=== PATIENT | female | born 1965 | race Caucasian/White ===

== ENCOUNTER → 2020-05-25 09:48 | Outpatient (BNVA) | payer OTHER, SELFPAY | PROVIDERS: PCP Internal Medicine; Visit Provider Nurse Practitioner | DX: Z76.89 Persons encountering health services in other specified circumstances (principal) ==

== ENCOUNTER 2020-07-14 13:51 | Emergency (ER) | payer OTHER, SELFPAY ==
[2020-07-14 13:52] VITALS: BP 154/75; PULSE 74; RESP 18; TEMP 37.1; O2SAT 100; BMI 52.0
--- NOTE | 2020-07-14 15:51 | ED_ITS ---
HPI - Nausea/Vomiting/Diarrhea General Chief complaint: Nausea/Vomiting/Diarrhea Stated complaint: VOMITING Time Seen by Provider: 07/14/20 15:33 Source: patient Mode of arrival: ambulatory Limitations: no limitations History of Present Illness HPI Narrative: 54 y/o female presenting with nausea and vomiting starting today after she was seen at the dentist for tooth infection. She was seen in the Urgent Care clinic yesterday for reports of tooth infection for the last 2 weeks. She was prescribed Augmentin and referred to dental today. She states the dentist cleaned her teeth. No plans to remove the tooth at this time due to active infection. On the way home from the dentist she started vomiting. She has worsening mouth pain and a new tender white bubble on the outter gum of her affected tooth. She denies fever or chills. She states she has generalized abdominal pain and epigastric burning. MD elicited complaint: nausea and vomiting Related Data Home Medications Medication Instructions Recorded Confirmed ondansetron HCl 4 mg tablet 4 mg PO Q8H 05/25/20 05/25/20 Previous Rx's Medication Instructions Recorded azithromycin 250 mg tablet See Rx Instructions PO .COMPLEX #6 03/12/20 tab docusate sodium 100 mg capsule 100 mg PO DAILY #30 cap 05/25/20 sennosides 8.6 mg capsule 17.2 mg PO BEDTIME 30 Days #60 cap 05/25/20 amoxicillin 875 mg-potassium 1 tab PO BID 10 Days #20 tab 07/13/20 clavulanate 125 mg tablet chlorhexidine gluconate [Peridex] 15 ml BUCCAL BID #118 ml 07/14/20 clindamycin HCl 300 mg PO Q8H #21 cap 07/14/20 oxycodone 5 mg PO Q6H PRN #10 tab 07/14/20 Allergies Allergy/AdvReac Type Severity Reaction Status Date / Time lamotrigine [LAMOTRIGINE] Allergy Severe Rash Verified 07/14/20 13:56 sulfamethoxazole Allergy Mild ITCHY Verified 07/14/20 13:56 [From ] trimethoprim [From ] Allergy Mild ITCHY Verified 07/14/20 13:56 Septra Allergy Unknown itchy Verified 07/14/20 13:56 Sulfa (Sulfonamide Allergy Unknown itchy Verified 05/25/20 09:50 Antibiotics) Review of Systems Review of Systems: Constitutional: No Fever, No Chills ENT/Mouth: No sore throat, No Rhinorrhea, No Swallowing Difficulty, +tooth pain, +jaw pain Cardiovascular: No Chest Pain, No SOB, No Orthopnea, No Edema Respiratory: No Cough, No Sputum, No Wheezing, No dyspnea Gastrointestinal: + Nausea, + Vomiting, No Diarrhea, + abdominal Pain Musculoskeletal: No joint pain, No Myalgias Skin: No Skin Lesions, No rash Neuro: No Weakness, No Numbness, No Dizziness, + Headache Psych: + Anxiety/Panic, No Depression Heme/Lymph: No Bruising, No Lymphadenopathy [facility] Past Medical History Surgical History (Updated 05/25/20 @ 09:59 by KACIE Davies) History of carpal tunnel release (~2019) History of esophagogastroduodenoscopy (EGD) History of tonsillectomy Hx of colonoscopy Hx of hemorrhoidectomy Family History Family History (Updated 05/25/20 @ 09:56 by KACIE Davies) Mother Stomach problems Father Heart problem Daughter Diabetes Other Bipolar 1 disorder Social History Social History (Updated 05/25/20 @ 09:58 by KACIE Davies) Alcohol intake: current Alcohol intake frequency: a few times a week Alcohol type: wine Smoking Status: Current every day smoker Tobacco Type: E-Cigarette Use of substances other than those prescribed or required for medical reasons: No Substance Use Type: Marijuana Advance Directives: No Advance Directives Information Provided: No Physical Exam Vital Signs: Vital Signs: Last Vital Signs Temp 99.5 F 07/14/20 15:55 Pulse 72 07/14/20 15:55 Resp 19 07/14/20 15:55 BP 154/86 H 07/14/20 15:55 Pulse Ox 99 07/14/20 15:55 Body Mass Index 52.0 Appearance: Alert. Oriented X3. No acute distress. Eyes: Pupils equal, round and reactive to light. ENT: #18/#17 with dental decay and surrounding edema. <1cm fluctuant and white area consistent with abscess. no trismus Neck: Normal inspection. Neck supple. CVS: Normal heart rate and rhythm. Pulses normal. Respiratory: No respiratory distress. Breath sounds normal. Abdomen: Soft and nontender. +BS x4 Skin: Skin warm and dry. Normal skin color. Normal skin turgor. No rashes. Extremities: No lower extremity edema. Neuro: Oriented X 3. No motor deficit. No sensory deficit. Course Course Course Narrative: 54 y/o female presenting with N/V and dental infection. Abscess evident on exam. Topical lidocaine ordered with plan to attempt drainage. Labs, cultures orderd. IV abx, IV anti-emetics and IV pain medicine ordered as well. Reevaluation(s) Reevaluation #1: Patient tolerated drainage well. Labs are unremarkable. No vomiting here. Stable for discharge with PO clinda, pain control and f/u with Dental tomorrow. Patient agrees with plan. Procedures Abscess I/D Site: oral Side (if applicable): left Local Anesthetic: other anesthetic (topical lidocaine ) Technique: incised with blade Sent for culture/gram staining?: No Irrigation: No Packing used?: none Complications: bleeding MDM - Nausea/Vomiting/Diarrhea Lab Data Result diagrams: 07/14/20 16:18 07/14/20 16:18 Labs: Lab Results 07/14/20 07/14/20 07/14/20 Range/Units 16:18 16:18 16:18 WBC 10.0 (4.8-10.8) X10*3/uL RBC 4.17 L (4.20-5.50) X10*6/uL Hgb 13.8 (12.0-16.0) g/dl Hct 40.7 (37-47) % MCV 97.6 (80-98) fL MCH 33.1 H (27.0-33.0) pg MCHC 33.9 (31.0-35.0) g/dl RDW 11.4 (11.0-16.0) % Plt Count 252 (160-400) X10*3/uL MPV 9.2 L (9.4-12.3) fL Immature Gran % (Auto) 0.4 (0.0-0.4) % Neut % (Auto) 75.0 H (45-73) % Lymph % (Auto) 12.0 L (20-40) % [place] % (Auto) 12.1 H (2-11) % Eos % (Auto) 0.1 (0-4) % Baso % (Auto) 0.4 (0-2) % Lymph # (Auto) 1.2 (1.2-4.9) X10*3/uL [place] # (Auto) 1.2 (0.1-1.2) X10*3/uL Eos # (Auto) 0.0 (0.0-0.4) X10*3/uL Baso # (Auto) 0.0 (0.0-0.2) X10*3/uL Abs Immat Gran (auto) 0.04 H (0.00-0.03) X10*3/uL Absolute Neuts (auto) 7.5 (2.0-8.3) X10*3/uL Absolute Nucleated RBC 0.000 (0.0-0.012) X10*3/uL Nucleated RBC % (auto) 0.0 (0.0-0.2) /100WBC Sodium 138 (135-145) mmol/L Potassium 4.3 (3.3-5.1) mmol/L Chloride 100 (96-108) mmol/L Carbon Dioxide 26 (22-29) mmol/L Anion Gap 16 (12-20) BUN 8 L (9-16) mg/dL Creatinine 0.78 (0.5-1.4) mg/dL Estim Creat Clear Calc 100.0 Estimated GFR > 60 Random Glucose 107 (60-115) mg/dL Lactic Acid 0.8 (0.5-2.0) mmol/L Calcium 9.5 (8.4-10.2) mg/dL Magnesium 2.1 (1.6-2.6) mg/dL Total Bilirubin 0.8 (0.0-1.0) mg/dL Direct Bilirubin 0.4 (0.0-0.5) mg/dL AST 22 (5-31) U/L ALT 17 (0-31) U/L Alkaline Phosphatase 95 (39-117) U/L Total Protein 6.9 (6.5-8.0) g/dL Albumin 4.5 (3.5-5.0) g/dL Lipase 36 (8-78) U/L Critical Care Time Critical Care Time Critical Care Time: No Discharge Plan Discharge Clinical Impression: Abscess, dental Patient Disposition: Home, Self-Care Instructions: Dental Abscess (ED) Additional Instructions: Follow up with your dentist tomorrow for re-evaluation. Stop taking the Augmentin and start taking Clindamycin instead. Take the prescribed medication as needed for pain. Recommend alternating Tylenol and Motrin every 4 hours. Use the prescription mouth wash 2 times per day. If you have worsening pain, swelling or any other concerning problem come back to the ER for further evaluation. Prescriptions: New clindamycin HCl 300 mg capsule 300 mg PO Q8H Qty: 21 RF: 0 oxycodone 5 mg tablet 5 mg PO Q6H PRN (Reason: pain) Qty: 10 RF: 0 chlorhexidine gluconate [Peridex] 0.12 % mouthwash 15 ml buccal BID Qty: 118 RF: 0 No Action azithromycin 250 mg tablet See Rx Instructions PO .COMPLEX Qty: 6 RF: 0 amoxicillin-pot clavulanate 875-125 mg tablet 1 tab PO BID 10 Days Qty: 20 RF: 0 ondansetron HCl [Zofran] 4 mg tablet 4 mg PO Q8H RF: 0 senna 8.6 mg capsule 17.2 mg PO BEDTIME 30 Days Qty: 60 RF: 6 docusate sodium [Colace] 100 mg capsule 100 mg PO DAILY Qty: 30 RF: 6
[2020-07-14 15:55] VITALS: BP 154/86; PULSE 72; RESP 19; TEMP 37.5; O2SAT 99
[2020-07-14] MEDS: Lidocaine HCl 4 % Laryng-O-Jet 4 ML 1 APPL TOPICAL (16:27)
[2020-07-14] MEDS: Morphine Sulfate 4 MG/ML CARTRIDGE IVPUSH (16:27)
[2020-07-14] MEDS: Clindamycin Phosphate/D5W 600 MG/50 ML PIGGYBACK 100 MG IV (16:27)
[2020-07-14] MEDS: ondansetron HCL 4 MG/2 ML VIAL IVPUSH (16:27)
[2020-07-14] MEDS: 0.9 % Sodium Chloride 1,000 ML 999 ML IVCONT (16:27)
[2020-07-14 16:31] LABS: MANUAL DIFF FLAG NO
[2020-07-14 16:58] LABS: Basophils Percent Auto 0.4 % (0-2); Eosinophils Percent Auto 0.1 % (0-4); Hematocrit 40.7 % (37-47); Hemoglobin 13.8 g/dl (12.0-16.0); Imm Gran Abs Auto 0.04 X10*3/uL (0.00-0.03); Imm Gran Pct Auto 0.4 % (0.0-0.4); Lymphocytes Absolute Auto 1.2 X10*3/uL (1.2-4.9); Mean Corpuscular HGB Conc 33.9 g/dl (31.0-35.0); Mean Corpuscular Hemoglobin 33.1 pg (27.0-33.0); Mean Corpuscular Volume 97.6 fL (80-98); Mean Platelet Volume 9.2 fL (9.4-12.3); Monocytes Absolute Auto 1.2 X10*3/uL (0.1-1.2); Monocytes Percent Auto 12.1 % (2-11); Neutrophils Absolute Auto 7.5 X10*3/uL (2.0-8.3); Platelet Count 252 X10*3/uL (160-400); Red Blood Count 4.17 X10*6/uL (4.20-5.50); Red Cell Distribution Width 11.4 % (11.0-16.0)
[2020-07-14 16:59] LABS: Lactic Acid 0.8 mmol/L (0.5-2.0)
[2020-07-14 17:03] LABS: Alanine Aminotransferase 17 U/L (0-31); Albumin Level 4.5 g/dL (3.5-5.0); Alkaline Phosphatase 95 U/L (39-117); Anion Gap 16 (12-20); Aspartate Amino Transferase 22 U/L (5-31); Bilirubin Direct 0.4 mg/dL (0.0-0.5); Bilirubin Total 0.8 mg/dL (0.0-1.0); Blood Urea Nitrogen 8 mg/dL (9-16); Calcium 9.5 mg/dL (8.4-10.2); Carbon Dioxide 26 mmol/L (22-29); Chloride 100 mmol/L (96-108); Estimated Glomerular Filt Rate > 60; Glucose Random 107 mg/dL (60-115); Lipase 36 U/L (8-78); Magnesium 2.1 mg/dL (1.6-2.6); Potassium 4.3 mmol/L (3.3-5.1); Sodium 138 mmol/L (135-145); Total Protein 6.9 g/dL (6.5-8.0)
[2020-07-14] MEDS: Ketorolac Tromethamine 30 MG/ML VIAL IVPUSH (17:38)
[2020-07-14 17:51] LABS: Glucose Urine UA NEG (NEG); Leukocyte Esterase Urine NEG (NEG); Nitrite Urine NEG (NEG); PH 5.5 (5.0-8.0); Specific Gravity - Urine <= 1.005 (1.005-1.025); Urine Blood NEG (NEG); Urine Ketones 15 MG/DL (NEG); Urine Protein NEG (NEG-TRACE)
[2020-07-14 17:52] LABS: Appearance Urine CLEAR; Color Urine YELLOW
[2020-07-14] MEDS: oxyCODONE HCl Immed Release 5 MG TABLET PO (18:11)
== END 2020-07-14 18:23 | disposition home or self-care (01) ==
PROVIDERS: Physician Assistant; Emergency Provider Emergency Medicine Emergency Medical Services; PCP Internal Medicine
DX: K04.7 Periapical abscess without sinus (principal); R11.2 Nausea with vomiting, unspecified; R10.13 Epigastric pain; F12.90 Cannabis use, unspecified, uncomplicated; F17.200 Nicotine dependence, unspecified, uncomplicated; Z71.6 Tobacco abuse counseling; Z79.899 Other long term (current) drug therapy
CPT/HCPCS: 36415; 40800; 80048; 80076; 81003; 83605; 83690; 83735; 85025; 87040; 96361; 96374; 96375; 99284; J1885; J2270; J2405

== ENCOUNTER 2020-09-30 14:49 | Outpatient (REF) | payer OTHER, SELFPAY ==
[2020-10-07 03:52] LABS: HPV mRNA E6/E7 Not Detected (Not Detected)
== END 2020-09-30 14:50 | disposition home or self-care (01) ==
LOC: HO.LAB 14:49
PROVIDERS: Visit Provider Internal Medicine
DX: Z12.4 Encounter for screening for malignant neoplasm of cervix (principal); Z11.51 Encounter for screening for human papillomavirus (HPV)
CPT/HCPCS: 87624; 88142

== ENCOUNTER 2020-10-04 16:25 | Inpatient (IN) | payer OTHER, SELFPAY ==
--- NOTE | ~2020-10-04 | CT_ITS ---
EXAMINATION: CT ABDOMEN AND PELVIS WITH CONTRAST CLINICAL INFORMATION: Abdomen pain COMPARISON: Portions of a previous study 09/18/19 TECHNIQUE: Multidetector volumetric images were obtained from the superior aspect of the liver through the pubic symphysis following administration 85 mL of Omnipaque 350 intravenous contrast. Sagittal and coronal reformatted images were obtained on the technologist's workstation. Oral contrast: No This CT examination was performed using dose optimization techniques as appropriate, variously including the following: *Automated exposure control *Adjustment of mA and/or kV according to patient size (this includes techniques or standardized protocols for targeted exams where dose is matched to indication/reason for exam; i.e. extremities or head) *Use of iterative reconstruction technique DLP: 365 mGy-cm FINDINGS: Digital Claims Supervisor: Moderate amount of gas within the abdomen and pelvis. Fecal residue within the colon. No evidence of small bowel obstruction. LUNG BASES: No suspicious abnormality in the visualized portions of the lower chest. LIVER, GALLBLADDER, AND BILIARY TREE: There are multiple sharply circumscribed low attenuating liver lesions. These are likely cysts and are unchanged. These do not require any further evaluation. There are no opaque gallstones. There is no biliary dilation. PANCREAS: Within normal limits SPLEEN: Normal ADRENAL GLANDS: No suspicious abnormality KIDNEYS AND URETERS: There is no dilation of the urinary collecting system. The nephrograms are symmetric. No suspicious renal mass. BLADDER: The bladder wall is mildly thickened. No focal mass. GASTROINTESTINAL TRACT: There is metallic suture at the anorectal junction. The sigmoid colon is markedly abnormal. There is colonic wall thickening luminal narrowing and pericolonic fat stranding. There are diverticula in the area. No convincing drainable abscess. No evidence of small bowel obstruction. The splenic flexure and descending colon are not well evaluated. The stomach is difficult to assess due to incomplete distention. ABDOMINAL WALL: No significant hernia is appreciated. LYMPH NODES: There are no measurably enlarged lymph nodes. VASCULAR: There is no aortic aneurysm. The portal vein enhances. PELVIC VISCERA: The uterus appears within normal limits. There is no large adnexal mass. OSSEOUS STRUCTURES: No suspicious abnormality CT/CT abdomen pelvis w con IMPRESSION: There are abnormalities most consistent with acute sigmoid diverticulitis without definite drainable abscess or bowel obstruction. There is no pneumatosis or pneumoperitoneum. Previous anorectal junction surgery.
[2020-10-04 16:56] VITALS: BP 130/73; PULSE 99; RESP 16; TEMP 37.5; O2SAT 97; BMI 23.6
[2020-10-04 17:25] LABS: Basophils Absolute Auto 0.1 X10*3/uL (0.0-0.2); Basophils Percent Auto 0.6 % (0-2); Eosinophils Absolute Auto 0.1 X10*3/uL (0.0-0.4); Hematocrit 39.4 % (37-47); Hemoglobin 13.4 g/dl (12.0-16.0); Imm Gran Abs Auto 0.04 X10*3/uL (0.00-0.03); Imm Gran Pct Auto 0.3 % (0.0-0.4); Lymphocytes Absolute Auto 1.5 X10*3/uL (1.2-4.9); Lymphocytes Percent Auto 12.5 % (20-40); MANUAL DIFF FLAG SCAN; Mean Corpuscular Hemoglobin 33.4 pg (27.0-33.0); Mean Corpuscular Volume 98.3 fL (80-98); Mean Platelet Volume 8.8 fL (9.4-12.3); Monocytes Absolute Auto 1.9 X10*3/uL (0.1-1.2); Monocytes Percent Auto 15.8 % (2-11); Neutrophils Absolute Auto 8.3 X10*3/uL (2.0-8.3); Neutrophils Percent Auto 69.8 % (45-73); Platelet Count 246 X10*3/uL (160-400); Red Blood Count 4.01 X10*6/uL (4.20-5.50); Red Cell Distribution Width 11.7 % (11.0-16.0); SCAN SMEAR FLAG 1; White Blood Count 11.9 X10*3/uL (4.8-10.8)
[2020-10-04 17:29] LABS: Glucose Urine UA NEG (NEG); Leukocyte Esterase Urine TRACE (NEG); Nitrite Urine NEG (NEG); Specific Gravity - Urine 1.015 (1.005-1.025); UACC Culture Trigger YES; Urine Blood NEG (NEG); Urine Ketones 15 MG/DL (NEG); Urine Protein NEG (NEG-TRACE)
[2020-10-04 17:30] LABS: Appearance Urine CLEAR; Color Urine YELLOW
[2020-10-04 17:41] LABS: Bacteria Urine TRACE /LPF; Squamous Epithelial Cell Urine TRACE /LPF
[2020-10-04 17:47] LABS: SLIDE REVIEW VERIFIED
[2020-10-04 18:05] LABS: Alanine Aminotransferase 17 U/L (0-31); Albumin Level 4.6 g/dL (3.5-5.0); Alkaline Phosphatase 92 U/L (39-117); Anion Gap 13 (12-20); Aspartate Amino Transferase 21 U/L (5-31); Bilirubin Total 0.6 mg/dL (0.0-1.0); Blood Urea Nitrogen 8 mg/dL (9-16); Calcium 9.5 mg/dL (8.4-10.2); Carbon Dioxide 26 mmol/L (22-29); Chloride 101 mmol/L (96-108); Creatinine Clr Calc Pharmacy 59.9; Estimated Glomerular Filt Rate > 60; Glucose Random 90 mg/dL (60-115); Potassium 4.2 mmol/L (3.3-5.1); Sodium 136 mmol/L (135-145); Total Protein 6.9 g/dL (6.5-8.0)
[2020-10-04 19:10] VITALS: RESP 18
[2020-10-04] MEDS: 0.9 % Sodium Chloride 1,000 ML 999 ML IVCONT ×2 (19:10→21:17)
[2020-10-04] MEDS: Morphine Sulfate 4 MG/ML CARTRIDGE IVPUSH ×2 (19:10→21:16)
[2020-10-04] MEDS: ondansetron HCL 4 MG/2 ML VIAL IVPUSH (19:10)
[2020-10-04 19:18] VITALS: BP 127/70; PULSE 71; RESP 16; TEMP 36.6; O2SAT 97
--- NOTE | 2020-10-04 19:19 | ED_ITS ---
HPI - Abdominal Pain General Chief Complaint: Abdominal Pain Stated Complaint: abdominal pain Time Seen by Provider: 10/04/20 17:29 Source: patient Mode of arrival: ambulatory Limitations: no limitations History of Present Illness HPI narrative: 54-year-old female with past medical history of pancreatitis, celiac disease, GERD, IBS presented to the emergency department with diffuse abdominal pain, nausea, vomiting, diarrhea, intermittent constipation, and bright red blood per rectum with large clots for several days. States that she ate soy products on the , and feels that she could be having a reaction or gastroenteritis. She is describing 10/10 rectal pain, feels more like a pressure. This pressure is unrelieved with bowel movements. She denies chest pain or pressure, palpitations abdominal distention, dysuria, hematuria, fevers, chills, and edema. MD elicited complaint: abdominal pain Pertinent past history: constipation and gastrointestinal bleeding Onset (ago): week(s) (1) Pain Consistency: constant Location: diffuse Severity: severe Pain scale (0-10): 10 Quality: cramping, stabbing and aching Exacerbating factors: eating and bowel movement Relieving factors: nothing Associated symptoms: nausea, vomiting and diarrhea Related Data Home Medications Medication Instructions Recorded Confirmed buspirone 30 mg tablet 30 mg PO BID 09/30/20 10/04/20 carbamazepine 200 mg tablet 200 mg PO BID 09/30/20 10/04/20 dicyclomine [Bentyl] 10 mg PO BID PRN 10/04/20 10/04/20 sennosides [Senna Laxative] 2 tab PO BEDTIME PRN 10/04/20 10/04/20 Allergies Allergy/AdvReac Type Severity Reaction Status Date / Time lamotrigine [LAMOTRIGINE] Allergy Severe Rash Verified 09/30/20 13:06 sulfamethoxazole Allergy Mild ITCHY Verified 09/30/20 13:06 [From ] trimethoprim [From ] Allergy Mild ITCHY Verified 09/30/20 13:06 Septra Allergy Unknown itchy Verified 09/30/20 13:06 Sulfa (Sulfonamide Allergy Unknown itchy Verified 09/30/20 13:06 Antibiotics) Review of Systems Review of Systems Constitutional: No Weight loss, No Fever, No Chills, No Night Sweats, No Fatigue, No Malaise ENT/Mouth: No Hearing loss, No Ear Pain, No Nasal Congestion, No Sinus Pain, No Hoarseness, No sore throat, No Rhinorrhea, No Swallowing Difficulty Eyes: No Eye Pain, No Swelling, No Redness, No Foreign Body, No Discharge, No Vision Changes Cardiovascular: No Chest Pain, No SOB, No Dyspnea on Exertion, No Orthopnea, No Edema, No Palpitations Respiratory: No Cough, No Sputum, No Wheezing, No Smoke Exposure, No Dyspnea Gastrointestinal: Positive Nausea, Positive Vomiting, positive Diarrhea, positive abdominal Pain, positive Hematochezia, No Melena Genitourinary: no irregular bleeding, positive Dysuria, No Urinary Frequency, No Hematuria, No Urinary Incontinence, No Urgency, No Flank Pain, No Urinary Flow Changes, No Hesitancy Musculoskeletal: No joint pain, No Myalgias, No Joint Swelling Skin: No Skin Lesions, No rash Neuro: No Weakness, No Numbness, No Paresthesias, No Loss of Consciousness, No Dizziness, No Headache Psych: No Anxiety/Panic, No Depression, No SI/HI/AH/VH, No Social Issues Heme/Lymph: No Bruising, No Bleeding,No Lymphadenopathy Endocrine: No Polyuria, No Polydipsia, No Temperature Intolerance Yes all other systems are reviewed and are negative Physical Exam Vital Signs: Vital Signs: Last Vital Signs Temp 98 F 10/04/20 19:18 Pulse 71 10/04/20 19:18 Resp 18 10/04/20 21:16 BP 127/70 10/04/20 19:18 Pulse Ox 97 10/04/20 19:18 Body Mass Index 23.6 Appearance: Alert. Oriented X3. No acute distress. Head: Normal external exam. Normocephalic. Atraumatic. No Wolf signs noted. No raccoon eyes noted Eyes: PERRLA. EOMI. Conjunctiva and sclera normal. Eyelids normal. ENT: TM's Normal. Pharynx normal. Uvula midline. Moist mucous membranes. No trismus noted. No drooling noted. No muffled voice noted. Neck: Normal inspection. Neck supple. No adenopathy. Thyroid Normal. No meningeal signs. No neck mass noted. CVS: Tachycardic heart rate and rhythm. Heart sound normal. No murmurs noted. Pulses equal to all extremities. Respiratory: No respiratory distress. Painless inspiration. Breath sounds normal. No wheezes/rales/rhonchi noted. Chest nontender. No accessory muscle usage noted or decreased air movement noted. Abdomen: Soft and diffusely tender, no rigidity or rebound. Bowel sounds normal in all 4 quadrants. No distention noted. No organomegaly noted. No visible injury noted. Back: No CVA tenderness. Full range of motion noted. Skin: Skin warm and dry. Normal skin color. Normal skin turgor. No rashes/lesions/lacerations noted. Extremities: No lower extremity edema. Extremities exhibit normal range of motion. Extremities nontender. Neuro: cranial nerves 2-12 intact, no focal neural deficits, strength 5/5 to all extremities, No motor deficit. No sensory deficit. Course Course Course Narrative: 54-year-old female with past medical history of pancreatitis, celiac disease, GERD, IBS presented to the emergency department with diffuse abdominal pain, nausea, vomiting, diarrhea, intermittent constipation, and bright red blood per rectum with large clots for several days. Labs are protocoled while she was in the emergency department waiting room, white count elevated at 11.9, H&H 13.4/39.4 does not indicate any significant blood loss, urinalysis positive for trace leukocyte esterase, wbc's, and bacteria. Will order CT scan of abdomen pelvis with contrast. Will treat with 1 L of fluid, morphine, and Zofran. Approximately 40 minutes after IV medications patient states that the pain is 4/10. CT scan of abdomen pending. CT of abdomen and pelvis indicates diverticulitis, will order lactic, cultures, give ceftriaxone and Flagyl as she does have a UTI with symptoms of dysuria. 9:10 p.m. discussion with hospitalist regarding plan of care to admit for diverticulitis and UTI. MDM - Abdominal Pain Differential Diagnosis Differential diagnosis: Likely abdominal pain, calculus of kidney, constipation, diverticulitis, gastroenteritis, pancreatitis and peptic ulcer disease Medical Records Attestation: I reviewed the patient's medical records. Lab Data Attestation: I reviewed the patient's lab results. Result diagrams: 10/04/20 17:14 10/04/20 17:14 Labs: Lab Results 10/04/20 10/04/20 10/04/20 Range/Units 17:14 17:14 17:14 WBC 11.9 H (4.8-10.8) X10*3/uL RBC 4.01 L (4.20-5.50) X10*6/uL Hgb 13.4 (12.0-16.0) g/dl Hct 39.4 (37-47) % MCV 98.3 H (80-98) fL MCH 33.4 H (27.0-33.0) pg MCHC 34.0 (31.0-35.0) g/dl RDW 11.7 (11.0-16.0) % Plt Count 246 (160-400) X10*3/uL MPV 8.8 L (9.4-12.3) fL Immature Gran % (Auto) 0.3 (0.0-0.4) % Neut % (Auto) 69.8 (45-73) % Lymph % (Auto) 12.5 L (20-40) % [place] % (Auto) 15.8 H (2-11) % Eos % (Auto) 1.0 (0-4) % Baso % (Auto) 0.6 (0-2) % Lymph # (Auto) 1.5 (1.2-4.9) X10*3/uL [place] # (Auto) 1.9 H (0.1-1.2) X10*3/uL Eos # (Auto) 0.1 (0.0-0.4) X10*3/uL Baso # (Auto) 0.1 (0.0-0.2) X10*3/uL Abs Immat Gran (auto) 0.04 H (0.00-0.03) X10*3/uL Absolute Neuts (auto) 8.3 (2.0-8.3) X10*3/uL Absolute Nucleated RBC 0.000 (0.0-0.012) X10*3/uL Nucleated RBC % (auto) 0.0 (0.0-0.2) /100WBC Smear Tech's Comments VERIFIED Hold Purple Top SEE NOTE PT 10.8 (10.8-13.0) SEC INR 0.9 (0.9-1.1) Hold Blue Top SEE NOTE Sodium (135-145) mmol/L Potassium (3.3-5.1) mmol/L Chloride (96-108) mmol/L Carbon Dioxide (22-29) mmol/L Anion Gap (12-20) BUN (9-16) mg/dL Creatinine (0.5-1.4) mg/dL Estim Creat Clear Calc Estimated GFR Random Glucose (60-115) mg/dL Lactic Acid (0.5-2.0) mmol/L Calcium (8.4-10.2) mg/dL Total Bilirubin (0.0-1.0) mg/dL Direct Bilirubin (0.0-0.5) mg/dL AST (5-31) U/L ALT (0-31) U/L Alkaline Phosphatase (39-117) U/L Total Protein (6.5-8.0) g/dL Albumin (3.5-5.0) g/dL Lipase (8-78) U/L Urine Color Urine Appearance Urine pH (5.0-8.0) Ur Specific [place] (1.005-1.025) Urine Protein (NEG-TRACE) MG/DL Urine Glucose (UA) (NEG) MG/DL Urine Ketones (NEG) MG/DL Urine Blood (NEG) Urine Nitrite (NEG) Ur Leukocyte Esterase (NEG) Urine RBC (0) /HPF Urine WBC (0-4) /HPF Ur Squamous Epith Cells /LPF Urine Bacteria /LPF Stool Occult Blood (NEGATIVE) COVID-19 ([facility]) (Negative) COVID-19 Clin Com 10/04/20 10/04/20 10/04/20 Range/Units 17:14 17:15 19:09 WBC (4.8-10.8) X10*3/uL RBC (4.20-5.50) X10*6/uL Hgb (12.0-16.0) g/dl Hct (37-47) % MCV (80-98) fL MCH (27.0-33.0) pg MCHC (31.0-35.0) g/dl RDW (11.0-16.0) % Plt Count (160-400) X10*3/uL MPV (9.4-12.3) fL Immature Gran % (Auto) (0.0-0.4) % Neut % (Auto) (45-73) % Lymph % (Auto) (20-40) % [place] % (Auto) (2-11) % Eos % (Auto) (0-4) % Baso % (Auto) (0-2) % Lymph # (Auto) (1.2-4.9) X10*3/uL [place] # (Auto) (0.1-1.2) X10*3/uL Eos # (Auto) (0.0-0.4) X10*3/uL Baso # (Auto) (0.0-0.2) X10*3/uL Abs Immat Gran (auto) (0.00-0.03) X10*3/uL Absolute Neuts (auto) (2.0-8.3) X10*3/uL Absolute Nucleated RBC (0.0-0.012) X10*3/uL Nucleated RBC % (auto) (0.0-0.2) /100WBC Smear Tech's Comments Hold Purple Top PT (10.8-13.0) SEC INR (0.9-1.1) Hold Blue Top Sodium 136 (135-145) mmol/L Potassium 4.2 (3.3-5.1) mmol/L Chloride 101 (96-108) mmol/L Carbon Dioxide 26 (22-29) mmol/L Anion Gap 13 (12-20) BUN 8 L (9-16) mg/dL Creatinine 0.79 (0.5-1.4) mg/dL Estim Creat Clear Calc 59.9 Estimated GFR > 60 Random Glucose 90 (60-115) mg/dL Lactic Acid (0.5-2.0) mmol/L Calcium 9.5 (8.4-10.2) mg/dL Total Bilirubin 0.6 (0.0-1.0) mg/dL Direct Bilirubin 0.3 (0.0-0.5) mg/dL AST 21 (5-31) U/L ALT 17 (0-31) U/L Alkaline Phosphatase 92 (39-117) U/L Total Protein 6.9 (6.5-8.0) g/dL Albumin 4.6 (3.5-5.0) g/dL Lipase 32 (8-78) U/L Urine Color YELLOW Urine Appearance CLEAR Urine pH 7.0 (5.0-8.0) Ur Specific [place] 1.015 (1.005-1.025) Urine Protein NEG (NEG-TRACE) MG/DL Urine Glucose (UA) NEG (NEG) MG/DL Urine Ketones 15 (NEG) MG/DL Urine Blood NEG (NEG) Urine Nitrite NEG (NEG) Ur Leukocyte Esterase TRACE H (NEG) Urine RBC 1-4 (0) /HPF Urine WBC 5-9 H (0-4) /HPF Ur Squamous Epith Cells TRACE /LPF Urine Bacteria TRACE /LPF Stool Occult Blood NEGATIVE (NEGATIVE) COVID-19 ([facility]) (Negative) COVID-19 Clin Com 10/04/20 10/04/20 Range/Units 20:36 20:36 WBC (4.8-10.8) X10*3/uL RBC (4.20-5.50) X10*6/uL Hgb (12.0-16.0) g/dl Hct (37-47) % MCV (80-98) fL MCH (27.0-33.0) pg MCHC (31.0-35.0) g/dl RDW (11.0-16.0) % Plt Count (160-400) X10*3/uL MPV (9.4-12.3) fL Immature Gran % (Auto) (0.0-0.4) % Neut % (Auto) (45-73) % Lymph % (Auto) (20-40) % [place] % (Auto) (2-11) % Eos % (Auto) (0-4) % Baso % (Auto) (0-2) % Lymph # (Auto) (1.2-4.9) X10*3/uL [place] # (Auto) (0.1-1.2) X10*3/uL Eos # (Auto) (0.0-0.4) X10*3/uL Baso # (Auto) (0.0-0.2) X10*3/uL Abs Immat Gran (auto) (0.00-0.03) X10*3/uL Absolute Neuts (auto) (2.0-8.3) X10*3/uL Absolute Nucleated RBC (0.0-0.012) X10*3/uL Nucleated RBC % (auto) (0.0-0.2) /100WBC Smear Tech's Comments Hold Purple Top PT (10.8-13.0) SEC INR (0.9-1.1) Hold Blue Top Sodium (135-145) mmol/L Potassium (3.3-5.1) mmol/L Chloride (96-108) mmol/L Carbon Dioxide (22-29) mmol/L Anion Gap (12-20) BUN (9-16) mg/dL Creatinine (0.5-1.4) mg/dL Estim Creat Clear Calc Estimated GFR Random Glucose (60-115) mg/dL Lactic Acid 0.9 (0.5-2.0) mmol/L Calcium (8.4-10.2) mg/dL Total Bilirubin (0.0-1.0) mg/dL Direct Bilirubin (0.0-0.5) mg/dL AST (5-31) U/L ALT (0-31) U/L Alkaline Phosphatase (39-117) U/L Total Protein (6.5-8.0) g/dL Albumin (3.5-5.0) g/dL Lipase (8-78) U/L Urine Color Urine Appearance Urine pH (5.0-8.0) Ur Specific [place] (1.005-1.025) Urine Protein (NEG-TRACE) MG/DL Urine Glucose (UA) (NEG) MG/DL Urine Ketones (NEG) MG/DL Urine Blood (NEG) Urine Nitrite (NEG) Ur Leukocyte Esterase (NEG) Urine RBC (0) /HPF Urine WBC (0-4) /HPF Ur Squamous Epith Cells /LPF Urine Bacteria /LPF Stool Occult Blood (NEGATIVE) COVID-19 ([facility]) Negative (Negative) COVID-19 Clin Com See Note Imaging Data CT scan - abdomen: Attestation: I personally reviewed and interpreted this imaging study as follows: Radiologist's impression: EXAMINATION: CT ABDOMEN AND PELVIS WITH CONTRAST CLINICAL INFORMATION: Abdomen pain COMPARISON: Portions of a previous study 09/18/19 TECHNIQUE: Multidetector volumetric images were obtained from the superior aspect of the liver through the pubic symphysis following administration 85 mL of Omnipaque 350 intravenous contrast. Sagittal and coronal reformatted images were obtained on the technologist's workstation. Oral contrast: No This CT examination was performed using dose optimization techniques as appropriate, variously including the following: *Automated exposure control *Adjustment of mA and/or kV according to patient size (this includes techniques or standardized protocols for targeted exams where dose is matched to indication/reason for exam; i.e. extremities or head) *Use of iterative reconstruction technique DLP: 365 mGy-cm FINDINGS: Digital Crap Game Box Person: Moderate amount of gas within the abdomen and pelvis. Fecal residue within the colon. No evidence of small bowel obstruction. LUNG BASES: No suspicious abnormality in the visualized portions of the lower chest. LIVER, GALLBLADDER, AND BILIARY TREE: There are multiple sharply circumscribed low attenuating liver lesions. These are likely cysts and are unchanged. These do not require any further evaluation. There are no opaque gallstones. There is no biliary dilation. PANCREAS: Within normal limits SPLEEN: Normal ADRENAL GLANDS: No suspicious abnormality KIDNEYS AND URETERS: There is no dilation of the urinary collecting system. The nephrograms are symmetric. No suspicious renal mass. BLADDER: The bladder wall is mildly thickened. No focal mass. GASTROINTESTINAL TRACT: There is metallic suture at the anorectal junction. The sigmoid colon is markedly abnormal. There is colonic wall thickening luminal narrowing and pericolonic fat stranding. There are diverticula in the area. No convincing drainable abscess. No evidence of small bowel obstruction. The splenic flexure and descending colon are not well evaluated. The stomach is difficult to assess due to incomplete distention. ABDOMINAL WALL: No significant hernia is appreciated. LYMPH NODES: There are no measurably enlarged lymph nodes. VASCULAR: There is no aortic aneurysm. The portal vein enhances. PELVIC VISCERA: The uterus appears within normal limits. There is no large adnexal mass. OSSEOUS STRUCTURES: No suspicious abnormality CT/CT abdomen pelvis w con IMPRESSION: There are abnormalities most consistent with acute sigmoid diverticulitis without definite drainable abscess or bowel obstruction. There is no pneumatosis or pneumoperitoneum. Previous anorectal junction surgery. Critical Care Time Critical Care Time Critical Care Time: Yes Total Critical Care Time: 45 Attestation: I have personally provided critical care time exclusive of time spent on separately billable procedures. Time includes review of laboratory data, radi ology results, discussion with consultants, and monitoring for potential decompensation. Interventions were performed as documented. Discharge Plan Discharge Clinical Impression: Diverticulitis UTI (urinary tract infection) Qualifiers: Urinary tract infection type: acute cystitis Hematuria presence: with hematuria Qualified Code(s): N30.01 - Acute cystitis with hematuria Patient Disposition: Admitted As Inpatient [facility] Past Medical History Attestation statement: The following information was validated with the patient. Source: old records reviewed Medical History Annual physical exam Bipolar 1 disorder Celiac disease Environmental allergies IBS (irritable bowel syndrome) Mammogram declined Vitamin D deficiency Surgical History History of carpal tunnel release (~2019) History of esophagogastroduodenoscopy (EGD) History of tonsillectomy Hx of colonoscopy Hx of hemorrhoidectomy Family History Family History Mother Stomach problems Father Heart problem Daughter Diabetes Other Bipolar 1 disorder Social History Social History Alcohol intake: never Smoking Status: Never smoker Tobacco Type: E-Cigarette Use of substances other than those prescribed or required for medical reasons: No Substance Use Type: Marijuana Advance Directives: No Advance Directives Information Provided: No
[2020-10-04 19:23] LABS: OBS1 NEGATIVE (NEGATIVE)
[2020-10-04 19:24] LABS: OBS Int Ctl Valid YES
[2020-10-04 19:28] LABS: INTERNATIONAL NORM RATIO 0.9 (0.9-1.1); Prothrombin Time 10.8 SEC (10.8-13.0)
[2020-10-04] MEDS: iohexoL 350 MG/ML 100 ML INFUS..BTL IV (19:38)
[2020-10-04 19:44] LABS: Bilirubin Direct 0.3 mg/dL (0.0-0.5); Lipase 32 U/L (8-78)
[2020-10-04] MEDS: cefTRIAXone sodium 1 GM in 0.9 % Sodium Chloride 50 ML IV (20:43)
[2020-10-04 20:57] LABS: COVID-19 Test Negative (Negative)
[2020-10-04 21:05] LABS: Lactic Acid 0.9 mmol/L (0.5-2.0)
[2020-10-04 21:16] VITALS: RESP 18
[2020-10-04] MEDS: metroNIDAZOLE/NS 500 MG/100 ML PIGGYBACK 100 MG IV (21:16)
--- NOTE | 2020-10-04 21:26 | P.HPHOSP_ITS ---
History of Present Illness Date of Service: 10/04/20 Chief Complaint: Abd pain 54-year-old female with a past medical history of celiac disease, GERD, IBS, history of pancreatitis presented to the hospital with a chief complaint of abdominal pain for past 1 week. Patient mentions that abdominal pain is crampy in nature associated with nausea and vomiting. Also complains of diarrhea. Patient also mentions she initially noted bright lipid per rectum. But for the last 2 days she has not had any blood in the stool. Denies any fever chills cough. Denies any numbness tingling. As the symptoms were not improving came to the ER for further evaluation. Denies any chest pain palpitations lightheadedness or dizziness. Review of all other systems is negative except mentioned above ER course: Per ER team patient noted to have mild abdominal tenderness, no guarding no rigidity. Given IV pain medications. H&H stable. Mild leukocytosis. Urinalysis abnormal consistent with UTI. CT scan showed diverticulitis.guaiac negative; given antibiotics COUNTS INCLUDE 234 BEDS AT THE [facility] Medical History (Updated 10/20/20 @ 13:01 by Carlny Azul MD) Annual physical exam Bipolar 1 disorder Celiac disease Celiac disease Diverticulosis Environmental allergies GERD (gastroesophageal reflux disease) IBS (irritable bowel syndrome) IBS (irritable bowel syndrome) Mammogram declined Vitamin D deficiency Family History Mother Stomach problems Father Heart problem Daughter Diabetes Other Bipolar 1 disorder Surgical History History of carpal tunnel release (~2019) History of esophagogastroduodenoscopy (EGD) History of tonsillectomy Hx of colonoscopy Hx of hemorrhoidectomy Social History Household Members: Significant Other Housing: House Do you presently have visiting nurse or other home services: No Alcohol intake: never Smoking Status: Never smoker Tobacco Type: E-Cigarette Substance Use Type: Marijuana service: No Current occupational status: disabled Meds Allergies Allergy/AdvReac Type Severity Reaction Status Date / Time lamotrigine [LAMOTRIGINE] Allergy Severe Rash Verified 10/20/20 12:35 sulfamethoxazole Allergy Mild ITCHY Verified 10/20/20 12:35 [From ] trimethoprim [From ] Allergy Mild ITCHY Verified 10/20/20 12:35 Septra Allergy Unknown itchy Verified 10/20/20 12:35 Sulfa (Sulfonamide Allergy Unknown itchy Verified 10/20/20 12:35 Antibiotics) Active Medications: Current Medications Generic Name Dose Route Start Last Admin Trade Name Freq PRN Reason Stop Dose Admin Sodium Chloride 1,000 mls @ 999 mls/hr 10/04/20 20:30 10/04/20 21:17 Ns IVCONT 10/04/20 21:30 999 mls/hr .Q1H1M SY Administration Dextrose/Sodium Chloride 1,000 mls @ 100 mls/hr 10/04/20 21:15 D51/2ns IVCONT .Q10H SY Ceftriaxone Sodium 1 gm/ 50 mls @ 100 mls/hr 10/05/20 21:00 Sodium Chloride IV Q24H SY Metronidazole 500 mg in 100 mls @ 100 mls/hr 10/05/20 05:00 Flagyl IV Q8H SY Pantoprazole Sodium 40 mg 10/05/20 06:30 Pantoprazole Sodium 40 Mg/10 Ml Vial IVPUSH DAILY@0630 [facility] Sodium Chloride 3 ml 10/05/20 00:00 0.9 % Sodium Chloride Flush 3 Ml Syringe IVFLUSH QSHIFT [facility] Home Medications Medication Instructions Recorded Confirmed Last Taken Type buspirone 30 mg tablet 30 mg PO BID 09/30/20 10/04/20 10/04/20 09:00 History carbamazepine 200 mg tablet 200 mg PO BID 09/30/20 10/04/20 10/04/20 09:00 History dicyclomine 10 mg PO BID PRN 10/04/20 10/04/20 Unknown History sennosides [Senna Laxative] 2 tab PO BEDTIME PRN 10/04/20 10/04/20 Unknown History Physical Exam Vital Signs and Narrative: Vital Signs: Last Vital Signs Temp 98 F 10/04/20 19:18 Pulse 71 10/04/20 19:18 Resp 18 10/04/20 21:16 BP 127/70 10/04/20 19:18 Pulse Ox 97 10/04/20 19:18 Body Mass Index 23.6 Gen: Appears be in no acute distress HEENT: NCAT, Moist mucosa. Pulmonary: Vesicular breath sounds, fair air entry CVS: Normal S1-S2 Abdomen: BS+, Soft, tender the lower quadrants. No guarding no rigidity Extremities: Warm well perfused Neuro: Alert and awake. Results Labs CBC and Chem 7: 10/06/20 05:03 10/05/20 06:12 Labs: Laboratory Results - last 24 hr 10/04/20 10/04/20 10/04/20 17:14 17:14 17:14 MCV 98.3 H MCH 33.4 H MCHC 34.0 RDW 11.7 Plt Count 246 MPV 8.8 L Immature Gran % (Auto) 0.3 Neut % (Auto) 69.8 Lymph % (Auto) 12.5 L [place] % (Auto) 15.8 H Eos % (Auto) 1.0 Baso % (Auto) 0.6 Lymph # (Auto) 1.5 [place] # (Auto) 1.9 H Eos # (Auto) 0.1 Baso # (Auto) 0.1 Abs Immat Gran (auto) 0.04 H Absolute Neuts (auto) 8.3 Absolute Nucleated RBC 0.000 Nucleated RBC % (auto) 0.0 Smear Tech's Comments VERIFIED Hold Purple Top SEE NOTE PT 10.8 INR 0.9 Hold Blue Top SEE NOTE Anion Gap Estim Creat Clear Calc Estimated GFR Random Glucose Lactic Acid Calcium Total Bilirubin Direct Bilirubin AST ALT Alkaline Phosphatase Total Protein Albumin Lipase Urine Color Urine Appearance Urine pH Ur Specific [place] Urine Protein Urine Glucose (UA) Urine Ketones Urine Blood Urine Nitrite Ur Leukocyte Esterase Urine RBC Urine WBC Ur Squamous Epith Cells Urine Bacteria Stool Occult Blood COVID-19 ([facility]) COVID-19 Clin [facility] 10/04/20 10/04/20 10/04/20 17:14 17:15 19:09 MCV MCH MCHC RDW Plt Count MPV Immature Gran % (Auto) Neut % (Auto) Lymph % (Auto) [place] % (Auto) Eos % (Auto) Baso % (Auto) Lymph # (Auto) [place] # (Auto) Eos # (Auto) Baso # (Auto) Abs Immat Gran (auto) Absolute Neuts (auto) Absolute Nucleated RBC Nucleated RBC % (auto) Smear Tech's Comments Hold Purple Top PT INR Hold Blue Top Anion Gap 13 Estim Creat Clear Calc 59.9 Estimated GFR > 60 Random Glucose 90 Lactic Acid Calcium 9.5 Total Bilirubin 0.6 Direct Bilirubin 0.3 AST 21 ALT 17 Alkaline Phosphatase 92 Total Protein 6.9 Albumin 4.6 Lipase 32 Urine Color YELLOW Urine Appearance CLEAR Urine pH 7.0 Ur Specific [place] 1.015 Urine Protein NEG Urine Glucose (UA) NEG Urine Ketones 15 Urine Blood NEG Urine Nitrite NEG Ur Leukocyte Esterase TRACE H Urine RBC 1-4 Urine WBC 5-9 H Ur Squamous Epith Cells TRACE Urine Bacteria TRACE Stool Occult Blood NEGATIVE COVID-19 ([facility]) COVID-19 Clin Com 10/04/20 10/04/20 20:36 20:36 MCV MCH MCHC RDW Plt Count MPV Immature Gran % (Auto) Neut % (Auto) Lymph % (Auto) [place] % (Auto) Eos % (Auto) Baso % (Auto) Lymph # (Auto) [place] # (Auto) Eos # (Auto) Baso # (Auto) Abs Immat Gran (auto) Absolute Neuts (auto) Absolute Nucleated RBC Nucleated RBC % (auto) Smear Tech's Comments Hold Purple Top PT INR Hold Blue Top Anion Gap Estim Creat Clear Calc Estimated GFR Random Glucose Lactic Acid 0.9 Calcium Total Bilirubin Direct Bilirubin AST ALT Alkaline Phosphatase Total Protein Albumin Lipase Urine Color Urine Appearance Urine pH Ur Specific [place] Urine Protein Urine Glucose (UA) Urine Ketones Urine Blood Urine Nitrite Ur Leukocyte Esterase Urine RBC Urine WBC Ur Squamous Epith Cells Urine Bacteria Stool Occult Blood COVID-19 ([facility]) Negative COVID-19 Clin Com See Note Imaging Radiologist's Impressions: Impressions Abdomen/Pelvis CT 10/04/20 18:53 IMPRESSION: There are abnormalities most consistent with acute sigmoid diverticulitis without definite drainable abscess or bowel obstruction. There is no pneumatosis or pneumoperitoneum. Previous anorectal junction surgery. Assessment and Plan (1) Diverticulitis: Status: Acute 54-year-old female with a past medical history of GERD, celiac disease, IBS, history of pancreatitis presented to the hospital with a chief complaint of nausea vomiting abdominal pain and diarrhea. Also complained of bright red blood per rectum. Acute diverticulitis: Continue ceftriaxone and Flagyl. Will also consult General surgery. NPO, IV fluids, supportive care. Pain control CT scan showed acute sigmoid diverticulitis without definite drainable abscess or bowel obstruction. Bright red blood per rectum: Currently guaiac negative. Serial H& H. Will continue to monitor. GI consult For all other chronic conditions, home medications will be continued DVT prophylaxis: SCD boots Code status: Full code
[2020-10-04] MEDS: Pantoprazole Sodium 40 MG/10 ML VIAL IVPUSH (22:38)
[2020-10-04] MEDS: Dextrose 5 % and 0.45 % NaCl 1,000 ML 100 ML IVCONT (22:38)
[2020-10-05] VITALS (7 sets, daily range): BP systolic 112–151; BP diastolic 57–76; PULSE 51–78; RESP 15–20; TEMP 36.2–37.1; O2SAT 97–99; BMI 23.6
[2020-10-05] MEDS: Acetaminophen 325 MG TABLET 650 MG PO ×4 (02:56→20:51)
[2020-10-05] MEDS: metroNIDAZOLE/NS 500 MG/100 ML PIGGYBACK 100 MG IV ×3 (05:40→21:32)
[2020-10-05 06:22] LABS: MANUAL DIFF FLAG NO
[2020-10-05] MEDS: Pantoprazole Sodium 40 MG/10 ML VIAL IVPUSH (06:35)
[2020-10-05 06:49] LABS: Anion Gap 9 (12-20); Blood Urea Nitrogen 4 mg/dL (9-16); Calcium 8.3 mg/dL (8.4-10.2); Carbon Dioxide 27 mmol/L (22-29); Chloride 107 mmol/L (96-108); Creatinine Clr Calc Pharmacy 64.9; Estimated Glomerular Filt Rate > 60; Glucose Random 104 mg/dL (60-115); Potassium 3.8 mmol/L (3.3-5.1); Sodium 139 mmol/L (135-145)
[2020-10-05 06:57] LABS: Basophils Percent Auto 0.6 % (0-2); Eosinophils Absolute Auto 0.1 X10*3/uL (0.0-0.4); Eosinophils Percent Auto 1.9 % (0-4); Hematocrit 33.8 % (37-47); Hemoglobin 10.9 g/dl (12.0-16.0); Imm Gran Abs Auto 0.02 X10*3/uL (0.00-0.03); Imm Gran Pct Auto 0.3 % (0.0-0.4); Lymphocytes Absolute Auto 2.1 X10*3/uL (1.2-4.9); Lymphocytes Percent Auto 30.6 % (20-40); Mean Corpuscular HGB Conc 32.2 g/dl (31.0-35.0); Mean Corpuscular Hemoglobin 32.9 pg (27.0-33.0); Mean Corpuscular Volume 102.1 fL (80-98); Mean Platelet Volume 8.9 fL (9.4-12.3); Monocytes Percent Auto 14.6 % (2-11); Neutrophils Absolute Auto 3.5 X10*3/uL (2.0-8.3); Platelet Count 199 X10*3/uL (160-400); Red Blood Count 3.31 X10*6/uL (4.20-5.50); White Blood Count 6.8 X10*3/uL (4.8-10.8)
--- NOTE | 2020-10-05 08:45 | P.PNIM_ITS ---
Subjective Subjective Date of Service: 10/05/20 Interval History: Seen in f/u acute diverticulitis, rectal bleed. Pain is better this morning. No blood bowel movment Review of Systems Gen: no fever Resp: no sob, no cough CV: no chest, no AYON, no leg edema GI: No n/v, some abd pain Neuro: No confusion Physical Exam Vital Signs: Vital Signs: Last Vital Signs Temp 98.1 F 10/05/20 02:41 Pulse 52 10/05/20 06:45 Resp 18 10/05/20 06:45 BP 121/67 10/05/20 06:45 Pulse Ox 97 10/05/20 06:45 Body Mass Index 23.6 Const: Other: General: AO X 3, no acute distress Resp: CTA bilateral CVS: S1,S2,RRR GI: +BS, mild mid abdomen tenderness, no distention Skin: No rash Neuro: motor grossly intact Psych: appropriate affect Objective Data Current Medications Generic Name Dose Route Start Last Admin Trade Name Freq PRN Reason Stop Dose Admin Acetaminophen 650 mg 10/05/20 02:46 10/05/20 02:56 Acetaminophen 325 Mg Tablet PO 650 mg Q6H PRN Administration Breakthrough Pain Dextrose/Sodium Chloride 1,000 mls @ 100 mls/hr 10/04/20 21:15 10/04/20 22:38 D51/2ns IVCONT 100 mls/hr .Q10H SY Administration Ceftriaxone Sodium 1 gm/ 50 mls @ 100 mls/hr 10/05/20 21:00 Sodium Chloride IV Q24H SY Metronidazole 500 mg in 100 mls @ 100 mls/hr 10/05/20 05:00 10/05/20 06:35 Flagyl IV Infused Q8H SY Infusion Pantoprazole Sodium 40 mg 10/05/20 06:30 10/05/20 06:35 Pantoprazole Sodium 40 Mg/10 Ml Vial IVPUSH 40 mg DAILY@0630 SY Administration Sodium Chloride 3 ml 10/05/20 00:00 10/05/20 02:58 0.9 % Sodium Chloride Flush 3 Ml Syringe IVFLUSH Not Given QSHIFT [facility] Labs CBC & Chem 7: 10/05/20 06:12 10/05/20 06:12 Microbiology Microbiology Results: Microbiology 10/04/20 17:15 Urine Catheterized - Straight Catheter Urine Culture - Preliminary No growth to date. Assessment and Plan (1) Diverticulitis: Status: Acute Assessment and Plan: 54-year-old female with a past medical history of GERD, celiac disease, IBS, history of pancreatitis presented to the hospital with a chief complaint of nausea vomiting abdominal pain and diarrhea. Also complained of bright red blood per rectum. Acute diverticulitis uncomplcated diverticulitis, no fever, normal WBC/ Continue Ceftriaxone and Flagy Keep NPO for now GI eval pending, Bright red blood per rectum, acut blood loss anemia--possibley from diverticultis, Hgb down from 13 to 10 today Monitor H/H, GI evel pending compression device for dvt proph
[2020-10-05] MEDS: Dextrose 5 % and 0.45 % NaCl 1,000 ML 100 ML IVCONT ×2 (09:15→14:47)
--- NOTE | 2020-10-05 09:58 | PC.NURSE ---
Pt acknowledges NPO status. Awaiting GI consult and bed assignment
--- NOTE | 2020-10-05 10:59 | MHC.CM.PN ---
Met with patient in regards to discharge planning. Patient lives with her boyfriend, ambulates independently and had no services prior to coming to the hospital. No services anticipated to be needed because patient is not homebound. PCP verified. HCP completed, signed and witnessed. Original given to patient. Copy placed in chart. Anticipate patient's sig other, Artie will transport her home when medically stable. Continue to monitor for d/c needs.
--- NOTE | 2020-10-05 11:07 | P.CNGI_ITS ---
History of Present Illness Data of Consult Service Date: 10/05/20 Requesting physician: Patrice Solis Primary Care Provider: Carlyn Azul MD HPI 54 YF seen at [facility] on 10/04/20 with abd pain and rectal bleedin-year-old female with past medical history of pancreatitis, celiac disease, GERD, IBS presented to the emergency department with diffuse abdominal pain, nausea, vomiting, diarrhea, intermittent constipation, and bright red blood per rectum with large clots for several days. States that she ate soy products on the , and feels that she could be having a reaction or gastroenteritis. She is describing 10/10 rectal pain, feels more like a pressure. This pressure is unrelieved with bowel movements. She denies chest pain or pressure, palpitations abdominal distention, dysuria, hematuria, fevers, chills, and edema. MD elicited complaint: abdominal pain Pertinent past history: constipation and gastrointestinal bleeding Onset (ago): week(s) (1) Pain Consistency: constant Location: diffuse Severity: severe Pain scale (0-10): 10 Quality: cramping, stabbing and aching Exacerbating factors: eating and bowel movement Relieving factors: nothing Associated symptoms: nausea, vomiting and diarrhea Patient has been followed by Jackeline Putnam NP since February 2018 for IBS and celiac disease Pt admits to taking chocolate with sore I a week ago and broke out in hives and took Benadryl. 09/29 patient had 2 episodes of rectal bleeding and passed a dark clot with mucus. She started having lower abdominal pain followed by diarrhea, nausea with regurgitation. Pt reports a low-grade temperature of 99.2 degrees 99.7 Her wt fluctuates. 10/04/[address] SCAN SHOWED: There are abnormalities most consistent with acute sigmoid diverticulitis without definite drainable abscess or bowel obstruction. There is no pneumatosis or pneumoperitoneum. Previous anorectal junction surgery. Review of Systems Constitutional: Constitutional: Denies fever(s), Denies headache(s) and Denies weight loss Eyes: Eyes: Denies eye discharge and Denies irritation ENT: Reports Normal hearing present, Denies dysphagia, Denies dizziness and Denies headache(s) Cardiovascular: Cardiovascular: Denies chest pain, Denies leg edema and Denies dyspnea on exertion Respiratory: Respiratory: Denies cough, Denies dyspnea on exertion and Denies wheezing Gastrointestinal: Gastrointestinal: Reports abdominal pain, Reports hematochezia, Reports change in bowel habits, Denies dysphagia, Denies heartburn, Reports nausea and Reports vomiting Genitourinary: Genitourinary: Denies difficulty voiding and Denies dysuria Musculoskeletal: Musculoskeletal: Denies back pain and Denies arthralgias Integumentary/Breasts: Skin/Breast: Denies pruritus, Denies rash and Denies jaundice Neurologic: Reports Normal hearing present, Denies Abnormal speech present, Denies dizziness, Denies headache(s) and Denies seizure-like activity Psychiatric: Psychiatric: Denies anxiety, Denies depression and Denies panic attacks Endocrine: Endocrine: Denies cold intolerance, Denies flushing and Denies heat intolerance Hematologic/Lymphatic: Hematologic/Lymphatic: Denies easy bleeding and Denies easy bruising Allergic/Immunologic: Allergic/Immunologic: Denies wheezing PMFSH Past Medical History Medical History (Updated 01/21/21 @ 09:28 by SCOTTIE Urena) Annual physical exam Bipolar 1 disorder Celiac disease Diverticulosis Environmental allergies GERD (gastroesophageal reflux disease) IBS (irritable bowel syndrome) Mammogram declined Vitamin D deficiency Family History Family History Mother Stomach problems Father Heart problem Daughter Diabetes Other Bipolar 1 disorder Surgical History Surgical History History of carpal tunnel release (~2019) History of esophagogastroduodenoscopy (EGD) History of tonsillectomy Hx of colonoscopy Hx of hemorrhoidectomy Social History Social History Household Members: Significant Other Housing: House Do you presently have visiting nurse or other home services: No Alcohol intake: never Substance Use Type: Marijuana service: No Current occupational status: disabled Meds Allergies Allergy/AdvReac Type Severity Reaction Status Date / Time lamotrigine [LAMOTRIGINE] Allergy Severe Rash Verified 01/21/21 09:13 sulfamethoxazole Allergy Mild ITCHY Verified 01/21/21 09:13 [From ] trimethoprim [From ] Allergy Mild ITCHY Verified 01/21/21 09:13 Septra Allergy Unknown itchy Verified 01/21/21 09:13 Sulfa (Sulfonamide Allergy Unknown itchy Verified 01/21/21 09:13 Antibiotics) Active Medications: Current Medications Generic Name Dose Route Start Last Admin Trade Name Dustin PRN Reason Stop Dose Admin Acetaminophen 650 mg 10/05/20 02:46 10/05/20 09:18 Acetaminophen 325 Mg Tablet PO 650 mg Q6H PRN Administration Breakthrough Pain Dextrose/Sodium Chloride 1,000 mls @ 100 mls/hr 10/04/20 21:15 10/05/20 09:15 D51/2ns IVCONT 100 mls/hr .Q10H SY Administration Ceftriaxone Sodium 1 gm/ 50 mls @ 100 mls/hr 10/05/20 21:00 Sodium Chloride IV Q24H SY Metronidazole 500 mg in 100 mls @ 100 mls/hr 10/05/20 05:00 10/05/20 06:35 Flagyl IV Infused Q8H SY Infusion Morphine Sulfate 2 mg 10/05/20 10:09 Morphine Sulfate 2 Mg/Ml Cartridge IVPUSH Q4H PRN Pain, Severe (Pain Scale 7-10) Pantoprazole Sodium 40 mg 10/05/20 06:30 10/05/20 06:35 Pantoprazole Sodium 40 Mg/10 Ml Vial IVPUSH 40 mg DAILY@0630 SY Administration Sodium Chloride 3 ml 10/05/20 00:00 10/05/20 09:12 0.9 % Sodium Chloride Flush 3 Ml Syringe IVFLUSH Not Given QSHIFT [facility] Home Medications Medication Instructions Recorded Confirmed Last Taken Type buspirone 30 mg tablet 30 mg PO BID 09/30/20 10/04/20 10/04/20 09:00 History carbamazepine 200 mg tablet 200 mg PO BID 09/30/20 10/04/20 10/04/20 09:00 History dicyclomine 10 mg capsule 10 mg PO BID PRN 10/04/20 10/04/20 Unknown History sennosides 8.6 mg tablet (Senna 2 tab PO BEDTIME PRN 10/04/20 10/04/20 Unknown History Laxative) docusate sodium 100 mg capsule 100 mg PO BID 01/21/21 Unknown History Physical Exam Vital Signs: Vital Signs: Last Vital Signs Temp 98.0 F 10/05/20 09:52 Pulse 52 10/05/20 09:52 Resp 18 10/05/20 09:52 BP 142/76 H 10/05/20 09:52 Pulse Ox 99 10/05/20 09:52 Body Mass Index 23.6 Const: General: healthy appearing and no acute distress Nutritional Appearance: average body habitus Orientation/consciousness: patient oriented x3 Limitations: no limitations HENMT: Head: Yes normal to inspection Ears: hearing grossly normal bilaterally Mouth: Normal oral and palatal mucosa present Eyes: Sclerae: sclerae normal Pupils: Equal, round and reactive pupils present Neck: Neck: Yes normal visual inspection Chest: Chest palpation & inspection: normal inspection of the chest Resp: Effort & Inspection: normal respiratory effort Auscultation: clear to auscultation bilaterally Cardio: Palpation: normal PMI Rate: regular rate Rhythm: regular rhythm Heart sounds: S1 normal heart sound present, S2 normal heart sound present and no murmurs GI: Palpation (GI): Soft to palpation, Tenderness to palpation present (GI) (Moderate generalized tenderness) and No hepatosplenomegaly present Auscultation: normal bowel sounds Rectal Exam - Female: deferred Skin: General skin exam: no rashes or lesions noted Neuro: General: patient oriented x3, gait normal and moves all extremities Cranial nerves: Yes Equal, round and reactive pupils present and Yes Normal hearing present Speech: No Abnormal speech present Psych: Appearance: grossly normal Mental Status: mental status grossly normal Results Labs CBC & Chem 7: 10/06/20 05:03 10/05/20 06:12 Labs: Short CBC 10/04/20 10/05/20 Range/Units 17:14 06:12 WBC 11.9 H 6.8 (4.8-10.8) X10*3/uL Hgb 13.4 10.9 L (12.0-16.0) g/dl Hct 39.4 33.8 L (37-47) % Plt Count 246 199 (160-400) X10*3/uL BMP 10/04/20 10/05/20 17:14 06:12 Sodium 136 139 Potassium 4.2 3.8 Chloride 101 107 Carbon Dioxide 26 27 BUN 8 L 4 L Creatinine 0.79 0.73 Calcium 9.5 8.3 L D Liver Function 10/04/20 Range/Units 17:14 Total Bilirubin 0.6 (0.0-1.0) mg/dL Direct Bilirubin 0.3 (0.0-0.5) mg/dL AST 21 (5-31) U/L ALT 17 (0-31) U/L Alkaline Phosphatase 92 (39-117) U/L Albumin 4.6 (3.5-5.0) g/dL Urine 10/04/20 Range/Units 17:15 Urine Color YELLOW Urine Appearance CLEAR Urine pH 7.0 (5.0-8.0) Ur Specific [place] 1.015 (1.005-1.025) Urine Protein NEG (NEG-TRACE) MG/DL Urine Glucose (UA) NEG (NEG) MG/DL Microbiology Microbiology Results: Microbiology 10/04/20 17:15 Urine Catheterized - Straight Catheter Urine Culture - Preliminary No growth to date. Assessment and Plan (1) Nausea and vomiting: Status: Resolved (2) Celiac disease: Status: Acute (3) GERD (gastroesophageal reflux disease): Status: Acute (4) IBS (irritable bowel syndrome): Status: Acute (5) Abnormal CT scan, colon: Status: Deleted 54 YF with bipolar disorder, hyperlipidemia, bilateral carpal tunnel s yndrome, anxiety disorder, hx of pancreatitis, IBS with diarrhea and constipation and celiac disease. Patient admitted with abdominal pain and 2 episodes of hematochezia. Abdominal CT scan showed sigmoid diverticulitis without abscess. 11/2018 colonoscopy showed severe diverticulosis involving the left colon with luminal narrowing. No polyps were detected random biopsies obtained from the colon and TI were normal RECOMMENDATIONS: 1. Continue clear liquid diet. 2. IV ceftriaxone and metronidazole for diverticulitis.
--- NOTE | 2020-10-05 11:14 | P.CONGS_ITS ---
History of Present Illness Consult details Consult date: 10/05/20 Narrative: [age] year female referred for acute diverticulitis. She came to the emergency room yesterday because of diffuse abdominal pain. She has history of celiac disease and IBS, and about a week ago she says that she might have taken food with gluten. She says she had what she described as some sort of allergic reaction had some episodes of crampy abdominal pain. This was diffuse. She says about 3 days ago, she noted blood with her bowel movements, bright red. She has not noticed this since then. She also describes having pain on her buttocks at that time. She continue of some crampy episode a abdominal pain so she came to the emergency room yesterday. Her CAT scan showed some thickening of the sigmoid colon suggestive of acute diverticulitis. Her pain currently is mild. She denies any nausea or vomiting. She denies any fever. She says she had a colonoscopy about 2-3 years ago and says she is supposed to have a colonoscopy every 5 years. Review of Systems Constitutional: Constitutional: Denies chills and Denies fever(s) Cardiovascular: Cardiovascular: Denies chest pain, Denies dyspnea and Denies dyspnea on exertion Respiratory: Respiratory: Denies cough, Denies dyspnea and Denies dyspnea on exertion Gastrointestinal: Gastrointestinal: Denies hematochezia and Denies change in bowel habits Genitourinary: Genitourinary: Denies hematuria Musculoskeletal: Musculoskeletal: Denies back pain and Denies limited range of motion Neurologic: Denies focal weakness and Denies convulsions Psychiatric: Psychiatric: Reports anxiety, Denies depression and Reports mood swings PMFSH Past Medical History Medical History Annual physical exam Bipolar 1 disorder Celiac disease Environmental allergies IBS (irritable bowel syndrome) Mammogram declined Vitamin D deficiency Family History Family History Mother Stomach problems Father Heart problem Daughter Diabetes Other Bipolar 1 disorder Surgical History Surgical History History of carpal tunnel release (~2019) History of esophagogastroduodenoscopy (EGD) History of tonsillectomy Hx of colonoscopy Hx of hemorrhoidectomy Social History Social History Alcohol intake: never Smoking Status: Never smoker Tobacco Type: E-Cigarette Use of substances other than those prescribed or required for medical reasons: No Substance Use Type: Marijuana Advance Directives: No Advance Directives Information Provided: No Patient : No service: No Current occupational status: disabled Meds Allergies Allergy/AdvReac Type Severity Reaction Status Date / Time lamotrigine [LAMOTRIGINE] Allergy Severe Rash Verified 09/30/20 13:06 sulfamethoxazole Allergy Mild ITCHY Verified 09/30/20 13:06 [From FEBRA] trimethoprim [From FEBRA] Allergy Mild ITCHY Verified 09/30/20 13:06 Septra Allergy Unknown itchy Verified 09/30/20 13:06 Sulfa (Sulfonamide Allergy Unknown itchy Verified 09/30/20 13:06 Antibiotics) Active Medications: Current Medications Generic Name Dose Route Start Last Admin Trade Name Freq PRN Reason Stop Dose Admin Acetaminophen 650 mg 10/05/20 02:46 10/05/20 09:18 Acetaminophen 325 Mg Tablet PO 650 mg Q6H PRN Administration Breakthrough Pain Dextrose/Sodium Chloride 1,000 mls @ 100 mls/hr 10/04/20 21:15 10/05/20 09:15 D51/2ns IVCONT 100 mls/hr .Q10H SY Administration Ceftriaxone Sodium 1 gm/ 50 mls @ 100 mls/hr 10/05/20 21:00 Sodium Chloride IV Q24H SY Metronidazole 500 mg in 100 mls @ 100 mls/hr 10/05/20 05:00 10/05/20 06:35 Flagyl IV Infused Q8H SY Infusion Morphine Sulfate 2 mg 10/05/20 10:09 Morphine Sulfate 2 Mg/Ml Cartridge IVPUSH Q4H PRN Pain, Severe (Pain Scale 7-10) Pantoprazole Sodium 40 mg 10/05/20 06:30 10/05/20 06:35 Pantoprazole Sodium 40 Mg/10 Ml Vial IVPUSH 40 mg DAILY@0630 SY Administration Sodium Chloride 3 ml 10/05/20 00:00 10/05/20 09:12 0.9 % Sodium Chloride Flush 3 Ml Syringe IVFLUSH Not Given QSHIFT [facility] [place] Home Medications Medication Instructions Recorded Confirmed Last Taken Type buspirone 30 mg tablet 30 mg PO BID 09/30/20 10/04/20 10/04/20 09:00 History carbamazepine 200 mg tablet 200 mg PO BID 09/30/20 10/04/20 10/04/20 09:00 History dicyclomine [Bentyl] 10 mg PO BID PRN 10/04/20 10/04/20 Unknown History sennosides [Senna Laxative] 2 tab PO BEDTIME PRN 10/04/20 10/04/20 Unknown History Physical Exam Vital Signs: Vital Signs: Last Vital Signs Temp 98.0 F 10/05/20 09:52 Pulse 52 10/05/20 09:52 Resp 18 10/05/20 09:52 BP 142/76 H 10/05/20 09:52 Pulse Ox 99 10/05/20 09:52 Body Mass Index 23.6 Const: General: comfortable and no acute distress Orientation/consciousness: patient oriented x3 Neck: Neck: Yes no lymphadenopathy Resp: Auscultation: clear to auscultation bilaterally Cardio: Rhythm: regular rhythm GI: Other: Mild tenderness diffusely without guarding or rebound Palpation (GI): Soft to palpation, nontender and no guarding Neuro: General: patient oriented x3 Results Labs Result diagrams: 10/05/20 06:12 10/05/20 06:12 Labs: Abnormal lab results 10/04/20 10/04/20 10/04/20 Range/Units 17:14 17:14 17:15 WBC 11.9 H (4.8-10.8) X10*3/uL RBC 4.01 L (4.20-5.50) X10*6/uL Hgb (12.0-16.0) g/dl Hct (37-47) % MCV 98.3 H (80-98) fL MCH 33.4 H (27.0-33.0) pg MPV 8.8 L (9.4-12.3) fL Lymph % (Auto) 12.5 L (20-40) % Frontier % (Auto) 15.8 H (2-11) % Frontier # (Auto) 1.9 H (0.1-1.2) X10*3/uL Abs Immat Gran (auto) 0.04 H (0.00-0.03) X10*3/uL Anion Gap (12-20) BUN 8 L (9-16) mg/dL Calcium (8.4-10.2) mg/dL Ur Leukocyte Esterase TRACE H (NEG) Urine WBC 5-9 H (0-4) /HPF 10/05/20 10/05/20 Range/Units 06:12 06:12 WBC (4.8-10.8) X10*3/uL RBC 3.31 L (4.20-5.50) X10*6/uL Hgb 10.9 L (12.0-16.0) g/dl Hct 33.8 L (37-47) % MCV 102.1 H (80-98) fL MCH (27.0-33.0) pg MPV 8.9 L (9.4-12.3) fL Lymph % (Auto) (20-40) % Frontier % (Auto) 14.6 H (2-11) % Frontier # (Auto) (0.1-1.2) X10*3/uL Abs Immat Gran (auto) (0.00-0.03) X10*3/uL Anion Gap 9 L (12-20) BUN 4 L (9-16) mg/dL Calcium 8.3 L D (8.4-10.2) mg/dL Ur Leukocyte Esterase (NEG) Urine WBC (0-4) /HPF Short CBC 10/04/20 10/05/20 Range/Units 17:14 06:12 WBC 11.9 H 6.8 (4.8-10.8) X10*3/uL Hgb 13.4 10.9 L (12.0-16.0) g/dl Hct 39.4 33.8 L (37-47) % Plt Count 246 199 (160-400) X10*3/uL BMP 10/04/20 10/05/20 17:14 06:12 Sodium 136 139 Potassium 4.2 3.8 Chloride 101 107 Carbon Dioxide 26 27 BUN 8 L 4 L Creatinine 0.79 0.73 Calcium 9.5 8.3 L D Liver Function 10/04/20 Range/Units 17:14 Total Bilirubin 0.6 (0.0-1.0) mg/dL Direct Bilirubin 0.3 (0.0-0.5) mg/dL AST 21 (5-31) U/L ALT 17 (0-31) U/L Alkaline Phosphatase 92 (39-117) U/L Albumin 4.6 (3.5-5.0) g/dL Urine 10/04/20 Range/Units 17:15 Urine Color YELLOW Urine Appearance CLEAR Urine pH 7.0 (5.0-8.0) Ur Specific [place] 1.015 (1.005-1.025) Urine Protein NEG (NEG-TRACE) MG/DL Urine Glucose (UA) NEG (NEG) MG/DL All other labs normal. Imaging Abdomen CT scan report/results: report reviewed and image reviewed CT scan - pelvis: report reviewed and image reviewed Assessment and Plan (1) Abnormal CT scan, colon: Status: Acute I have reviewed her CAT scan and this shows thickening of the wall of the sigmoid along with some pericolonic stranding is highly suggestive of acute diverticulitis. Review of her records show that she had a colonoscopy in [address] Gordon and this did reveal severe diverticulosis. She does not have any abscess that needs to be drained at this point. I agree with IV antibiotic treatment and bowel rest for now. I explained to her that most of the time, diverticulitis resolves on its own and it is unlikely that she will require surgical intervention at this time. She also is a very benign exam. I will follow along while she is in the hospital.
[2020-10-05] MEDS: Morphine Sulfate 2 MG/ML CARTRIDGE IVPUSH (11:54)
--- NOTE | 2020-10-05 11:57 | PC.NURSE ---
Pt seen by I. Medicated for pain. Bed received and will call report tp inpatient rn
--- NOTE | 2020-10-05 12:52 | PC.NURSE ---
Report given to C SHAWN mae
--- NOTE | 2020-10-05 13:44 | PM.GICN ---
History of Present Illness Data of Consult Primary Care Provider: Carlyn Azul MD Review of Systems Review of Systems: Gen: no fever Resp: no sob, no cough CV: no chest, no AYON, no leg edema GI: No n/v, some abd pain Neuro: No confusion Yes all other systems are reviewed and are negative Constitutional: Constitutional: Denies chills, Denies fever(s), Denies headache(s) and Denies weight loss Eyes: Eyes: Denies eye discharge and Denies irritation ENT: Reports Normal hearing present, Denies dysphagia, Denies dizziness and Denies headache(s) Cardiovascular: Cardiovascular: Denies chest pain, Denies leg edema, Denies dyspnea and Denies dyspnea on exertion Respiratory: Respiratory: Denies cough, Denies dyspnea, Denies dyspnea on exertion and Denies wheezing Gastrointestinal: Gastrointestinal: Reports abdominal pain, Denies hematochezia, Denies change in bowel habits, Denies dysphagia, Denies heartburn, Reports nausea and Reports vomiting Musculoskeletal: Musculoskeletal: Denies back pain, Denies arthralgias and Denies limited range of motion Integumentary/Breasts: Skin/Breast: Denies pruritus, Denies rash and Denies jaundice Neurologic: Reports Normal hearing present, Denies Abnormal speech present, Denies dizziness, Denies headache(s), Denies focal weakness, Denies convulsions and Denies seizure-like activity Psychiatric: Psychiatric: Reports anxiety, Denies depression, Reports mood swings and Denies panic attacks Endocrine: Endocrine: Denies cold intolerance, Denies flushing and Denies heat intolerance Hematologic/Lymphatic: Hematologic/Lymphatic: Denies easy bleeding and Denies easy bruising Allergic/Immunologic: Allergic/Immunologic: Denies wheezing PMFSH Past Medical History Medical History Annual physical exam Bipolar 1 disorder Celiac disease Environmental allergies IBS (irritable bowel syndrome) Mammogram declined Vitamin D deficiency Family History Family History Mother Stomach problems Father Heart problem Daughter Diabetes Other Bipolar 1 disorder Surgical History Surgical History History of carpal tunnel release (~2019) History of esophagogastroduodenoscopy (EGD) History of tonsillectomy Hx of colonoscopy Hx of hemorrhoidectomy Social History Social History Alcohol intake: never Smoking Status: Never smoker Tobacco Type: E-Cigarette Substance Use Type: Marijuana service: No Current occupational status: disabled Meds Allergies Allergy/AdvReac Type Severity Reaction Status Date / Time lamotrigine [LAMOTRIGINE] Allergy Severe Rash Verified 09/30/20 13:06 sulfamethoxazole Allergy Mild ITCHY Verified 09/30/20 13:06 [From ] trimethoprim [From FEBRA] Allergy Mild ITCHY Verified 09/30/20 13:06 Septra Allergy Unknown itchy Verified 09/30/20 13:06 Sulfa (Sulfonamide Allergy Unknown itchy Verified 09/30/20 13:06 Antibiotics) Active Medications: Current Medications Generic Name Dose Route Start Last Admin Trade Name Freq PRN Reason Stop Dose Admin Acetaminophen 650 mg 10/05/20 02:46 10/05/20 09:18 Acetaminophen 325 Mg Tablet PO 650 mg Q6H PRN Administration Breakthrough Pain Dextrose/Sodium Chloride 1,000 mls @ 100 mls/hr 10/04/20 21:15 10/05/20 09:15 D51/2ns IVCONT 100 mls/hr .Q10H SY Administration Ceftriaxone Sodium 1 gm/ 50 mls @ 100 mls/hr 10/05/20 21:00 Sodium Chloride IV Q24H SY Metronidazole 500 mg in 100 mls @ 100 mls/hr 10/05/20 05:00 10/05/20 06:35 Flagyl IV Infused Q8H SY Infusion Morphine Sulfate 2 mg 10/05/20 10:09 10/05/20 11:54 Morphine Sulfate 2 Mg/Ml Cartridge IVPUSH 2 mg Q4H PRN Administration Pain, Severe (Pain Scale 7-10) Pantoprazole Sodium 40 mg 10/05/20 06:30 10/05/20 06:35 Pantoprazole Sodium 40 Mg/10 Ml Vial IVPUSH 40 mg DAILY@0630 SY Administration Sodium Chloride 3 ml 10/05/20 00:00 10/05/20 09:12 0.9 % Sodium Chloride Flush 3 Ml Syringe IVFLUSH Not Given QSHIFT [facility] Home Medications Medication Instructions Recorded Confirmed Last Taken Type buspirone 30 mg tablet 30 mg PO BID 09/30/20 10/04/20 10/04/20 09:00 History carbamazepine 200 mg tablet 200 mg PO BID 09/30/20 10/04/20 10/04/20 09:00 History dicyclomine [Bentyl] 10 mg PO BID PRN 10/04/20 10/04/20 Unknown History sennosides [Senna Laxative] 2 tab PO BEDTIME PRN 10/04/20 10/04/20 Unknown History Physical Exam Vital Signs: Vital Signs: Last Vital Signs Temp 98.0 F 10/05/20 09:52 Pulse 52 10/05/20 09:52 Resp 18 10/05/20 09:52 BP 142/76 H 10/05/20 09:52 Pulse Ox 99 10/05/20 09:52 Body Mass Index 23.6 Const: Other: General: AO X 3, no acute distress Resp: CTA bilateral CVS: S1,S2,RRR GI: +BS, mild mid abdomen tenderness, no distention Skin: No rash Neuro: motor grossly intact Psych: appropriate affect General: comfortable and no acute distress Orientation/consciousness: patient oriented x3 Neck: Neck: Yes no lymphadenopathy Resp: Auscultation: clear to auscultation bilaterally Cardio: Rhythm: regular rhythm GI: Other: Mild tenderness diffusely without guarding or rebound Palpation (GI): Soft to palpation, nontender and no guarding Neuro: General: patient oriented x3 Cranial nerves: Yes Normal hearing present Speech: No Abnormal speech present Results Labs CBC & Chem 7: 10/05/20 06:12 10/05/20 06:12 Labs: Short CBC 10/04/20 10/05/20 Range/Units 17:14 06:12 WBC 11.9 H 6.8 (4.8-10.8) X10*3/uL Hgb 13.4 10.9 L (12.0-16.0) g/dl Hct 39.4 33.8 L (37-47) % Plt Count 246 199 (160-400) X10*3/uL BMP 10/04/20 10/05/20 17:14 06:12 Sodium 136 139 Potassium 4.2 3.8 Chloride 101 107 Carbon Dioxide 26 27 BUN 8 L 4 L Creatinine 0.79 0.73 Calcium 9.5 8.3 L D Liver Function 10/04/20 Range/Units 17:14 Total Bilirubin 0.6 (0.0-1.0) mg/dL Direct Bilirubin 0.3 (0.0-0.5) mg/dL AST 21 (5-31) U/L ALT 17 (0-31) U/L Alkaline Phosphatase 92 (39-117) U/L Albumin 4.6 (3.5-5.0) g/dL Urine 10/04/20 Range/Units 17:15 Urine Color YELLOW Urine Appearance CLEAR Urine pH 7.0 (5.0-8.0) Ur Specific [place] 1.015 (1.005-1.025) Urine Protein NEG (NEG-TRACE) MG/DL Urine Glucose (UA) NEG (NEG) MG/DL Microbiology Microbiology Results: Microbiology 10/04/20 17:15 Urine Catheterized - Straight Catheter Urine Culture - Preliminary No growth to date.
[2020-10-05] MEDS: carBAMazepine 200 MG TABLET PO (20:41)
[2020-10-05] MEDS: busPIRone HCl 10 MG TABLET 30 MG PO (20:42)
[2020-10-05] MEDS: cefTRIAXone sodium 1 GM in 0.9 % Sodium Chloride 50 ML IV (20:57)
[2020-10-05] MEDS: 0.9 % Sodium Chloride Flush 3 ML SYRINGE IVFLUSH (20:57)
[2020-10-06] MEDS: Dextrose 5 % and 0.45 % NaCl 1,000 ML 100 ML IVCONT ×2 (01:51→12:08)
[2020-10-06 03:38] VITALS: BP 133/72; PULSE 67; RESP 18; TEMP 36.2; O2SAT 99
[2020-10-06] MEDS: Pantoprazole Sodium 40 MG/10 ML VIAL IVPUSH (05:26)
[2020-10-06] MEDS: metroNIDAZOLE/NS 500 MG/100 ML PIGGYBACK 100 MG IV ×2 (05:30→13:40)
[2020-10-06 05:51] LABS: Hematocrit 34.9 % (37-47); Hemoglobin 11.4 g/dl (12.0-16.0); Mean Corpuscular HGB Conc 32.7 g/dl (31.0-35.0); Mean Corpuscular Hemoglobin 32.6 pg (27.0-33.0); Mean Corpuscular Volume 99.7 fL (80-98); Platelet Count 213 X10*3/uL (160-400); Red Cell Distribution Width 11.5 % (11.0-16.0)
[2020-10-06 07:01] VITALS: BP 132/70; PULSE 71; RESP 18; TEMP 35.5; O2SAT 98
[2020-10-06] MEDS: busPIRone HCl 10 MG TABLET 30 MG PO ×2 (08:48→20:27)
[2020-10-06] MEDS: 0.9 % Sodium Chloride Flush 3 ML SYRINGE IVFLUSH ×3 (08:49→20:29)
[2020-10-06] MEDS: carBAMazepine 200 MG TABLET PO ×2 (08:49→20:26)
[2020-10-06] MEDS: Acetaminophen 325 MG TABLET 650 MG PO (08:53)
[2020-10-06 10:54] VITALS: BP 144/70; PULSE 61; RESP 20; TEMP 36.6; O2SAT 99
--- NOTE | 2020-10-06 13:04 | PM.PNGS ---
Subjective Subjective Date of Service: 10/06/20 Interval history: Feels much better Denies any abdominal pain Had BMs this morning - nonbloody Tolerating liquids Physical Exam Vital Signs: Vital Signs: Last Vital Signs Temp 98 F 10/06/20 10:54 Pulse 61 10/06/20 10:54 Resp 20 10/06/20 10:54 BP 144/70 H 10/06/20 10:54 Pulse Ox 99 10/06/20 10:54 Body Mass Index 23.6 Laboratory Results - last 24 hr 10/06/20 05:03 WBC 5.0 RBC 3.50 L Hgb 11.4 L Hct 34.9 L MCV 99.7 H MCH 32.6 MCHC 32.7 RDW 11.5 Plt Count 213 MPV 9.0 L Absolute Nucleated RBC 0.000 Nucleated RBC % (a uto) 0.0 Const: Other: Ambulating General: comfortable and no acute distress Resp: Effort & Inspection: normal respiratory effort Cardio: Rate: regular rate GI: Inspection: No distended Palpation (GI): Soft to palpation, not firm, nontender and no guarding Progress Note: A&P Assessment and plan (1) Abnormal CT scan, colon: Status: Acute Assessment and Plan: Had thickening of the sigmoid colon suggestive of diverticulitis Currently much improved Denies any abdominal pain Has BMs, nonbloody Clinically looks well Continue antibiotics Okay to advance diet slowly as tolerated Fall Risk Details Current Medications: Current Medications Generic Name Dose Route Start Last Admin Trade Name Freq PRN Reason Stop Dose Admin Acetaminophen 650 mg 10/05/20 02:46 10/06/20 08:53 Acetaminophen 325 Mg Tablet PO 650 mg Q6H PRN Administration Breakthrough Pain Buspirone HCl 30 mg 10/05/20 21:00 10/06/20 08:48 Buspirone Hcl 10 Mg Tablet PO 30 mg BID SY Administration Carbamazepine 200 mg 10/05/20 21:00 10/06/20 08:49 Carbamazepine 200 Mg Tablet PO 200 mg BID SY Administration Dicyclomine HCl 10 mg 10/05/20 18:25 Dicyclomine Hcl 10 Mg Capsule PO BID PRN Abdominal Discomfort Dextrose/Sodium Chloride 1,000 mls @ 100 mls/hr 10/04/20 21:15 10/06/20 12:18 D51/2ns IVCONT 0 mls/hr .Q10H SY Infusion Ceftriaxone Sodium 1 gm/ 50 mls @ 100 mls/hr 10/05/20 21:00 10/05/20 21:33 Sodium Chloride IV Infused Q24H SY Infusion Metronidazole 500 mg in 100 mls @ 100 mls/hr 10/05/20 05:00 10/06/20 06:41 Flagyl IV Infused Q8H SY Infusion Morphine Sulfate 2 mg 10/05/20 10:09 10/05/20 11:54 Morphine Sulfate 2 Mg/Ml Cartridge IVPUSH 2 mg Q4H PRN Administration Pain, Severe (Pain Scale 7-10) Pantoprazole Sodium 40 mg 10/05/20 06:30 10/06/20 05:26 Pantoprazole Sodium 40 Mg/10 Ml Vial IVPUSH 40 mg DAILY@0630 SY Administration Senna 17.2 mg 10/05/20 18:25 Sennosides 8.6 Mg Tablet PO BEDTIME PRN constipation Sodium Chloride 3 ml 10/05/20 00:00 10/06/20 08:49 0.9 % Sodium Chloride Flush 3 Ml Syringe IVFLUSH 3 ml QSHIFT SY Administration Time Spent With Patient Time: Total time spent is greater than 50% in coordination of care (as documented) at patient's floor/unit and/or counseling patient: Time with patient: 15 - 24 minutes
--- NOTE | 2020-10-06 13:46 | P.PNIM_ITS ---
Subjective Subjective Date of Service: 10/06/20 Interval History: Seen in f/u acute diverticulitis, rectal bleed. Pain is better today, tolerating liquid diet, no further bleeding Review of Systems Gen: no fever Resp: no sob, no cough CV: no chest, no AYON, no leg edema GI: No n/v, some abd pain Neuro: No confusion Physical Exam Vital Signs: Vital Signs: Last Vital Signs Temp 98 F 10/06/20 10:54 Pulse 61 10/06/20 10:54 Resp 20 10/06/20 10:54 BP 144/70 H 10/06/20 10:54 Pulse Ox 99 10/06/20 10:54 Body Mass Index 23.6 Constitutional Awake and Alert, No apparent distress Neck Supple, No lymphadenopathy Cardiovascular RRR, No M/R/G, S1 S2, No S3 S4, No pedal edema Respiratory Lungs clear, No respiratory distress Gastrointestinal mild abdominal tenderness Skin No rash Neurological Alert & oriented x3 Psychological Appropriate affect Objective Data Current Medications Generic Name Dose Route Start Last Admin Trade Name Dylanq PRN Reason Stop Dose Admin Acetaminophen 650 mg 10/05/20 02:46 10/06/20 08:53 Acetaminophen 325 Mg Tablet PO 650 mg Q6H PRN Administration Breakthrough Pain Buspirone HCl 30 mg 10/05/20 21:00 10/06/20 08:48 Buspirone Hcl 10 Mg Tablet PO 30 mg BID SY Administration Carbamazepine 200 mg 10/05/20 21:00 10/06/20 08:49 Carbamazepine 200 Mg Tablet PO 200 mg BID SY Administration Dicyclomine HCl 10 mg 10/05/20 18:25 Dicyclomine Hcl 10 Mg Capsule PO BID PRN Abdominal Discomfort Dextrose/Sodium Chloride 1,000 mls @ 100 mls/hr 10/04/20 21:15 10/06/20 12:18 D51/2ns IVCONT 0 mls/hr .Q10H SY Infusion Ceftriaxone Sodium 1 gm/ 50 mls @ 100 mls/hr 10/05/20 21:00 10/05/20 21:33 Sodium Chloride IV Infused Q24H SY Infusion Metronidazole 500 mg in 100 mls @ 100 mls/hr 10/05/20 05:00 10/06/20 13:40 Flagyl IV 100 mls/hr Q8H SY Administration Morphine Sulfate 2 mg 10/05/20 10:09 10/05/20 11:54 Morphine Sulfate 2 Mg/Ml Cartridge IVPUSH 2 mg Q4H PRN Administration Pain, Severe (Pain Scale 7-10) Pantoprazole Sodium 40 mg 10/05/20 06:30 10/06/20 05:26 Pantoprazole Sodium 40 Mg/10 Ml Vial IVPUSH 40 mg DAILY@0630 [facility] Administration Senna 17.2 mg 10/05/20 18:25 Sennosides 8.6 Mg Tablet PO BEDTIME PRN constipation Sodium Chloride 3 ml 10/05/20 00:00 10/06/20 08:49 0.9 % Sodium Chloride Flush 3 Ml Syringe IVFLUSH 3 ml QSHIFT [facility] Administration Labs CBC & Chem 7: 10/06/20 05:03 10/05/20 06:12 Microbiology Microbiology Results: Microbiology 10/04/20 17:15 Urine Catheterized - Straight Catheter Urine Culture - Final 10/04/20 20:36 Blood - Venous Blood Culture - Preliminary No growth after 24 hours. 10/04/20 20:36 Blood - Venous Blood Culture - Preliminary No growth after 24 hours. Assessment and Plan (1) Diverticulitis: Status: Acute Assessment and Plan: 54-year-old female with a past medical history of GERD, celiac disease, IBS, history of pancreatitis presented to the hospital with a chief complaint of nausea vomiting abdominal pain and diarrhea. Also complained of bright red blood per rectum. Acute diverticulitis uncomplcated diverticulitis, no fever, normal WBC/ Continue Ceftriaxone and Flagy for one more day and change to PO tomorro Liquid diet to full liquid and Low residue later today GI recommends no intervention at this time. Bright red blood per rectum, acut blood loss anemia--possibly from diverticultis. H and h is stble. Monitor H/H compression device for dvt proph
[2020-10-06 15:41] VITALS: BP 138/79; PULSE 64; RESP 15; TEMP 36.7; O2SAT 100
[2020-10-06 19:52] VITALS: BP 140/90; PULSE 72; RESP 15; TEMP 36.1; O2SAT 99
[2020-10-06] MEDS: metroNIDAZOLE 500 MG TABLET PO (20:27)
[2020-10-06] MEDS: cefTRIAXone sodium 1 GM in 0.9 % Sodium Chloride 50 ML IV (20:28)
[2020-10-07] VITALS: BP 133/74; PULSE 65; RESP 18; TEMP 36.9; O2SAT 99
[2020-10-07 03:31] VITALS: BP 121/69; PULSE 71; RESP 70; TEMP 36.7; O2SAT 99
[2020-10-07] MEDS: Pantoprazole Sodium 40 MG/10 ML VIAL IVPUSH (05:54)
[2020-10-07 07:34] VITALS: BP 132/83; PULSE 79; RESP 20; TEMP 36.9; O2SAT 98
[2020-10-07] MEDS: busPIRone HCl 10 MG TABLET 30 MG PO (08:45)
[2020-10-07] MEDS: 0.9 % Sodium Chloride Flush 3 ML SYRINGE IVFLUSH (08:45)
[2020-10-07] MEDS: metroNIDAZOLE 500 MG TABLET PO (08:45)
[2020-10-07] MEDS: carBAMazepine 200 MG TABLET PO (08:45)
--- NOTE | 2020-10-07 09:28 | PM.DS ---
DS: Providers Provider Date of Service: 10/07/20 Date of admission: 10/04/20 21:13 Primary care physician: Carlyn Azul MD Consults: 10/04/20 21:13 Consult to Gastroenterology Routine Consulting Provider: Jace Gordon Reason for consultation: BRBPR Consult to General Surgery Routine Consulting Provider: Alejandrina Morgan Reason for consultation: Diverticulitis/BRBPR DS: Diagnosis Discharge Diagnosis (1) Diverticulitis: Status: Acute DS: Medications Discharge Medications Home Medications: Home Medications Medication Instructions Recorded Confirmed buspirone 30 mg tablet 30 mg PO BID 09/30/20 10/04/20 carbamazepine 200 mg tablet 200 mg PO BID 09/30/20 10/04/20 dicyclomine 10 mg PO BID PRN 10/04/20 10/04/20 sennosides [Senna Laxative] 2 tab PO BEDTIME PRN 10/04/20 10/04/20 Previous Rx's Medication Instructions Recorded cefuroxime axetil 500 mg PO Q12H #10 tab 10/07/20 metronidazole 500 mg PO TID #15 tab 10/07/20 oxycodone 5 mg PO Q6H PRN #10 tab 10/07/20 DS: Summary Hospital Course Hospital Course: 54 year female with IBS, celiac disease who presented with abdominal pain and rectal bleeding (See H and P) for details. CT showed acute sigmoid diverticulitis without definite drainable abscess or bowel obstruction.There is no pneumatosis or pneumoperitoneum. She had no increase in WBC. She was initiated on Abx with Cefriaxone and Falgyl. hemoglobin the next day dropped to 33 from 39, but no change the 3rd day. She was seen by GI (Dr. Gordon) and no intevention recommended at this time. She has improved on the antibiotics and has no pain at this point and she is tolerating regular diet. She will need to follow up with PCP and GI service at [facility] (Dr. Berry or Dr. Woodruff). Discharge plan discussed with her and she is comfortable with the plan. She will complete antibiotics course with oral Ceftin and Flagyle. Exam this morning is bening. Status at Discharge Functional status at discharge: independent ambulation Time Spent with Patient Time attestation: Total time spent providing and/or coordinating discharge services: Discharge coordination time: Greater than 30 minutes Physical Exam Vital Signs: Vital Signs: Last Vital Signs Temp 98.5 F 10/07/20 07:34 Pulse 79 10/07/20 07:34 Resp 20 10/07/20 07:34 BP 132/83 10/07/20 07:34 Pulse Ox 98 10/07/20 07:34 Body Mass Index 23.6 Constitutional Awake and Alert, No apparent distress Neck Supple, No lymphadenopathy Cardiovascular RRR, No M/R/G, S1 S2, No S3 S4, No pedal edema Respiratory Lungs clear, No respiratory distress Gastrointestinal Non tender, Non-distended Skin No rash Neurological Alert & oriented x3 Psychological Appropriate affect DS: Data Data Completed and Pending Labs on day of discharge: Preliminary micro results at discharge 10/04/20 20:36 Blood Culture - Preliminary Blood - Venous No growth after 48 hours. 10/04/20 20:36 Blood Culture - Preliminary Blood - Venous No growth after 48 hours. Discharge Plan Discharge Anticipated Discharge Date/Time: 10/07/20 09:04 Patient Disposition: Home, Self-Care Discharge Diagnosis: Acute diverticulitis, rectal bleed Referrals: Carlyn Azul MD [Primary Care Provider] - 1 Week Jace Gordon MD [Physician] - 1 Week (gib, acute diverticulitis ) Amari Melendez MD [Physician] - 1 Week Discharge Medications: New metronidazole 500 mg Tablet 500 mg PO TID Qty: 15 RF: 0 cefuroxime axetil 500 mg Tablet 500 mg PO Q12H Qty: 10 RF: 0 oxycodone 5 mg tablet 5 mg PO Q6H PRN (Reason: pain (scale score 7-10)) Qty: 10 RF: 0 Continued sennosides [Senna Laxative] 8.6 mg tablet 2 tab PO BEDTIME PRN (Reason: constipation) RF: 0 dicyclomine 10 mg Capsule 10 mg PO BID PRN (Reason: Abdominal Discomfort) RF: 0 buspirone 30 mg tablet 30 mg PO BID RF: 0 carbamazepine 200 mg tablet 200 mg PO BID RF: 0 Discharge Orders: Discharge Order (Routine); Ordered 10/07/20 Ordered By: Amari Melendez Diet: advance to usual diet Activity on Discharge: As tolerated Stand Alone Forms: Patient Portal Discharge page Care Plan Goals: Full recovery from acute diverticulitis Health Concerns: Acute diverticulitis with rectal bleeding Plan of Treatment: Take antibiotics (Cefuroxime and Flaygyl) as directed and follow up with your Doctor in 1week, also follow up with Dr. Berry or Evan in the GI service Assessment: Acute diverticulitis with rectal bleeding that is improving on antibiotics
--- NOTE | 2020-10-07 09:29 | MHC.CM.PN ---
Patient will be discharged home today no services. Sherley Alva will provide transportation. Patient and nurse are aware.
--- NOTE | 2020-10-07 10:57 | PM.PNGS ---
Subjective Subjective Date of Service: 10/07/20 Interval history: Feels ?great? Good BMs No abdominal pain Tolerating diet Physical Exam Vital Signs: Vital Signs: Last Vital Signs Temp 98.5 F 10/07/20 07:34 Pulse 79 10/07/20 07:34 Resp 20 10/07/20 07:34 BP 132/83 10/07/20 07:34 Pulse Ox 98 10/07/20 07:34 Body Mass Index 23.6 Const: General: healthy appearing, comfortable and no acute distress Resp: Effort & Inspection: normal respiratory effort Cardio: Rhythm: regular rhythm GI: Palpation (GI): Soft to palpation, not firm and nontender Progress Note: A&P Assessment and plan (1) Abnormal CT scan, colon: Status: Acute Assessment and Plan: Likely diverticulitis Clinically resolved Good GI function Recommended to patient to follow up with her developmental services worker Looks well Planned to be discharged today by hospitalist Fall Risk Details Current Medications: Current Medications Generic Name Dose Route Start Last Admin Trade Name Freq PRN Reason Stop Dose Admin Acetaminophen 650 mg 10/05/20 02:46 10/06/20 08:53 Acetaminophen 325 Mg Tablet PO 650 mg Q6H PRN Administration Breakthrough Pain Buspirone HCl 30 mg 10/05/20 21:00 10/07/20 08:45 Buspirone Hcl 10 Mg Tablet PO 30 mg BID SY Administration Carbamazepine 200 mg 10/05/20 21:00 10/07/20 08:45 Carbamazepine 200 Mg Tablet PO 200 mg BID SY Administration Cefuroxime Axetil 500 mg 10/07/20 08:00 10/07/20 08:45 Cefuroxime Axetil 500 Mg Tablet PO 500 mg Q12H SY Administration Dicyclomine HCl 10 mg 10/05/20 18:25 Dicyclomine Hcl 10 Mg Capsule PO BID PRN Abdominal Discomfort Metronidazole 500 mg 10/06/20 21:00 10/07/20 08:45 Metronidazole 500 Mg Tablet PO 500 mg TID SY Administration Morphine Sulfate 2 mg 10/05/20 10:09 10/05/20 11:54 Morphine Sulfate 2 Mg/Ml Cartridge IVPUSH 2 mg Q4H PRN Administration Pain, Severe (Pain Scale 7-10) Pantoprazole Sodium 40 mg 10/05/20 06:30 10/07/20 05:54 Pantoprazole Sodium 40 Mg/10 Ml Vial IVPUSH 40 mg DAILY@0630 SY Administration Senna 17.2 mg 10/05/20 18:25 Sennosides 8.6 Mg Tablet PO BEDTIME PRN constipation Sodium Chloride 3 ml 10/05/20 00:00 10/07/20 08:45 0.9 % Sodium Chloride Flush 3 Ml Syringe IVFLUSH 3 ml QSHIFT SY Administration Time Spent With Patient Time: Total time spent is greater than 50% in coordination of care (as documented) at patient's floor/unit and/or counseling patient: Time with patient: less than 15 minutes
== END 2020-10-07 11:00 | disposition home or self-care (01) | DRG 244 ==
LOC: HO.ED 21:24 → HO.EDOVER 21:25 → HO.IMC 10-05 11:38
PROVIDERS: Nurse Practitioner Family; Admitting Provider Hospitalist; Emergency Provider Emergency Medicine; PCP Internal Medicine; Visit Provider Internal Medicine
DX: K57.33 Diverticulitis of large intestine without perforation or abscess with bleeding (principal); D62 Acute posthemorrhagic anemia; K21.9 Gastro-esophageal reflux disease without esophagitis; K90.0 Celiac disease; E78.5 Hyperlipidemia, unspecified; Z20.822 Contact with and (suspected) exposure to COVID-19; Z88.2 Allergy status to sulfonamides; Z79.899 Other long term (current) drug therapy
CPT/HCPCS: 36415; 74177; 80048; 80053; 80076; 81001; 81003; 82272; 83605; 83690; 85025; 85027; 85610; 87040; 87086; 87635; 96365; 96368; 96375; 99285; 99291; J0696; J2270; J2405; Q9967

== ENCOUNTER → 2020-11-23 10:49 | Outpatient (BNVA) | payer OTHER, SELFPAY | PROVIDERS: PCP Internal Medicine; Referring Provider Internal Medicine; Visit Provider Nurse Practitioner | DX: K57.92 Diverticulitis of intestine, part unspecified, without perforation or abscess without bleeding (principal); K04.7 Periapical abscess without sinus; K85.91 Acute pancreatitis with uninfected necrosis, unspecified; R19.7 Diarrhea, unspecified | CPT/HCPCS: 99212 ==

== ENCOUNTER 2020-11-25 10:12 | Outpatient (REF) | payer OTHER, SELFPAY ==
[2020-11-25 10:52] LABS: Appearance Urine CLEAR; Color Urine YELLOW; Glucose Urine UA NEG (NEG); Leukocyte Esterase Urine NEG (NEG); Nitrite Urine NEG (NEG); Urine Blood NEG (NEG); Urine Ketones NEG (NEG); Urine Protein NEG (NEG-TRACE)
[2020-11-25 11:05] LABS: Hematocrit 41.8 % (37-47); Mean Corpuscular HGB Conc 33.5 g/dl (31.0-35.0); Mean Corpuscular Hemoglobin 33.3 pg (27.0-33.0); Mean Corpuscular Volume 99.3 fL (80-98); Mean Platelet Volume 8.8 fL (9.4-12.3); Platelet Count 239 X10*3/uL (160-400); Red Blood Count 4.21 X10*6/uL (4.20-5.50); Red Cell Distribution Width 12.2 % (11.0-16.0); White Blood Count 5.3 X10*3/uL (4.8-10.8)
[2020-11-25 11:37] LABS: Alanine Aminotransferase 18 U/L (0-31); Albumin Level 4.6 g/dL (3.5-5.0); Alkaline Phosphatase 82 U/L (39-117); Amylase 93 U/L (28-100); Anion Gap 12 (12-20); Aspartate Amino Transferase 26 U/L (5-31); Bilirubin Total 0.3 mg/dL (0.0-1.0); Blood Urea Nitrogen 10 mg/dL (9-16); C Reactive Protein 0.55 mg/dL (< or = 0.50); Calcium 9.7 mg/dL (8.4-10.2); Carbon Dioxide 27 mmol/L (22-29); Chloride 105 mmol/L (96-108); Cholesterol 245 mg/dL; Estimated Glomerular Filt Rate > 60; Glucose Fasting 91 mg/dL (60-99); HDL Cholesterol 123 mg/dL; LDL Cholesterol Calculated 113 mg/dl; Potassium 4.8 mmol/L (3.3-5.1); Sodium 139 mmol/L (135-145); Total Protein 6.7 g/dL (6.5-8.0); Triglycerides 48 mg/dL
[2020-11-25 11:42] LABS: Vitamin D 25-OH Total 38.6 ng/mL (>30)
[2020-11-25 12:02] LABS: Lipase 116 U/L (8-78)
== END 2020-11-25 10:13 | disposition home or self-care (01) ==
LOC: HO.LAB 10:12
PROVIDERS: Absent Provider Nurse Practitioner; PCP Internal Medicine; Visit Provider Internal Medicine
DX: Z00.00 Encounter for general adult medical examination without abnormal findings (principal); R19.7 Diarrhea, unspecified; K57.92 Diverticulitis of intestine, part unspecified, without perforation or abscess without bleeding; K85.91 Acute pancreatitis with uninfected necrosis, unspecified; E55.9 Vitamin D deficiency, unspecified
CPT/HCPCS: 36415; 80053; 80061; 81003; 82150; 82306; 83690; 85027; 86140

== ENCOUNTER 2020-11-27 12:21 | Outpatient (REF) | payer OTHER, SELFPAY ==
[2020-11-27 13:59] LABS: CDiff Gene PCR NEGATIVE (Negative)
== END 2020-11-27 12:22 | disposition home or self-care (01) ==
LOC: HO.LNP 12:21
PROVIDERS: Visit Provider Nurse Practitioner
DX: R19.7 Diarrhea, unspecified (principal)
CPT/HCPCS: 87045; 87046; 87493

== ENCOUNTER 2020-12-21 09:46 | Outpatient (REF) | payer OTHER, SELFPAY ==
[2020-12-21 12:47] LABS: Folate 5.9 ng/mL (> or = 4.0); Vitamin B12 322 pg/mL (200-900)
[2020-12-23 14:42] LABS: Gliadin Deamidated IgA Ab 8 Units; Gliadin Deamidated IgG Ab 4 Units
[2020-12-23 17:16] LABS: Transglutaminase Ab IgG 1 U/mL; Transglutaminase IgA 1 U/mL
== END 2020-12-21 09:47 | disposition home or self-care (01) ==
LOC: HO.LAB 09:46
PROVIDERS: PCP Internal Medicine; Referring Provider Internal Medicine; Visit Provider Nurse Practitioner
DX: K90.0 Celiac disease (principal); R19.7 Diarrhea, unspecified; K57.90 Diverticulosis of intestine, part unspecified, without perforation or abscess without bleeding; K85.91 Acute pancreatitis with uninfected necrosis, unspecified; K57.92 Diverticulitis of intestine, part unspecified, without perforation or abscess without bleeding; K58.9 Irritable bowel syndrome, unspecified; R10.13 Epigastric pain; B37.81 Candidal esophagitis; B37.0 Candidal stomatitis; B37.3 Candidiasis of vulva and vagina; R71.8 Other abnormality of red blood cells
CPT/HCPCS: 36415; 82607; 82746; 83516

== ENCOUNTER → 2021-01-21 09:13 | Outpatient (BNVA) | payer OTHER, SELFPAY | PROVIDERS: PCP Internal Medicine; Visit Provider Nurse Practitioner ==

== ENCOUNTER → 2021-08-03 14:25 | Outpatient (BNVA) | payer OTHER, SELFPAY | PROVIDERS: PCP Internal Medicine; Referring Provider Internal Medicine; Visit Provider Nurse Practitioner | DX: K58.9 Irritable bowel syndrome, unspecified (principal); K21.9 Gastro-esophageal reflux disease without esophagitis; K90.0 Celiac disease | CPT/HCPCS: 99212 ==

== ENCOUNTER 2021-09-24 09:47 | Outpatient (REF) | payer OTHER, SELFPAY ==
--- NOTE | ~2021-09-24 | XR_ITS ---
EXAMINATION: XR LUMBOSACRAL SPINE CLINICAL INFORMATION: Low back pain. COMPARISON: None TECHNIQUE: Three views of the lumbosacral spine. FINDINGS: There is normal lumbar lordosis. The vertebral heights and alignment are normal. The disc heights are preserved. There is mild L4-L5 and L5-S1 facet joint arthropathy and hypertrophy. There is no visible acute fracture, dislocation or lytic process. There is mild ventral spondylosis at L3-L4 disc level. XR/XR lumbar spine 2-3V IMPRESSION: Mild ventral spondylosis L2-L3 disc level. No visible acute fracture or dislocation seen.
[2021-09-24 11:34] LABS: Hematocrit 40.8 % (37.0-47.0); Hemoglobin 13.5 g/dl (12.0-16.0); Mean Corpuscular HGB Conc 33.1 g/dl (31.0-35.0); Mean Corpuscular Hemoglobin 32.6 pg (27.0-33.0); Mean Corpuscular Volume 98.6 fL (80.0-98.0); Mean Platelet Volume 8.8 fL (9.4-12.3); Platelet Count 265 X10*3/uL (160-400); Red Blood Count 4.14 X10*6/uL (4.20-5.50); Red Cell Distribution Width 11.9 % (11.0-16.0); White Blood Count 5.8 X10*3/uL (4.8-10.8)
[2021-09-24 12:01] LABS: TSH reflex Free T4 3.57 uIU/mL (0.32-4.0); Vitamin D 25-OH Total 31.7 ng/mL (>30)
[2021-09-24 12:12] LABS: Alanine Aminotransferase 22 U/L (0-31); Albumin Level 4.3 g/dL (3.5-5.0); Alkaline Phosphatase 80 U/L (39-117); Anion Gap 10 (12-20); Aspartate Amino Transferase 27 U/L (5-31); Bilirubin Total 0.5 mg/dL (0.0-1.0); Blood Urea Nitrogen 11 mg/dL (9-16); Calcium 9.8 mg/dL (8.4-10.2); Carbon Dioxide 28 mmol/L (22-29); Chloride 105 mmol/L (96-108); Cholesterol 252 mg/dL; Estimated Glomerular Filt Rate > 60; Glucose Fasting 89 mg/dL (60-99); HDL Cholesterol 101 mg/dL; LDL Cholesterol Calculated 141 mg/dl; Potassium 4.3 mmol/L (3.3-5.1); Sodium 139 mmol/L (135-145); Total Protein 6.6 g/dL (6.5-8.0); Triglycerides 50 mg/dL
[2021-09-24 12:16] LABS: Folate 2.9 ng/mL (> or = 4.0); Vitamin B12 393 pg/mL (200-900)
== END 2021-09-24 09:48 | disposition home or self-care (01) ==
LOC: HO.HMGCX 09:47
PROVIDERS: PCP Internal Medicine; Visit Provider Internal Medicine
DX: Z00.00 Encounter for general adult medical examination without abnormal findings (principal); M54.50 Low back pain, unspecified; E55.9 Vitamin D deficiency, unspecified
CPT/HCPCS: 36415; 72100; 80053; 80061; 82306; 82607; 82746; 84443; 85027

== ENCOUNTER 2021-12-29 14:00 | Outpatient (RCR) | payer OTHER, MEDICAID, SELFPAY ==
--- NOTE | 2021-11-11 08:56 | MHC.PT.EP ---
[facility] [place] [facility] [place] [facility] [place] [facility] [address] [phone] F: [phone] F: [phone] F: [phone] F: [phone] Physical Therapy Plan of Care Date of Evaluation: Date of Surgery: Diagnosis: low back pain Assessment: Patient is a 56 year old R handed female who presents with s/s consistent with low back pain. She does not currently work but does spend a good amount of time gardening and enjoys being active. Patient past medical history includes bipolar disorder, celiac disease. Current impairments include pain, posture, ROM, strength, activity tolerance and functional mobility. Functional limitations include decreased ability to bend, transfer, walk, lift, carry, garden and travel. Patient is motivated with good rehab potential. Skilled PT will address impairments and functional limitations in order to achieve goals. Frequency and Duration: The patient will be seen 2x/week for 5 weeks Short Term Goals: I with HEP -2 weeks AROM symmetrical in ER and lumbar rotation - 3 weeks TTP R piriformis absent - 3 weeks [employer] Goals: Oswestry 10% or less - 5 weeks Able to garden with 2/10 pain max - 5 weeks hip strength 4/5 grossly or better - 5 weeks Treatment Plan: Modalities to reduce pain, spasms and effusion. Manual therapy to restore motion and function. Therapeutic exercise to improve strength and flexibility. Neuromuscular re-education for posture and balance. Therapeutic activities to return to functional activities of daily living. Electronically signed by: Solitario Oden PT Please sign and return to therapist. Thank you for your referral.
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
== END 2022-02-24 11:09 | disposition home or self-care (01) ==
LOC: HO.PTCHIC 14:00
PROVIDERS: PCP Internal Medicine; Visit Provider Internal Medicine
DX: M54.50 Low back pain, unspecified (principal)
CPT/HCPCS: 97110; 97162

== ENCOUNTER 2022-01-05 08:50 | Emergency (ER) | payer OTHER, MEDICAID, SELFPAY ==
--- NOTE | ~2022-01-05 | XR_ITS ---
EXAMINATION: XR CERVICAL SPINE CLINICAL INFORMATION: Neck pain. COMPARISON: None TECHNIQUE: AP. Lateral. Swimmer's. Odontoid. FINDINGS: No fracture. No subluxation. No prevertebral soft tissue swelling. No bone destruction or focal bone lesion. Alignment of vertebrae is maintained. Significant degenerative disc height narrowing C4-C5, C5-C6. Mild facet joint arthrosis bilateral. XR/XR cervical spine 3V IMPRESSION: 1. No acute abnormality. 2. Degenerative spondylosis of cervical spine.
--- NOTE | ~2022-01-05 | XR_ITS ---
EXAMINATION: XR SHOULDER, RIGHT CLINICAL INFORMATION: Pain and decreased mobility COMPARISON: None TECHNIQUE: Three views of the right shoulder. FINDINGS: Alignment is normal at the acromioclavicular and glenohumeral joints. No evidence of arthritis, fracture or subluxation. The acromiohumeral distance is normal. There are foci of calcification in the region of the supraspinatus tendon and overlying the greater tuberosity in the region of the subdeltoid bursa. Calcium hydroxyapatite deposition could be a source of pain. Otherwise, soft tissues are unremarkable. The visualized portion of the right lung is normal. XR/XR shoulder RT min 2V IMPRESSION: There is calcium deposition in the region of the subdeltoid bursa and supraspinatus tendon. Calcium hydroxyapatite deposition disease could be a source of pain. Otherwise, unremarkable exam.
[2022-01-05 09:36] VITALS: PULSE 66; RESP 18; TEMP 36.9; O2SAT 100; BMI 23.6
[2022-01-05 09:39] VITALS: BP 154/90
[2022-01-05 16:00] VITALS: BP 140/73; PULSE 72; RESP 16; TEMP 37; O2SAT 97
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
[2022-01-05] MEDS: diazePAM 2 MG TABLET PO (16:45)
[2022-01-05 18:00] VITALS: BP 145/67; PULSE 77; RESP 16; TEMP 36.8; O2SAT 98
== END 2022-01-05 19:16 | disposition home or self-care (01) ==
PROVIDERS: Emergency Provider Internal Medicine; PCP Internal Medicine
DX: M75.31 Calcific tendinitis of right shoulder (principal); M25.511 Pain in right shoulder; M54.2 Cervicalgia; M47.892 Other spondylosis, cervical region; Z79.899 Other long term (current) drug therapy; Z87.891 Personal history of nicotine dependence
CPT/HCPCS: 72040; 73030; 99283; 99284

== ENCOUNTER → 2022-02-08 13:53 | Outpatient (BNVA) | payer OTHER, MEDICAID, SELFPAY | PROVIDERS: PCP Internal Medicine; Referring Provider Internal Medicine; Visit Provider Nurse Practitioner | DX: K58.2 Mixed irritable bowel syndrome (principal); K90.0 Celiac disease; K21.9 Gastro-esophageal reflux disease without esophagitis | CPT/HCPCS: 99212 ==

== ENCOUNTER 2022-04-20 13:00 | Outpatient (RCR) | payer OTHER, MEDICAID, SELFPAY ==
--- NOTE | 2022-02-16 13:59 | MHC.PT.EP ---
[facility] [place] Office [place] Office [place] Office [address] [phone] F: [phone] F: [phone] F: [phone] F: [phone] Physical Therapy Plan of Care Date of Evaluation: Date of Surgery: none Diagnosis: Pain in R shoulder. Assessment: Patient is a 56 year old R handed female who presents with s/s consistent with R shoulder pain. She does not work but does like to stay active. Patient past medical history includes IBS and back pain. Current impairments include pain, posture, ROM, strength, activity tolerance and functional mobility. Functional limitations include decreased ability to sleep, lift, carry, push, dress and pull. Patient is motivated with good rehab potential. Skilled PT will address impairments and functional limitations in order to achieve goals. Frequency and Duration: The patient will be seen 2x/week for 5 weeks Short Term Goals: I with HEP - 2 weeks Pain free full AROM - 3 weeks Strength 4/5 grossly - 3 weeks Skilled Nursing Goals: Pain free sleep - 5 weeks Pain free ADLs - 5 weeks Strength 4+/5 - 5 weeks Treatment Plan: Modalities to reduce pain, spasms and effusion. Manual therapy to restore motion and function. Therapeutic exercise to improve strength and flexibility. Neuromuscular re-education for posture and balance. Therapeutic activities to return to functional activities of daily living. Electronically signed by: Solitario Oden, PT Please sign and return to therapist. Thank you for your referral.
--- NOTE | 2022-05-19 12:58 | MHC.PT.DC ---
[facility] [place] [facility] [place] [facility] [place] [facility] [address] Kathy Kim [address] [phone] F: [phone] F: [phone] F: [phone] F: [phone] Physical Therapy Discharge Report Diagnosis: Pain in R shoulder. Date of Surgery: none Date of Evaluation: 02/16/22 Date of Discharge: 05/19/22 Treatments to Date: 6 Cancellations to Date: No Shows to Date: Discharge Status: Improved Function Independent with HEP Discharge Summary: Pt content with continuing with HEP at this time to pursue continued improvement. \ 04/20/2022: Pt completes exercises with good form. No pain reported during session. [place] relief from TPR today. Still with difficulty with abd even at the end of session. Advised continuing with HEP at home and pt with good verbal understanding. 04/06/22: pt has had a tough time with consistent attendance. we did issue stat patch today for lateral shoulder pain. educated on use and removal as well as possible side effects. assess response and progress as tolerated with shoulder strength and posture. 03/16/22: pt has been experiencing discomfort in R side of neck. She has responded well to exercise. we initiated manual intervention due to tightness in LS/UT. 03/02/22: minor soreness present with scaption and abduction. we will add more stretching NV and to HEP. 02/23/22: pt progressing well overall with strength. responding well. continue to progress as tolerated and update HEP NV. Patient is a 56 year old R handed female who presents with s/s consistent with R shoulder pain. She does not work but does like to stay active. Patient past medical history includes IBS and back pain. Current impairments include pain, posture, ROM, strength, activity tolerance and functional mobility. Functional limitations include decreased ability to sleep, lift, carry, push, dress and pull. Patient is motivated with good rehab potential. Skilled PT will address impairments and functional limitations in order to achieve goals. Electronically signed by: Solitario Oden, PT Please sign and return to therapist. Thank you for your referral.
== END 2022-05-19 12:58 | disposition home or self-care (01) ==
LOC: HO.PTCHIC 13:00
PROVIDERS: PCP Internal Medicine; Visit Provider Internal Medicine
DX: M25.511 Pain in right shoulder (principal)
CPT/HCPCS: 97110; 97140; 97162

== ENCOUNTER → 2022-08-31 13:52 | Outpatient (BNVA) | payer OTHER, MEDICAID, SELFPAY | PROVIDERS: PCP Internal Medicine; Visit Provider Nurse Practitioner | DX: K58.2 Mixed irritable bowel syndrome (principal); K90.0 Celiac disease; K21.9 Gastro-esophageal reflux disease without esophagitis | CPT/HCPCS: 99212 ==

== ENCOUNTER 2022-12-14 12:45 | Emergency (ER) | payer OTHER, MEDICAID, SELFPAY ==
--- NOTE | ~2022-12-14 | XR_ITS ---
STUDY: Thoracic and lumbar spine INDICATION: Back pain and spasms COMPARISON: 09/24/2021 lumbar spine TECHNIQUE: 3 view thoracic and three-view lumbar spine. FINDINGS: Thoracic spine: Despite swimmer's view, there is still limited evaluation of the upper thoracic vertebral bodies on lateral view. Visualized thoracic vertebral bodies and disc spaces are maintained in height. Cervical spine degenerative type changes with multilevel spurring and disc space narrowings. Pedicles and visualized ribs are intact. No focal paravertebral soft tissue swelling is seen. Heart, mediastinum and visualized lung santoro are unremarkable. Lumbar spine: Unchanged normal alignment. Vertebral bodies heights remain maintained. R3-L4 spurring again seen. Lower lumbar and lumbosacral facet hypertrophic changes again noted. XR/XR lumbar spine 2-3V IMPRESSION: No acute bony pathology thoracic and lumbar spine.
--- NOTE | ~2022-12-14 | XR_ITS ---
STUDY: Thoracic and lumbar spine INDICATION: Back pain and spasms COMPARISON: 09/24/2021 lumbar spine TECHNIQUE: 3 view thoracic and three-view lumbar spine. FINDINGS: Thoracic spine: Despite swimmer's view, there is still limited evaluation of the upper thoracic vertebral bodies on lateral view. Visualized thoracic vertebral bodies and disc spaces are maintained in height. Cervical spine degenerative type changes with multilevel spurring and disc space narrowings. Pedicles and visualized ribs are intact. No focal paravertebral soft tissue swelling is seen. Heart, mediastinum and visualized lung santoro are unremarkable. Lumbar spine: Unchanged normal alignment. Vertebral bodies heights remain maintained. R3-L4 spurring again seen. Lower lumbar and lumbosacral facet hypertrophic changes again noted. XR/XR thoracic spine 2V IMPRESSION: No acute bony pathology thoracic and lumbar spine.
[2022-12-14 12:53] VITALS: BP 142/93; PULSE 85; RESP 16; TEMP 36.3; O2SAT 100; BMI 22.7
--- NOTE | 2022-12-14 12:53 | ED_ITS ---
HPI - General Adult General Chief complaint: Back Pain/Injury Stated complaint: back spasm Time Seen by Provider: 12/14/22 15:23 Source: patient, RN notes reviewed and old records reviewed Mode of arrival: ambulatory History of Present Illness HPI narrative: 57-year-old female with past medical history bipolar, celiac, GERD, HLD, chronic back pain, presenting to the ED complaining of acute on chronic left sided low back pain s/p picking up her dog off the bed this morning. Admits she is dealing with acute on chronic lower back pain/spasms x6 weeks, was seen at urgent care prescribed muscle relaxers initially with relief however pain returned today. Denies direct injury/trauma or fall, numbness, tingling, weakness, urinary incontinence/retention, fever Onset (ago): week(s) Related Data Home Medications Medication Instructions Recorded Confirmed carbamazepine 200 mg tablet 200 mg PO BID 09/30/20 01/26/22 lorazepam 1 mg tablet 1 mg PO DAILY PRN 02/08/22 Previous Rx's Medication Instructions Recorded folic acid 1 mg tablet 1 mg PO DAILY #90 tabs 10/01/21 dicyclomine 10 mg capsule 10 mg PO BID for abdominal pain 08/31/22 #180 caps docusate sodium 100 mg capsule 100 mg PO BID #60 caps 08/31/22 famotidine 40 mg tablet (Pepcid) 40 mg PO BEDTIME 30 days #60 tabs 08/31/22 sennosides 8.6 mg tablet (Senna 17.2 mg PO BEDTIME PRN 08/31/22 Laxative) constipation #60 tabs acetaminophen 500 mg tablet 500 mg PO Q6H PRN fever or pain 12/14/22 (Tylenol Extra Strength) #14 tabs cyclobenzaprine 5 mg tablet 5 mg PO Q8H PRN pain (scale score 12/14/22 7-10) 5 days #14 tabs lidocaine 5 % topical patch 1 patch topical DAILY PRN pain #30 12/14/22 (Lidoderm) ea naproxen 500 mg tablet 500 mg PO BID PRN pain 10 days #20 12/14/22 tabs prednisone 20 mg tablet 40 mg PO DAILY 5 days #10 tabs 12/14/22 Allergies Allergy/AdvReac Type Severity Reaction Status Date / Time lamotrigine [LAMOTRIGINE] Allergy Severe Rash Verified 12/14/22 12:56 sulfamethoxazole Allergy Mild Itching Verified 12/14/22 12:56 [From ] trimethoprim [From ] Allergy Mild Itching Verified 12/14/22 12:56 Sulfa (Sulfonamide Allergy Unknown itchy Verified 12/14/22 12:56 Antibiotics) Review of Systems Review of Systems: Constitutional: No Fever, No Chills ENT/Mouth: No Ear Pain, No Nasal Congestion, No sore throat, No Rhinorrhea, No Swallowing Difficulty Cardiovascular: No Chest Pain, No SOB Respiratory: No Cough, No Sputum, No Wheezing Gastrointestinal: No Nausea, No Vomiting, No Abdominal pain Genitourinary: No Dysuria, No Urinary Frequency, No Hematuria, No Urinary Incontinence/retention, No Urgency, No Flank Pain Musculoskeletal: + joint pain, No Myalgias, No Joint Swelling Skin: No Skin Lesions, No rash Neuro: No Weakness, No Numbness, No Paresthesias Yes all other systems are reviewed and are negative Constitutional: Constitutional: Reports as per HPI Neurologic: Denies Sensory deficit (Neuro) [facility] Past Medical History Attestation statement: The following information was validated with the patient. Source: old records reviewed Medical History Annual physical exam Bilateral thumb pain Bipolar 1 disorder Celiac disease Diverticulosis Environmental allergies GERD (gastroesophageal reflux disease) Hyperlipidemia Lower back pain Mammogram declined Vitamin D deficiency Surgical History History of carpal tunnel release (~2019) History of esophagogastroduodenoscopy (EGD) History of tonsillectomy Hx of colonoscopy Hx of hemorrhoidectomy Family History Family History Mother Stomach problems Father Heart problem Daughter Diabetes Other Bipolar 1 disorder Social History Social History Household Members: Significant Other Housing: House Do you presently have visiting nurse or other home services: No Alcohol intake: current Alcohol intake frequency: 0-2 drinks per day Alcohol type: wine Patient Tobacco Use Status: Former Tobacco user Tobacco use type: Cigarette Cigarettes Per Day: 3 Smoked in Last 30 Days: No e-Cigarette/Vaping Use: Former Use Use of substances other than those prescribed or required for medical reasons: Yes Substance Use Type: Marijuana Substance Use Frequency: Daily Last Used Substance: Days (ago) Advance Directives: Yes Advance Directives on File: Yes Advance Directives Date on File: 10/05/20 service: No Current occupational status: disabled Cognitive needs: No Hearing needs: No Vision needs: Yes Physical Exam ED Vital Signs: Vital Signs - 24 hr 12/14/22 12:53 12/14/22 16:32 Temperature 97.4 F 98.4 F Pulse Rate 85 66 Respiratory Rate 16 18 Blood Pressure 142/93 H 132/83 Pulse Oximetry 100 Oxygen Delivery Method Room Air BMI result Body Mass Index 22.7 Const General: cooperative, healthy appearing and no acute distress Orientation/consciousness: patient oriented x3 Limitations: no limitations HENMT Head: Yes normal to inspection and Yes atraumatic Ears: hearing grossly normal bilaterally General nose exam: Normal external nose present Face and sinus: Yes normal facial exam Eyes General: appearance normal, both eyes and all related structures EOM: EOMs intact bilaterally Neck Neck: Yes normal visual inspection and Yes no meningeal signs Resp Effort & Inspection: normal respiratory effort and no respiratory distress Cardio Rate: regular rate GI Inspection: Yes normal to inspection Palpation (GI): Soft to palpation, nontender, no guarding and not rigid General: Yes no CVA tenderness Back/Spine/Pelvis Other: No midline cervical/thoracic/lumbar spinous tenderness/step-off or deformity. + left-sided lumbar MSK/paraspinal tenderness to palpation reproducing subjective complaint. No erythema/rash Back: no CVA tenderness Skin Rashes: no rashes Wounds: no wounds Neuro Other: Strength intact throughout. No saddle anesthesia. Sensation intact to light touch. Neurovascular intact distally General: patient oriented x3, gait normal, tone normal, moves all extremities, no meningeal signs and no focal motor deficits Cranial nerves: Yes CN's II-XII intact bilaterally Gait exam (Neuro): Normal gait present Motor exam (neuro): 5/5 motor strength present throughout Sensory Exam: No Sensory deficit (Neuro) Extrem General: Yes normal to inspection Course Course Course Narrative: This is an RME: Additional HPI, ROS, PE not included below will be deferred to primary provider. Patient is a 57-year-old female with history of IBS, HLD, GERD, pancreatitis, diverticulitits presenting with lower back spasms intermittently for the past month. She states the pain was manageable at first and has become increasingly worse. Went to in [place] and was prescribed muscle relaxers which worked initially but then were not helpful. Has also tried warm compresses. States pain began today after attempting to forklift picker her puppy off the floor. Took lorazepam for anxiety this morning. Denies any new bowel/bladder incontinence or saddle anesthesia. Denies any urinary symptoms. Denies falls or any other trauma. XR thoracic spine 2V/XR lumbar spine 2-3V IMPRESSION: No acute bony pathology thoracic and lumbar spine. > reports symptomatic improvement after medications given in triage Results discussed with patient including worrisome signs and symptoms and strict return precautions, and when to return to the emergency department. They verbalized understanding and feel safe for discharge at this time. Medications Administered Discontinued Medications Generic Name Dose Route Start Last Admin Trade Name Freq PRN Reason Stop Dose Admin Cyclobenzaprine HCl 10 mg 12/14/22 12:58 12/14/22 13:03 Cyclobenzaprine Hcl 10 Mg Tablet PO 12/14/22 12:59 10 mg ONCE ONE Administration Ketorolac Tromethamine 30 mg 12/14/22 12:58 12/14/22 13:02 Ketorolac Tromethamine 30 Mg/Ml Vial IM 12/14/22 12:59 30 mg ONCE ONE Administration Lidocaine 1 patch 12/14/22 16:39 12/14/22 16:45 Lidocaine 4 % Patch Adh..Patch TRANSDERMA 12/14/22 16:40 1 patch ONCE ONE Administration Protocol Prednisone 40 mg 12/14/22 16:39 12/14/22 16:45 Prednisone 20 Mg Tablet PO 12/14/22 16:40 40 mg ONCE ONE Administration Medical Decision Making Medical Decision Making MDM Narrative: 57-year-old female with past medical history bipolar, celiac, GERD, HLD, chronic back pain, presenting to the ED complaining of acute on chronic left sided low back pain s/p picking up her dog off the bed this morning. On exam vital signs stable, NAD, nontoxic-appearing, physical exam as noted above with reproducible left-sided MSK tenderness. No midline spinous tenderness or red flag symptoms. No saddle anesthesia. Ambulating with steady gait. Concern for MSK pain/strain/spasming. Low suspicion for cauda equina, cord compression, epidural abscess, renal stone/pyelo X-rays ordered in triage, pain control Please refer to course for remaining clinical decision making, interpretation of labs/imaging results, and discussions with consultants and/or family members. Differential Diagnosis Differential Diagnoses: The differential diagnosis associated with the presentation includes As above Independent Historian Clinical information obtained from an independent historian. History obtained from or confirmed by: Spouse External Record Review External record reviewed: Inpatient record, Office record, Outpatient record, Prior outpatient labs, Prior outpatient radiology, Primary care record and Outside ED record Tests considered The following testing was considered but not selected: As above Prescription Management I considered prescription management with: Pain Medication Discharge Plan Discharge Clinical Impression: Low back pain Patient Disposition: Home, Self-Care Instructions: Acute Low Back Pain (ED) Additional Instructions: Your pain is likely musculoskeletal. Her x-rays are unremarkable Flexeril is a muscle relaxer, take at night as it makes you drowsy, do not drive, drink alcohol, or operate machinery while taking it Naproxen as an anti-inflammatory / pain medication, take with food Lidoderm patches are numbing patches, apply to painful area In addition take Tylenol at home Prednisone as a steroid, please take as prescribed If symptoms persist or worsen, pain becomes unbearable, you developed urinary retention or incontinence, or weakness return to the ED Prescriptions: New acetaminophen [Tylenol Extra Strength] 500 mg tablet 500 mg PO Q6H PRN (Reason: fever or pain) Qty: 14 0RF lidocaine [Lidoderm] 5 % adhesive patch,medicated 1 patch topical DAILY MDD remove after 12 hours PRN (Reason: pain) Qty: 30 0RF Rx Instructions: leave on most painful area for up to 12 hrs naproxen 500 mg tablet 500 mg PO BID PRN (Reason: pain) 10 Days Qty: 20 0RF cyclobenzaprine 5 mg tablet 5 mg PO Q8H PRN (Reason: pain (scale score 7-10)) 5 Days Qty: 14 0RF prednisone 20 mg tablet 40 mg PO DAILY 5 Days Qty: 10 0RF No Action carbamazepine 200 mg tablet 200 mg PO BID folic acid 1 mg tablet 1 mg PO DAILY Qty: 90 3RF lorazepam 1 mg tablet 1 mg PO DAILY PRN dicyclomine 10 mg capsule 10 mg PO BID Qty: 180 2RF famotidine [Pepcid] 40 mg tablet 40 mg PO BEDTIME 30 Days Qty: 60 6RF docusate sodium 100 mg capsule 100 mg PO BID Qty: 60 6RF sennosides [Senna Laxative] 8.6 mg tablet 17.2 mg PO BEDTIME PRN (Reason: constipation) Qty: 60 6RF Referrals: [facility] [Outside] Carlyn Azul MD [Primary Care Provider] - 3 days Interventions: ED Discharge Assessment Last Done: 12/14/22 17:00 Discharge Date/Time: 12/14/22 17:00
[2022-12-14] MEDS: Ketorolac Tromethamine 30 MG/ML VIAL IM (13:02)
[2022-12-14] MEDS: Cyclobenzaprine HCl 10 MG TABLET PO (13:03)
[2022-12-14 16:32] VITALS: BP 132/83; PULSE 66; RESP 18; TEMP 36.9
[2022-12-14] MEDS: Lidocaine 4 % Patch ADH..PATCH 1 PATCH TRANSDERMA (16:45)
[2022-12-14] MEDS: predniSONE 20 MG TABLET 40 MG PO (16:45)
--- NOTE | 2022-12-14 16:52 | PC.NURSE ---
Per Alayna METZGER no need to wait for the the urine to be done
== END 2022-12-14 17:00 | disposition home or self-care (01) ==
PROVIDERS: Emergency Provider Emergency Medicine Emergency Medical Services; PCP Internal Medicine
DX: M54.50 Low back pain, unspecified (principal); E78.5 Hyperlipidemia, unspecified; F12.90 Cannabis use, unspecified, uncomplicated; Z87.891 Personal history of nicotine dependence
CPT/HCPCS: 72070; 72100; 96372; 99284; J1885

== ENCOUNTER 2022-12-28 14:05 | Outpatient (AMB) | payer OTHER, MEDICAID, SELFPAY ==
[2022-12-28 14:18] VITALS: BP 116/74; PULSE 76; O2SAT 98; BMI 22.7
--- NOTE | 2022-12-28 14:18 | A.OFFPC_ITS ---
Vital Signs 12/28/22 14:18 Height 5 ft 1 in Weight 120 lb BMI 22.7 BP 116/74 Blood Pressure Location Lt brachial Position Sitting Pulse 76 Pulse Source Pulse Oximeter Pulse Oximetry (%) 98 Oxygen Delivery Method Room Air Intake Visit Reasons: [facility] [place] ER followup Intake Note: Pt is here today for ER follow up visit. Pt states that she was at [facility] [place]. Allergies lamotrigine [LAMOTRIGINE] Allergy (Severe, Verified 12/28/22 14:23) Rash sulfamethoxazole [From Septra] Allergy (Mild, Verified 12/28/22 14:23) Itching trimethoprim [From Septra] Allergy (Mild, Verified 12/28/22 14:23) Itching Sulfa (Sulfonamide Antibiotics) Allergy (Unknown, Verified 12/28/22 14:23) itchy Medication List - Last Reconciled 12/28/22 by Carlyn Azul MD carbamazepine 200 mg PO BID dicyclomine 10 mg PO BID docusate sodium 100 mg PO BID famotidine (Pepcid) 40 mg PO BEDTIME 30 days folic acid 1 mg PO DAILY lorazepam 1 mg PO DAILY PRN naproxen 500 mg PO BID PRN 10 days sennosides (Senna Laxative) 17.2 mg (2 x 8.6 mg) PO BEDTIME PRN Tobacco use date assessed: 12/28/22 Dental Screening Dental Screen Date: 12/28/22 Did you have a dental visit in the last 12 months?: Yes Did you have a dental problem in the last 6 months where you did not have access to dental care?: No Was dental information given to patient?: Patient has dentist HPI [facility] [place] ER followup HPI Details Pt presents for f/u ER visit for acute LBP and muscle spasms, feeling better after tx. Pt was seen by master lay out specialist. [facility] Medical History Annual physical exam Bilateral thumb pain Bipolar 1 disorder Celiac disease Diverticulosis Environmental allergies GERD (gastroesophageal reflux disease) Hyperlipidemia Lower back pain Mammogram declined Vitamin D deficiency Surgical History History of carpal tunnel release (~2019) History of esophagogastroduodenoscopy (EGD) History of tonsillectomy Hx of colonoscopy Hx of hemorrhoidectomy Family History (Updated 12/28/22 @ 14:26 by KACIE Berrios) Mother Stomach problems Mental health disorder Father Heart problem Daughter Diabetes Other Bipolar 1 disorder Social History Household Members: Significant Other Housing: House Do you presently have visiting nurse or other home services: No Alcohol intake: current Alcohol intake frequency: 0-2 drinks per day Alcohol type: wine Patient Tobacco Use Status: Current everyday Tobacco user Tobacco use type: Cigarette Cigarettes Per Day: 3 e-Cigarette/Vaping Use: Former Use Substance Use Type: Marijuana Advance Directives Date on File: 10/05/20 service: No Current occupational status: disabled Cognitive needs: No Hearing needs: No Vision needs: Yes Questionnaire Thrive Questionnaire Date Thrive assessed: 08/18/21 AUDIT C Alcohol Use Questionnaire (AUDIT-C) 1. How often do you have a drink containing alcohol?: 2-4 times a month 2. How many drinks containing alcohol do you have on a typical day when you are drinking?: 1 or 2 3. How often do you have six or more drinks on one occasion?: Never Total Score: 2 PAVEL-7 AMB Questionnaire PAVEL-7 Date PAVEL - 7 assessed: 08/18/21 Source: Developed by Drs. Patel Lopez, Leslie Stevens, Alphonse Michael and colleagues, with an educational merlin from [employer]. Review of Systems Const All systems reviewed & are unremarkable except as noted in HPI and below Reports no additional complaints Eyes Reports no additional complaints ENT Reports no additional complaints Card Reports no additional complaints Resp Reports no additional complaints GI Reports no additional complaints Reports no additional complaints Musc Reports no additional complaints Physical exam (Primary Care) Vital Signs: Last Vital Signs Pulse 76 12/28/22 14:18 BP 116/74 12/28/22 14:18 Pulse Ox 98 12/28/22 14:18 Oxygen Delivery Method Room Air 12/28/22 14:18 BMI result Body Mass Index 22.7 Tobacco/Smoking Status: Tobacco use Status Tobacco use date assessed 12/28/22 12/28/22 14:27 Patient Tobacco Use Status Current everyday Tobacco 12/28/22 14:27 Tobacco use type Cigarette 12/28/22 14:18 e-Cigarette/Vaping Use Former Use 12/28/22 14:18 Thrive Assessment: Date of Thrive Assessment Date Thrive assessed 08/18/21 12/28/22 14:18 Const General: no acute distress HENMT Head: Yes normal to inspection Ears: hearing grossly normal bilaterally Face and sinus: Yes normal facial exam Throat: Yes posterior oropharynx normal Eyes General: appearance normal, both eyes and all related structures Neck Neck: Yes supple Resp Effort & Inspection: normal respiratory effort Auscultation: clear to auscultation bilaterally Cardio Rhythm: regular rhythm Heart sounds: S1 normal heart sound present and S2 normal heart sound present GI Inspection: Yes normal to inspection Palpation (GI): Soft to palpation Percussion: Yes normal to percussion Auscultation: normal bowel sounds Assessment and Plan Assessment & Plan (1) Hyperlipidemia: Code(s): E78.5 - Hyperlipidemia, unspecified Plan: cont low cholesterol diet, check lipid profile (2) Celiac disease: Code(s): K90.0 - Celiac disease Plan: f/u with GI (3) Annual physical exam: Comment: Pt declined mammogram Code(s): Z00.00 - Encounter for general adult medical examination without abnormal findings Plan: return for PE (4) Vitamin D deficiency: Code(s): E55.9 - Vitamin D deficiency, unspecified (5) Lower back pain: Code(s): M54.50 - Low back pain, unspecified Plan: cont LB exercises Orders: Orders Vitamin B12 and Folate Today E55.9 - Vitamin D deficiency, unspecified, E78.5 - Hyperlipidemia, unspecified, R71.8 - Other abnormality of red blood cells, Z00.00 - Encounter for general adult medical examination without abnormal findings Comprehensive [place]. Panel Fast Today E55.9 - Vitamin D deficiency, unspecified, E78.5 - Hyperlipidemia, unspecified, R71.8 - Other abnormality of red blood cells, Z00.00 - Encounter for general adult medical examination without abnormal findings Lipid Panel Today E55.9 - Vitamin D deficiency, unspecified, E78.5 - Hyperlipidemia, unspecified, R71.8 - Other abnormality of red blood cells, Z00.00 - Encounter for general adult medical examination without abnormal findings TSH reflex Free T4 Today E55.9 - Vitamin D deficiency, unspecified, E78.5 - Hyperlipidemia, unspecified, R71.8 - Other abnormality of red blood cells, Z00.00 - Encounter for general adult medical examination without abnormal findings Vitamin D 25-OH Total Today E55.9 - Vitamin D deficiency, unspecified, E78.5 - Hyperlipidemia, unspecified, R71.8 - Other abnormality of red blood cells, Z00.00 - Encounter for general adult medical examination without abnormal findings Complete Blood Count Auto Diff Today E55.9 - Vitamin D deficiency, unspecified, E78.5 - Hyperlipidemia, unspecified, R71.8 - Other abnormality of red blood cells, Z00.00 - Encounter for general adult medical examination without abnormal findings Medications: Refilled folic acid 1 mg PO DAILY 90 tabs 3RF Coding Level of Care Code Est Pt Level 3 (53452) Diagnoses Hyperlipidemia E78.5 Celiac disease K90.0 Annual physical exam Z00.00 Vitamin D deficiency E55.9 Lower back pain M54.50
== END 2022-12-28 15:07 | disposition home or self-care (01) ==
PROVIDERS: PCP Internal Medicine; Visit Provider Internal Medicine
DX: E78.5 Hyperlipidemia, unspecified (principal); K90.0 Celiac disease; Z00.00 Encounter for general adult medical examination without abnormal findings; E55.9 Vitamin D deficiency, unspecified; M54.50 Low back pain, unspecified
CPT/HCPCS: 99213

== ENCOUNTER 2023-02-24 13:14 | Outpatient (AMB) | payer OTHER, MEDICAID, SELFPAY ==
--- NOTE | 2023-02-24 13:42 | A.OFFPC_ITS ---
Vital Signs 02/24/23 13:43 Height 5 ft 1 in Weight 121 lb BMI 22.9 BP 122/74 Blood Pressure Location Lt brachial Position Sitting Pulse 77 Pulse Source Pulse Oximeter Pulse Oximetry (%) 97 Oxygen Delivery Method Room Air Intake Visit Reasons: PE Intake Note: Pt is here today for PE. Allergies lamotrigine [LAMOTRIGINE] Allergy (Severe, Verified 02/24/23 13:50) Rash sulfamethoxazole [From Septra] Allergy (Mild, Verified 02/24/23 13:50) Itching trimethoprim [From Septra] Allergy (Mild, Verified 02/24/23 13:50) Itching Sulfa (Sulfonamide Antibiotics) Allergy (Unknown, Verified 02/24/23 13:50) itchy Medication List - Last Reconciled 02/24/23 by Carlyn Azul MD carbamazepine 200 mg PO BID dicyclomine 10 mg PO BID docusate sodium 100 mg PO BID famotidine (Pepcid) 40 mg PO BEDTIME 30 days folic acid 1 mg PO DAILY lorazepam 1 mg PO DAILY PRN sennosides (Senna Laxative) 17.2 mg (2 x 8.6 mg) PO BEDTIME PRN Tobacco use date assessed: 02/24/23 Dental Screening Dental Screen Date: 02/24/23 Did you have a dental visit in the last 12 months?: Yes Did you have a dental problem in the last 6 months where you did not have access to dental care?: No Was dental information given to patient?: Patient has dentist HPI PE HPI Details Pt presents for PE. PATIENT FOLLOWS UP WITH GI FOR IBS AND IS DUE FOR COLONOSCOPY NEXT YEAR. [facility] Medical History Hyperlipidemia Bilateral thumb pain Lower back pain Diverticulosis Celiac disease Vitamin D deficiency Environmental allergies Mammogram declined Annual physical exam Bipolar 1 disorder GERD (gastroesophageal reflux disease) Surgical History Hx of hemorrhoidectomy History of tonsillectomy History of esophagogastroduodenoscopy (EGD) Hx of colonoscopy History of carpal tunnel release (~2019) Family History Mother Stomach problems Mental health disorder Father Heart problem Daughter Diabetes Other Bipolar 1 disorder Social History Household Members: Significant Other Housing: House Do you presently have visiting nurse or other home services: No Alcohol intake: current Alcohol intake frequency: 0-2 drinks per day Alcohol type: wine Patient Tobacco Use Status: Current someday Tobacco user Tobacco use type: Cigarette Cigarettes Per Day: 3 e-Cigarette/Vaping Use: Former Use Substance Use Type: Marijuana Advance Directives Date on File: 10/05/20 service: No Current occupational status: disabled Cognitive needs: No Hearing needs: No Vision needs: Yes Questionnaire PHQ-9 Over the last 2 weeks, how often have you been bothered by any of the following problems? 1. Little interest or pleasure in doing things: more than half the days 2. Feeling down, depressed, or hopeless: several days 3. Trouble falling or staying asleep, or sleeping too much: not at all 4. Feeling tired or having little energy: more than half the days 5. Poor appetite or overeating: not at all 6. Feeling bad about yourself - or that you are a failure or have let yourself or your family down: not at all 7. Trouble concentrating on things, such as reading the newspaper or watching television: not at all 8. Moving or speaking so slowly that other people could have noticed. Or the opposite - being so fidgety or restless that you have been moving around a lot more than usual: not at all 9. Thoughts that you would be better off or of hurting yourself in some way: not at all Total score: 5 Depression Screening Interpretation: Negative Source: Developed by Drs. Patel Lopez, Leslie Stevens, Alphonse Michael and colleagues, with an educational merlin from [employer]. Thrive Questionnaire Date Thrive assessed: 02/24/23 I am a: Patient What is your living situation today?: I have a steady place to live Within the past 12 months, did the food you bought not last and you didn't have the money to get more?: Never true Within the past 12 months, did you worry whether your food would run out before you got money to buy more?: Never true Do you have trouble paying for medicines?: No Do you have trouble getting transportation to medical appointments?: No Do you have trouble paying your heating and electricity bill?: No Do you have trouble taking care of your child, family member or friend?: No Do you have trouble with day-to-day activities such as bathing, preparing meals, shopping, managing finances, etc.?: No Are you currently unemployed and looking for a job?: No Are you interested in more education?: No Please select the resources that you would like help with: None Currently or been in a relationship where the following occur: no concerns reported PAVEL-7 AMB Questionnaire PAVEL-7 Date PAVEL - 7 assessed: 02/24/23 Feeling nervous, anxious, or on edge: 0 = Not at all Not being able to stop or control worryin = Not at all Worrying too much about different things: 0 = Not at all Trouble relaxin = Not at all Being so restless that it is hard to sit still: 0 = Not at all Becoming easily annoyed or irritable: 0 = Not at all Feeling afraid as if something awful might happen: 0 = Not at all Total PAVEL-7 score (0-4 normal; 5-9 mild; 10-14 moderate; 15-21 severe): 0 Source: Developed by Drs. Patel Lopez, Leslie Stevens, Alphonse Michael and colleagues, with an educational merlin from [employer]. Review of Systems Const All systems reviewed & are unremarkable except as noted in HPI and below Reports no additional complaints Eyes Reports no additional complaints ENT Reports no additional complaints Card Reports no additional complaints Resp Reports no additional complaints GI Reports no additional complaints Reports no additional complaints Physical exam (Primary Care) Vital Signs: Last Vital Signs Pulse 77 02/24/23 13:43 BP 122/74 02/24/23 13:43 Pulse Ox 97 02/24/23 13:43 Oxygen Delivery Method Room Air 02/24/23 13:43 BMI result Body Mass Index 22.9 Tobacco/Smoking Status: Tobacco use Status Tobacco use date assessed 02/24/23 02/24/23 13:55 Patient Tobacco Use Status Current someday Tobacco 02/24/23 13:55 Tobacco use type Cigarette 02/24/23 13:45 e-Cigarette/Vaping Use Former Use 02/24/23 13:45 PHQ-9: PHQ-9 Score PHQ-9: Total score 5 02/24/23 13:55 Depression Screening Interpretation: Negative Thrive Assessment: Date of Thrive Assessment Date Thrive assessed 02/24/23 02/24/23 13:55 Currently or been in a relationship where the following occur: no concerns reported Const General: no acute distress Nutritional Appearance: average body habitus HENIN Head: Yes normal to inspection Ears: hearing grossly normal bilaterally General nose exam: Normal external nose present Face and sinus: Yes normal facial exam Mouth: Normal oral and palatal mucosa present Throat: Yes posterior oropharynx normal Eyes General: appearance normal, both eyes and all related structures Neck Neck: Yes no lymphadenopathy and Yes supple Resp Effort & Inspection: normal respiratory effort Auscultation: clear to auscultation bilaterally Cardio Rhythm: regular rhythm Heart sounds: S1 normal heart sound present and S2 normal heart sound present GI Inspection: Yes normal to inspection Palpation (GI): Soft to palpation Percussion: Yes normal to percussion Auscultation: normal bowel sounds Assessment and Plan Assessment & Plan (1) Annual physical exam: Comment: Pt declined mammogram Code(s): Z00.00 - Encounter for general adult medical examination without abnormal findings Plan: Well balanced diet and regular physical activity discussed with the patient. She had a blood work this morning and results are still pending. Medications: New buspirone 30 mg PO BID 60 tabs 0RF Coding Level of Care Code Est Pt Prev Care 40-64y(87634) Diagnoses Annual physical exam Z00.00
[2023-02-24 13:43] VITALS: BP 122/74; PULSE 77; O2SAT 97; BMI 22.9
== END 2023-02-24 14:37 | disposition home or self-care (01) ==
PROVIDERS: PCP Internal Medicine; Visit Provider Internal Medicine
DX: Z00.00 Encounter for general adult medical examination without abnormal findings (principal)
CPT/HCPCS: 99396

== ENCOUNTER 2023-02-24 13:16 | Outpatient (REF) | payer OTHER, MEDICAID, SELFPAY ==
[2023-02-24 15:57] LABS: MANUAL DIFF FLAG NO
[2023-02-24 16:06] LABS: Basophils Absolute Auto 0.1 X10*3/uL (0.0-0.2); Basophils Percent Auto 1.2 % (0-2); Eosinophils Absolute Auto 0.1 X10*3/uL (0.0-0.4); Eosinophils Percent Auto 1.6 % (0-4); Hematocrit 40.7 % (37.0-47.0); Hemoglobin 13.6 g/dl (12.0-16.0); Imm Gran Abs Auto 0.02 X10*3/uL (0.00-0.03); Imm Gran Pct Auto 0.3 % (0.0-0.4); Lymphocytes Absolute Auto 2.3 X10*3/uL (1.2-4.9); Lymphocytes Percent Auto 31.3 % (20-40); Mean Corpuscular HGB Conc 33.4 g/dl (31.0-35.0); Mean Corpuscular Hemoglobin 32.4 pg (27.0-33.0); Mean Corpuscular Volume 96.9 fL (80.0-98.0); Mean Platelet Volume 8.6 fL (9.4-12.3); Monocytes Absolute Auto 0.9 X10*3/uL (0.1-1.2); Neutrophils Absolute Auto 3.9 x10*3/uL (2.0-8.3); Neutrophils Percent Auto 53.6 % (45-73); Platelet Count 281 X10*3/uL (160-400); Red Cell Distribution Width 12.1 % (11.0-16.0); White Blood Count 7.3 X10*3/uL (4.8-10.8)
[2023-02-24 16:42] LABS: Alanine Aminotransferase 17 U/L (0-31); Albumin Level 4.4 g/dL (3.5-5.0); Alkaline Phosphatase 87 U/L (39-117); Anion Gap 13 (12-20); Aspartate Amino Transferase 21 U/L (5-31); Bilirubin Total 0.3 mg/dL (0.0-1.0); Blood Urea Nitrogen 8 mg/dL (9-16); Calcium 9.5 mg/dL (8.4-10.2); Carbon Dioxide 23 mmol/L (22-29); Chloride 100 mmol/L (96-108); Cholesterol 246 mg/dL (<200); Estimated Glomerular Filt Rate > 60; Glucose Fasting 87 mg/dL (60-99); HDL Cholesterol 113 mg/dL (>40); LDL Cholesterol Calculated 120 mg/dL (<100); Potassium 4.1 mmol/L (3.3-5.1); Sodium 132 mmol/L (135-145); Total Protein 6.7 g/dL (6.5-8.0); Triglycerides 65 mg/dL (<150)
[2023-02-24 16:46] LABS: TSH reflex Free T4 3.24 uIU/mL (0.32-4.0); Vitamin D 25-OH Total 54.8 ng/mL (>30)
[2023-02-24 16:58] LABS: Folate 16.2 ng/mL (> or = 4.0); Vitamin B12 459 pg/mL (200-900)
== END 2023-02-24 13:17 | disposition home or self-care (01) ==
LOC: HO.HMGCLDS 13:16
PROVIDERS: PCP Internal Medicine; Visit Provider Internal Medicine
DX: Z00.00 Encounter for general adult medical examination without abnormal findings (principal); E55.9 Vitamin D deficiency, unspecified; E78.5 Hyperlipidemia, unspecified; R71.8 Other abnormality of red blood cells
CPT/HCPCS: 36415; 80053; 80061; 82306; 82607; 82746; 84443; 85025

== ENCOUNTER 2023-03-02 13:57 | Outpatient (AMB) | payer OTHER, MEDICAID, SELFPAY ==
--- NOTE | 2023-03-02 14:06 | MHC.OFFVIS ---
Intake Vital Signs 03/02/23 14:08 Height 5 ft 1 in Weight 123 lb 0.287 oz BMI 23.2 BP 120/93 H Blood Pressure Location Rt brachial Position Sitting Pulse 86 Intake Visit Reasons: 6 month GERD,IBS Intake Note: Patient presents to in office visit today in 6 months follow up of IBS and celiac. CC: Patient reports doing about the same. Reports she has diarrhea every time she has a BM. Patient also reports she was having back spasms and was seen in the ER on 12/14/22. Denies other GI symptoms. Database Administration Manager Required: No Accompanied by: Self / Same As Patient Allergies lamotrigine [LAMOTRIGINE] Allergy (Severe, Verified 03/02/23 14:22) Rash sulfamethoxazole [From Septra] Allergy (Mild, Verified 03/02/23 14:22) Itching trimethoprim [From Febra] Allergy (Mild, Verified 03/02/23 14:22) Itching Sulfa (Sulfonamide Antibiotics) Allergy (Unknown, Verified 03/02/23 14:22) itchy HPI 6 month GERD,IBS HPI Details Assessment & Plan (1) Irritable bowel syndrome with both constipation and diarrhea: Code(s): K58.2 - Mixed irritable bowel syndrome Plan: She continues with her IBS, she has used bentyl twice since she last saw me, but when she needs it it works. She is eating more garlic and yeimy, tumeric and now is moving her bowels more than before. She has famotidine to use prn, and also uses peppermint for her IBS as well. She also takes senna and colace for CIC prn. . ROV 6 mos. (2) GERD (gastroesophageal reflux disease): Code(s): K21.9 - Gastro-esophageal reflux disease without esophagitis (3) Celiac disease: Code(s): K90.0 - Celiac disease (4) Family history of colon cancer in mother: Code(s): Z80.0 - Family history of malignant neoplasm of digestive organs Medications: Refilled dicyclomine 10 mg PO BID 180 caps 2RF for abdom inal pain K58.9 - Irritable bowel syndrome wit hout diarrhea famotidine (Pepcid ) 40 mg PO BEDTIME 30 days 60 tabs 6R F R10.13 - Epigastri c pain docusate sodium 100 mg PO BID 60 caps 6RF sennosides (Senna Laxative) 17.2 mg (2 x 8.6 m g) PO BEDTIME PRN 60 tabs 6RF consti patimayra K58.2 - Mixed irri table bowel syndro me TODAY'S VISIT She says December and January were bad months, she struggled with back spasms, tooth problems and a resolution to her court case. She still uses senna and colace and with this she has watery stools, but if she stops this she has CIC and feels worse. She has a lot of bloating and someone suggested the FODMAP diet. I print this for her. SHe says she is avoiding gluten completely. She has had stomach burning that was helped with famotidine. ROV 6 mos. PFSH Medical History Hyperlipidemia Bilateral thumb pain Lower back pain Diverticulosis Celiac disease Vitamin D deficiency Environmental allergies Mammogram declined Annual physical exam Bipolar 1 disorder GERD (gastroesophageal reflux disease) Surgical History Hx of hemorrhoidectomy History of tonsillectomy History of esophagogastroduodenoscopy (EGD) Hx of colonoscopy History of carpal tunnel release (~2019) Family History Mother Stomach problems Mental health disorder Father Heart problem Daughter Diabetes Other Bipolar 1 disorder Social History Household Members: Significant Other Housing: House Do you presently have visiting nurse or other home services: No Alcohol intake: current Alcohol intake frequency: 0-2 drinks per day Alcohol type: wine Patient Tobacco Use Status: Current someday Tobacco user Tobacco use type: Cigarette Cigarettes Per Day: 3 e-Cigarette/Vaping Use: Former Use Substance Use Type: Marijuana Advance Directives Date on File: 10/05/20 service: No Current occupational status: disabled Cognitive needs: No Hearing needs: No Vision needs: Yes Review of Systems Const Denies fatigue, Denies fever(s), Denies night sweats, Denies poor appetite and Denies weight loss Eyes Details: glasses Reports requires corrective lenses ENT Reports Normal hearing present, Denies dental pain, Denies dysphagia, Denies hearing loss, Denies mouth pain, Denies odynophagia, Denies throat swelling, Denies tongue swelling and Reports other (Dentition adequate) Card Reports no additional complaints Resp Reports no additional complaints GI Denies abdominal pain, Denies melena, Reports bloating, Denies hematochezia, Reports constipation, Denies GI cramping, Denies dysphagia, Denies excessive flatus, Denies early satiety, Reports heartburn, Reports diarrhea, Denies nausea, Denies odynophagia, Denies vomiting and Denies hematemesis Skin/Breast Denies pruritus, Denies lesions, Denies rash and Denies jaundice Neuro Reports Normal hearing present and Denies Abnormal speech present Endo Denies fatigue Aller/Immun Denies throat swelling and Denies tongue swelling Physical Exam Vital Signs: Last Vital Signs Pulse 86 03/02/23 14:08 BP 120/93 H 03/02/23 14:08 BMI result Body Mass Index 23.2 Const General: cooperative, no acute distress, well developed and well groomed Nutritional Appearance: average body habitus and well nourished Orientation/consciousness: oriented to person, oriented to place and oriented to time Limitations: No language barrier HEENT Head: Yes normocephalic and Yes atraumatic Eyes General: appearance normal, both eyes and all related structures Pupils: Equal, round and reactive pupils present Neck Neck: Yes normal visual inspection and Yes no lymphadenopathy Thyroid: Thyroid normal Resp Effort & Inspection: normal respiratory effort and able to speak in complete sentences Auscultation: clear to auscultation bilaterally Cardio Rate: regular rate Rhythm: regular rhythm Heart sounds: Normal, physiologic split S2 sound present Peripheral pulses: radial pulses present and posterior tibial pulses present GI Inspection: No distended and No Abdominal panniculus present Palpation (GI): Soft to palpation, nontender, no guarding, not rigid and No hepatosplenomegaly present Percussion: Yes normal to percussion Auscultation: normal bowel sounds Rectal Exam - Female: deferred Skin General skin exam: no rashes or lesions noted, turgor normal, skin not dry, no jaundice, No spider nevi and no striae Rashes: no rashes Nails: normal Neuro General: oriented to person, oriented to place and oriented to time Cranial nerves: Yes Equal, round and reactive pupils present and Yes Normal hearing present Speech: No Abnormal speech present Extrem General: Yes normal to inspection, No clubbing, No cyanosis and No edema Psych Appearance: grossly normal and well kempt Mental Status: mental status grossly normal Speech and movement: Normal speech and movement present Affect: normal affect Attitude: cooperative Thought process: Normal thought process present and not confabulating Thought content: Normal thought content present Insight: Fair insight present (Psych) Judgement: Fair judgement present (Psych) Assessment & Plan Assessment & Plan (1) Irritable bowel syndrome with both constipation and diarrhea: Code(s): K58.2 - Mixed irritable bowel syndrome Plan: She says December and January were bad months, she struggled with back spasms, tooth problems and a resolution to her court case. She still uses senna and colace and with this she has watery stools, but if she stops this she has CIC and feels worse. She has a lot of bloating and someone suggested the FODMAP diet. I print this for her. SHe says she is avoiding gluten completely. She has had stomach burning that was helped with famotidine. ROV 6 mos. (2) GERD (gastroesophageal reflux disease): Code(s): K21.9 - Gastro-esophageal reflux disease without esophagitis (3) Celiac disease: Code(s): K90.0 - Celiac disease Medications: Refilled dicyclomine 10 mg PO BID 180 caps 2RF for abdominal pain K58.9 - Irritable bowel syndrome without diarrhea famotidine (Pepcid) 40 mg PO BEDTIME 60 tabs 6RF 30 days R10.13 - Epigastric pain docusate sodium 100 mg PO BID 60 caps 6RF Coding Level of Care Code Est Pt Level 3 (16376) Diagnoses Irritable bowel syndrome with both constipation and diarrhea K58.2 GERD (gastroesophageal reflux disease) K21.9 Celiac disease K90.0
[2023-03-02 14:08] VITALS: BP 120/93; PULSE 86; BMI 23.2
== END 2023-03-02 14:38 | disposition home or self-care (01) ==
PROVIDERS: PCP Internal Medicine; Visit Provider Nurse Practitioner
DX: K58.2 Mixed irritable bowel syndrome (principal); K21.9 Gastro-esophageal reflux disease without esophagitis; K90.0 Celiac disease
CPT/HCPCS: 99213

== ENCOUNTER → 2023-03-02 13:57 | Outpatient (BNVA) | payer OTHER, MEDICAID, SELFPAY | PROVIDERS: PCP Internal Medicine; Visit Provider Nurse Practitioner | DX: K58.2 Mixed irritable bowel syndrome (principal); K21.9 Gastro-esophageal reflux disease without esophagitis; K90.0 Celiac disease | CPT/HCPCS: 99212 ==

== ENCOUNTER 2023-03-14 12:47 | Outpatient (REF) | payer OTHER, MEDICAID, SELFPAY | END 2023-03-14 12:48 | disposition home or self-care (01) | LOC: HO.HMGCLDS 12:47 | PROVIDERS: PCP Internal Medicine; Visit Provider Internal Medicine | DX: E87.1 Hypo-osmolality and hyponatremia (principal) | CPT/HCPCS: 36415; 80048 ==

== ENCOUNTER 2023-05-16 11:28 | Outpatient (REF) | payer OTHER, MEDICAID, SELFPAY ==
[2023-05-16 14:45] LABS: Sodium 139 mmol/L (135-145)
== END 2023-05-16 11:29 | disposition home or self-care (01) ==
LOC: HO.HMGCLDS 11:28
PROVIDERS: PCP Internal Medicine; Visit Provider Internal Medicine
DX: E87.1 Hypo-osmolality and hyponatremia (principal)
CPT/HCPCS: 36415; 84295

== ENCOUNTER 2023-08-31 12:56 | Outpatient (AMB) | payer OTHER, MEDICAID, SELFPAY ==
[2023-08-31 12:58] VITALS: BP 155/75; PULSE 68; BMI 23.0
--- NOTE | 2023-08-31 12:58 | A.OFFVIS_ITS ---
Intake Vital Signs 08/31/23 12:58 Height 5 ft 1 in Weight 121 lb 11.123 oz BMI 23.0 BP 155/75 H Blood Pressure Location Rt brachial Position Sitting Pulse 68 Intake Visit Reasons: 6 month follow up Intake Note: Patient presnts to in office visit today in 6 months follow up of IBS and celiac. CC: Patient reports having 2 episodes of being unable to poop one in July and the second one a few weeks ago. She reports having occasional sharp pain from mid lower abdomen. She is no longer taking stool softener or laxative and is trying to help her constipation with foods. Registered Radiation Therapist Required: No Accompanied by: Self / Same As Patient Allergies lamotrigine [LAMOTRIGINE] Allergy (Severe, Verified 08/31/23 13:03) Rash sulfamethoxazole [From Septra] Allergy (Mild, Verified 08/31/23 13:03) Itching trimethoprim [From Septra] Allergy (Mild, Verified 08/31/23 13:03) Itching Sulfa (Sulfonamide Antibiotics) Allergy (Unknown, Verified 08/31/23 13:03) itchy HPI 6 month follow up HPI Details Assessment & Plan (1) Irritable bowel syndrome with both c onstipation and diarrhea: Code(s): K58.2 - Mixed irritable bowel syndrome Plan: She says December and January were bad months, she struggled with back spasms, tooth problems and a resolution to her court case. She still uses senna and colace and with this she has watery stools, but if she stops this she has CIC and feels worse. She has a lot of bloating and someone suggested the FODMAP diet. I print this for her. She says she is avoiding gluten completely. She has had stomach burning that was helped with famotidine. ROV 6 mos. (2) GERD (gastroesophageal reflux diseas e): Code(s): K21.9 - Gastro-esophageal reflux disease without esophagitis (3) Celiac disease: Code(s): K90.0 - Celiac disease Medications: Refilled dicyclomine 10 mg PO BID 180 c aps 2RF for abdomi nal pain K58.9 - Irritable bowel syndrome wit hout diarrhea famotidine (Pepcid ) 40 mg PO BEDTIME 6 0 tabs 6RF 30 days R10.13 - Epigastri c pain docusate sodium 100 mg PO BID 60 c aps 6RF TODAY'S VISIT She stopped taking her senna and colace, then she had a severe episodes of CIC with abd pain and bloating, so she then bought dulcolax and took 4 - this caused her severe pain and sweating and she had to lay on her BR floor for a long time. Eventually, she passed some small amts of stool. She tried to change her diet, avoiding red meats and her GF bread and eating fish and salads but she still struggles with stooling. She got the idea that she should not take so much of the CIC meds, but I only wanted her to experiment with changing the amts taken to get more solid stooling instead of looser stools. She was taking colace 100mg bid, and senna 1 tab bid. We will go down to 1 senna qhs and 1 colace qhs and titrate as needed. She has had some worst heartburn which is to be expected with severe constipation and is requesting a refill of her famotidine which will be given. Return office visit in 4 weeks [facility] Medical History Celiac disease Hyperlipidemia Bilateral thumb pain Lower back pain Diverticulosis Vitamin D deficiency Environmental allergies Mammogram declined Annual physical exam Bipolar 1 disorder GERD (gastroesophageal reflux disease) Surgical History Hx of hemorrhoidectomy History of tonsillectomy History of esophagogastroduodenoscopy (EGD) Hx of colonoscopy History of carpal tunnel release (~2019) Family History Mother Stomach problems Mental health disorder Father Heart problem Daughter Diabetes Other Bipolar 1 disorder Social History Household Members: Significant Other Housing: House Do you presently have visiting nurse or other home services: No Alcohol intake: current Alcohol intake frequency: 0-2 drinks per day Alcohol type: wine Patient Tobacco Use Status: Current someday Tobacco user Tobacco use type: Cigarette Cigarettes Per Day: 3 e-Cigarette/Vaping Use: Former Use Substance Use Type: Marijuana Advance Directives Date on File: 10/05/20 service: No Current occupational status: disabled Cognitive needs: No Hearing needs: No Vision needs: Yes Review of Systems Const Denies fatigue, Denies fever(s), Denies night sweats, Denies poor appetite and Denies weight loss Eyes Details: glasses Reports requires corrective lenses ENT Reports Normal hearing present, Denies dental pain, Denies dysphagia, Denies hearing loss, Denies mouth pain, Denies odynophagia, Denies throat swelling, Denies tongue swelling and Reports other (Dentition adequate) Card Reports no additional complaints Resp Reports no additional complaints GI Details: Reports abdominal pain, Denies melena, Reports bloating, Denies hematochezia, Reports constipation, Denies GI cramping, Denies dysphagia, Denies excessive flatus, Denies early satiety, Reports heartburn, Denies diarrhea, Denies nausea, Denies odynophagia, Denies vomiting and Denies hematemesis Skin/Breast Denies pruritus, Denies lesions, Denies rash and Denies jaundice Neuro Reports Normal hearing present and Denies Abnormal speech present Endo Denies fatigue Aller/Immun Denies throat swelling and Denies tongue swelling Physical Exam Vital Signs: Last Vital Signs Pulse 68 08/31/23 12:58 BP 155/75 H 08/31/23 12:58 BMI result Body Mass Index 23.0 Const General: cooperative, no acute distress, well developed and well groomed Nutritional Appearance: average body habitus and well nourished Orientation/consciousness: oriented to person, oriented to place and oriented to time Limitations: No language barrier HEENT Head: Yes normocephalic and Yes atraumatic Eyes General: appearance normal, both eyes and all related structures Pupils: Equal, round and reactive pupils present Neck Neck: Yes normal visual inspection and Yes no lymphadenopathy Thyroid: Thyroid normal Resp Effort & Inspection: normal respiratory effort and able to speak in complete sentences Auscultation: clear to auscultation bilaterally Cardio Rate: regular rate Rhythm: regular rhythm Heart sounds: Normal, physiologic split S2 sound present Peripheral pulses: radial pulses present and posterior tibial pulses present GI Inspection: No distended and No Abdominal panniculus present Palpation (GI): Soft to palpation, nontender, no guarding, not rigid and No hepatosplenomegaly present Percussion: Yes normal to percussion Auscultation: normal bowel sounds Rectal Exam - Female: deferred Skin General skin exam: no rashes or lesions noted, turgor normal, skin not dry, no jaundice, No spider nevi and no striae Rashes: no rashes Nails: normal Neuro General: oriented to person, oriented to place and oriented to time Cranial nerves: Yes Equal, round and reactive pupils present and Yes Normal hearing present Speech: No Abnormal speech present Extrem General: Yes normal to inspection, No clubbing, No cyanosis and No edema Psych Appearance: grossly normal and well kempt Mental Status: mental status grossly normal Speech and movement: Normal speech and movement present Affect: normal affect Attitude: cooperative Thought process: Normal thought process present and not confabulating Thought content: Normal thought content present Insight: Limited insight present (Psych) Judgement: Limited judgement present (Psych) Assessment & Plan Assessment & Plan (1) Irritable bowel syndrome with both constipation and diarrhea: Code(s): K58.2 - Mixed irritable bowel syndrome (2) GERD (gastroesophageal reflux disease): Code(s): K21.9 - Gastro-esophageal reflux disease without esophagitis (3) Celiac disease: Code(s): K90.0 - Celiac disease Plan She stopped taking her senna and colace, then she had a severe episodes of CIC with abd pain and bloating, so she then bought dulcolax and took 4 - this caused her severe pain and sweating and she had to lay on her BR floor for a long time. Eventually, she passed some small amts of stool. She tried to change her diet, avoiding red meats and her GF bread and eating fish and salads but she still struggles with stooling. She got the idea that she should not take so much of the CIC meds, but I only wanted her to experiment with changing the amts taken to get more solid stooling instead of looser stools. She was taking colace 100mg bid, and senna 1 tab bid. We will go down to 1 senna qhs and 1 colace qhs and titrate as needed. She has had some worst heartburn which is to be expected with severe constipation and is requesting a refill of her famotidine which will be given. Return office visit in 4 weeks Medications: Changed From docusate sodium 100 mg PO BID 60 caps 6RF To docusate sodium 100 mg PO BEDTIME 60 caps 6RF Refilled sennosides (Senna Laxative) 17.2 mg (2 x 8.6 mg) PO BEDTIME PRN 60 tabs 6RF constipation K58.2 - Mixed irritable bowel syndrome famotidine (Pepcid) 40 mg PO BEDTIME 30 days 60 tabs 6RF R10.13 - Epigastric pain Coding Level of Care Code Est Pt Level 3 (84453) Diagnoses Irritable bowel syndrome with both constipation and diarrhea K58.2 GERD (gastroesophageal reflux disease) K21.9 Celiac disease K90.0
== END 2023-08-31 13:30 | disposition home or self-care (01) ==
PROVIDERS: PCP Internal Medicine; Visit Provider Nurse Practitioner
DX: K58.2 Mixed irritable bowel syndrome (principal); K21.9 Gastro-esophageal reflux disease without esophagitis; K90.0 Celiac disease
CPT/HCPCS: 99213

== ENCOUNTER → 2023-08-31 12:56 | Outpatient (BNVA) | payer OTHER, MEDICAID, SELFPAY | PROVIDERS: PCP Internal Medicine; Visit Provider Nurse Practitioner | DX: K58.2 Mixed irritable bowel syndrome (principal); K21.9 Gastro-esophageal reflux disease without esophagitis; K90.0 Celiac disease | CPT/HCPCS: 99212 ==

== ENCOUNTER 2023-10-05 12:24 | Outpatient (AMB) | payer MEDICARE, MEDICAID, SELFPAY ==
--- NOTE | 2023-10-05 12:27 | MHC.OFFVIS ---
Vital Signs 10/05/23 12:31 Height 5 ft 1 in Weight 119 lb 14.903 oz BMI 22.7 BP 149/80 H Blood Pressure Location Rt brachial Position Sitting Pulse 79 Intake Visit Reasons: 4 week follow up GERD Intake Note: Patient in office today in follow up of celiac disease. CC: Patient reports that after getting back on the senna and laxatives and she is doing better. Case Resolution Specialist Required: No Accompanied by: Self / Same As Patient Allergies lamotrigine [LAMOTRIGINE] Allergy (Severe, Verified 10/05/23 12:39) Rash sulfamethoxazole [From Septra] Allergy (Mild, Verified 10/05/23 12:39) Itching trimethoprim [From Septra] Allergy (Mild, Verified 10/05/23 12:39) Itching Sulfa (Sulfonamide Antibiotics) Allergy (Unknown, Verified 10/05/23 12:39) itchy HPI HPI 4 week follow up GERD: Details: Assessment & Plan (1) Irritable bowel syndrome with both constipation and diarrhea: Code(s): K58.2 - Mixed irritable bowel syndrome (2) GERD (gastroesophageal reflux disease): Code(s): K21.9 - Gastro-esophageal reflux disease without esophagitis (3) Celiac disease: Code(s): K90.0 - Celiac disease Plan She stopped taking her senna and colace, then she had a severe episodes of CIC with abd pain and bloating, so she then bought dulcolax and took 4 - this caused her severe pain and sweating and she had to lay on her BR floor for a long time. Eventually, she passed some small amts of stool. She tried to change her diet, avoiding red meats and her GF bread and eating fish and salads but she still struggles with stooling. She got the idea that she should not take so much of the CIC meds, but I only wanted her to experiment with changing the amts taken to get more solid stooling instead of looser stools. She was taking colace 100mg bid, and senna 1 tab bid. We will go down to 1 senna qhs and 1 colace qhs and titrate as needed. She has had some worst heartburn which is to be expected with severe constipation and is requesting a refill of her famotidine which will be given. Return office visit in 4 weeks Medications: Changed From docusate sodium 100 mg PO BID 60 caps 6RF To docusate sodium 100 mg PO BEDTIME 60 caps 6RF Refilled sennosides (Senna Laxative) 17.2 mg (2 x 8.6 mg) PO BEDTIME PRN 60 tabs 6RF constipation K58.2 - Mixed irritable bowel syndrome famotidine (Pepcid) 40 mg PO BEDTIME 30 days 60 tabs 6RF R10.13 - Epigastric pain TODAY'S VISIT She is taking the colace daily and then the senna on the third day. This seems to be controlling her stooling. Her only complaint is that she is always hungry. She has been more active recently, and she is not gaining weight....so she likely just needs a higher calorie intake. Her GERD is tied to her CIC cycles. She has famotidine for breakthrough. I suggest she may need to take the senna more regularly like qod. She will try this. ROV 6 mos. PFS Medical History Celiac disease Hyperlipidemia Bilateral thumb pain Lower back pain Diverticulosis Vitamin D deficiency Environmental allergies Mammogram declined Annual physical exam Bipolar 1 disorder GERD (gastroesophageal reflux disease) Surgical History Hx of hemorrhoidectomy History of tonsillectomy History of esophagogastroduodenoscopy (EGD) Hx of colonoscopy History of carpal tunnel release (~2019) Family History Mother Stomach problems Mental health disorder Father Heart problem Daughter Diabetes Other Bipolar 1 disorder Social History Household Members: Significant Other Housing: House Do you presently have visiting nurse or other home services: No Alcohol intake: current Alcohol intake frequency: 0-2 drinks per day Alcohol type: wine Patient Tobacco Use Status: Current someday Tobacco user Tobacco use type: Cigarette Cigarettes Per Day: 3 e-Cigarette/Vaping Use: Former Use Substance Use Type: Marijuana Advance Directives Date on File: 10/05/20 service: No Current occupational status: disabled Cognitive needs: No Hearing needs: No Vision needs: Yes Review of Systems Const Denies fatigue, Denies fever(s), Denies night sweats, Denies poor appetite and Denies weight loss Eyes Details: glasses Reports requires corrective lenses ENT Reports Normal hearing present, Denies dental pain, Denies dysphagia, Denies hearing loss, Denies mouth pain, Denies odynophagia, Denies throat swelling, Denies tongue swelling and Reports other (Dentition adequate) Card Reports no additional complaints Resp Reports no additional complaints GI Details: Denies abdominal pain, Denies melena, Denies bloating, Denies hematochezia, Reports constipation, Denies GI cramping, Denies dysphagia, Denies excessive flatus, Denies early satiety, Reports heartburn, Denies diarrhea, Denies nausea, Denies odynophagia, Denies vomiting and Denies hematemesis Skin/Breast Denies pruritus, Denies lesions, Denies rash and Denies jaundice Neuro Reports Normal hearing present and Denies Abnormal speech present Endo Denies fatigue Aller/Immun Denies throat swelling and Denies tongue swelling Physical Exam Vital Signs: Last Vital Signs Pulse 79 10/05/23 12:31 BP 149/80 H 10/05/23 12:31 BMI result Body Mass Index 22.7 Const General: cooperative, no acute distress, well developed and well groomed Nutritional Appearance: average body habitus and well nourished Orientation/consciousness: oriented to person, oriented to place and oriented to time Limitations: No language barrier HEENT Head: Yes normocephalic and Yes atraumatic Eyes General: appearance normal, both eyes and all related structures Pupils: Equal, round and reactive pupils present Neck Neck: Yes normal visual inspection and Yes no lymphadenopathy Thyroid: Thyroid normal Resp Effort & Inspection: normal respiratory effort and able to speak in complete sentences Auscultation: clear to auscultation bilaterally Cardio Rate: regular rate Rhythm: regular rhythm Heart sounds: Normal, physiologic split S2 sound present Peripheral pulses: radial pulses present and posterior tibial pulses present GI Inspection: No distended and No Abdominal panniculus present Palpation (GI): Soft to palpation, nontender, no guarding, not rigid and No hepatosplenomegaly present Percussion: Yes normal to percussion Auscultation: normal bowel sounds Rectal Exam - Female: deferred Skin General skin exam: no rashes or lesions noted, turgor normal, skin not dry, no jaundice, No spider nevi and no striae Rashes: no rashes Nails: normal Neuro General: oriented to person, oriented to place and oriented to time Cranial nerves: Yes Equal, round and reactive pupils present and Yes Normal hearing present Speech: No Abnormal speech present Extrem General: Yes normal to inspection, No clubbing, No cyanosis and No edema Psych Appearance: grossly normal and well kempt Mental Status: mental status grossly normal Speech and movement: Normal speech and movement present Affect: normal affect Attitude: cooperative Thought process: Normal thought process present and not confabulating Thought content: Normal thought content present Insight: Fair insight present (Psych) and Limited insight present (Psych) Judgement: Fair judgement present (Psych) and Limited judgement present (Psych) Assessment & Plan Assessment & Plan (1) Irritable bowel syndrome with both constipation and diarrhea: Code(s): K58.2 - Mixed irritable bowel syndrome Category: Medical (2) Celiac disease: Code(s): K90.0 - Celiac disease Category: Medical (3) GERD (gastroesophageal reflux disease): Code(s): K21.9 - Gastro-esophageal reflux disease without esophagitis Category: Medical Plan She is taking the colace daily and then the senna on the third day. This seems to be controlling her stooling. Her only complaint is that she is always hungry. She has been more active recently, and she is not gaining weight....so she likely just needs a higher calorie intake. Her GERD is tied to her CIC cycles. She has famotidine for breakthrough. I suggest she may need to take the senna more regularly like qod. She will try this. ROV 6 mos. Coding Level of Care Code Est Pt Level 3 (50958) Diagnoses Irritable bowel syndrome with both constipation and diarrhea K58.2 Celiac disease K90.0 GERD (gastroesophageal reflux disease) K21.9
[2023-10-05 12:31] VITALS: BP 149/80; PULSE 79; BMI 22.7
== END 2023-10-05 13:05 | disposition home or self-care (01) ==
PROVIDERS: PCP Internal Medicine; Visit Provider Nurse Practitioner
DX: K58.2 Mixed irritable bowel syndrome (principal); K90.0 Celiac disease; K21.9 Gastro-esophageal reflux disease without esophagitis
CPT/HCPCS: 99213

== ENCOUNTER → 2023-10-05 12:24 | Outpatient (BNVA) | payer MEDICARE, MEDICAID, SELFPAY | PROVIDERS: PCP Internal Medicine; Visit Provider Nurse Practitioner | DX: K58.2 Mixed irritable bowel syndrome (principal); K90.0 Celiac disease; K21.9 Gastro-esophageal reflux disease without esophagitis | CPT/HCPCS: 99212 ==

== ENCOUNTER 2024-01-10 12:40 | Outpatient (AMB) | payer MEDICARE, MEDICAID, SELFPAY ==
[2024-01-10 12:54] VITALS: BP 138/76; PULSE 88; O2SAT 98; BMI 21.3
--- NOTE | 2024-01-10 12:54 | A.OFFPC_ITS ---
Vital Signs 01/10/24 12:54 Height 5 ft 1 in Weight 113 lb BMI 21.3 BP 138/76 Blood Pressure Location Rt brachial Position Sitting Pulse 88 Pulse Source Pulse Oximeter Pulse Oximetry (%) 98 Oxygen Delivery Method Room Air Intake Visit Reasons: I think I have an infection Hot night sweats that Intake Note: Pt is here today for a sick visit. Pt has multiple concerns. Pt states that her chest pederson not feel comfortable. Allergies lamotrigine [LAMOTRIGINE] Allergy (Severe, Verified 01/10/24 13:12) Rash sulfamethoxazole [From Septra] Allergy (Mild, Verified 01/10/24 13:12) Itching trimethoprim [From Septra] Allergy (Mild, Verified 01/10/24 13:12) Itching Sulfa (Sulfonamide Antibiotics) Allergy (Unknown, Verified 01/10/24 13:12) itchy Medication List - Last Reconciled 01/10/24 by Carlyn Azul MD buspirone 30 mg PO BID carbamazepine 300 mg PO TID dicyclomine 10 mg PO BID docusate sodium 100 mg PO BEDTIME estradiol 0.01%(0.1mg/gram) pea size to urethral os vaginally daily; for 14 days famotidine (Pepcid) 40 mg PO BEDTIME 30 days lorazepam 1 mg PO DAILY PRN sennosides (Senna Laxative) 17.2 mg (2 x 8.6 mg) PO BEDTIME PRN Tobacco use date assessed: 01/10/24 Dental Screening Dental Screen Date: 01/10/24 Did you have a dental visit in the last 12 months?: Yes Did you have a dental problem in the last 6 months where you did not have access to dental care?: No Was dental information given to patient?: Patient has dentist HPI I think I have an infection Hot night sweats that HPI Details Pt had an episode of feeling hot and sweaty, whole body tingling, lightheaded lasted a few hours 2 weeks ago. Pt c/o strong odor of her urine occasionally and some burning when urinating. She denies incontinence back pain nausea vomiting fever chills [facility] Medical History (Updated 01/10/24 @ 15:33 by Carlyn Azul MD) Candidiasis of mouth and esophagus Celiac disease Hyperlipidemia Bilateral thumb pain Lower back pain Diverticulosis Vitamin D deficiency Environmental allergies Mammogram declined Annual physical exam Bipolar 1 disorder GERD (gastroesophageal reflux disease) Surgical History Hx of hemorrhoidectomy History of tonsillectomy History of esophagogastroduodenoscopy (EGD) Hx of colonoscopy History of carpal tunnel release (~2019) Family History Mother Stomach problems Mental health disorder Father Heart problem Daughter Diabetes Other Bipolar 1 disorder Social History Household Members: Significant Other Housing: House Do you presently have visiting nurse or other home services: No Alcohol intake: current Alcohol intake frequency: 0-2 drinks per day Alcohol type: wine Patient Tobacco Use Status: Current someday Tobacco user Tobacco use type: Cigarette Cigarettes Per Day: 3 e-Cigarette/Vaping Use: Former Use Substance Use Type: Marijuana Advance Directives Date on File: 10/05/20 service: No Current occupational status: disabled Cognitive needs: No Hearing needs: No Vision needs: Yes Questionnaire PHQ-9 Over the last 2 weeks, how often have you been bothered by any of the following problems? 1. Little interest or pleasure in doing things: nearly every day 2. Feeling down, depressed, or hopeless: not at all 3. Trouble falling or staying asleep, or sleeping too much: more than half the days 4. Feeling tired or having little energy: more than half the days 5. Poor appetite or overeating: nearly every day 6. Feeling bad about yourself - or that you are a failure or have let yourself or your family down: not at all 7. Trouble concentrating on things, such as reading the newspaper or watching television: more than half the days 8. Moving or speaking so slowly that other people could have noticed. Or the opposite - being so fidgety or restless that you have been moving around a lot more than usual: more than half the days 9. Thoughts that you would be better off or of hurting yourself in some way: not at all Total score: 14 Depression Screening Interpretation: Positive (Patient is established with psychiatrist and psychology) Depression Screening Follow-up: Existing condition and In treatment Depression Screening Done: Yes Source: Developed by Drs. Patel Lopez, Leslie Stevens, Alphonse Michael and colleagues, with an educational merlin from [employer]. Thrive Questionnaire Date Thrive assessed: 01/10/24 I am a: Patient What is your living situation today?: I have a steady place to live Within the past 12 months, did the food you bought not last and you didn't have the money to get more?: Never true Within the past 12 months, did you worry whether your food would run out before you got money to buy more?: Never true Do you have trouble paying for medicines?: No Do you have trouble getting transportation to medical appointments?: No Do you have trouble paying your heating and electricity bill?: No Do you have trouble taking care of your child, family member or friend?: No Do you have trouble with day-to-day activities such as bathing, preparing meals, shopping, managing finances, etc.?: No Are you currently unemployed and looking for a job?: No Are you interested in more education?: No Please select the resources that you would like help with: Housing/Senior Living Currently or been in a relationship where the following occur: No concerns reported THRIVE Score: 0 AUDIT C Alcohol Use Questionnaire (AUDIT-C) 1. How often do you have a drink containing alcohol?: 2-3 times a week 2. How many drinks containing alcohol do you have on a typical day when you are drinking?: 1 or 2 3. How often do you have six or more drinks on one occasion?: Never Total Score: 3 PAVEL-7 AMB Questionnaire PAVEL-7 Date PAVEL - 7 assessed: 01/10/24 Feeling nervous, anxious, or on edge: 1 = Several days Not being able to stop or control worryin = Several days Worrying too much about different things: 1 = Several days Trouble relaxin = Several days Being so restless that it is hard to sit still: 1 = Several days Becoming easily annoyed or irritable: 1 = Several days Feeling afraid as if something awful might happen: 0 = Not at all Total PAVEL-7 score (0-4 normal; 5-9 mild; 10-14 moderate; 15-21 severe): 6 Source: Developed by Leslie Marie Kurt Kroenke and colleagues, with an educational merlin from [employer]. Review of Systems Const All systems reviewed & are unremarkable except as noted in HPI and below ENT Reports no additional complaints Card Reports no additional complaints Resp Reports no additional complaints GI Reports no additional complaints Reports no additional complaints Physical exam (Primary Care) Vital Signs: Last Vital Signs Pulse 88 01/10/24 12:54 BP 138/76 01/10/24 12:54 Pulse Ox 98 01/10/24 12:54 Oxygen Delivery Method Room Air 01/10/24 12:54 BMI result Body Mass Index 21.3 Tobacco/Smoking Status: Tobacco use Status Tobacco use date assessed 01/10/24 01/10/24 13:16 Patient Tobacco Use Status Current someday Tobacco 01/10/24 12:54 Tobacco use type Cigarette 01/10/24 12:54 e-Cigarette/Vaping Use Former Use 01/10/24 12:54 PHQ-9: PHQ-9 Score PHQ-9: Total score 14 01/10/24 13:16 Depression Screening Interpretation: Positive (Patient is established with psychiatrist and psychology) Depression Screening Follow-up: Existing condition and In treatment Thrive Assessment: Date of Thrive Assessment Date Thrive assessed 01/10/24 01/10/24 13:16 Currently or been in a relationship where the following occur: No concerns reported Const General: comfortable HENMT Head: Yes normal to inspection Face and sinus: Yes normal facial exam Throat: Yes posterior oropharynx normal Resp Effort & Inspection: normal respiratory effort Auscultation: clear to auscultation bilaterally Cardio Rhythm: regular rhythm Heart sounds: S1 normal heart sound present and S2 normal heart sound present GI Inspection: Yes normal to inspection Palpation (GI): Soft to palpation Percussion: Yes normal to percussion Auscultation: normal bowel sounds Assessment and Plan Assessment & Plan (1) Vitamin D deficiency: Code(s): E55.9 - Vitamin D deficiency, unspecified Plan: Continue vitamin-D supplement (2) Vasovagal episode: Code(s): R55 - Syncope and collapse Plan: Supportive care discussed with the patient. She will return for fasting blood work (3) UTI (urinary tract infection): Code(s): N39.0 - Urinary tract infection, site not specified Qualifiers: Hematuria presence: with hematuria Urinary tract infection type: acute cystitis Qualified Code(s): N30.01 - Acute cystitis with hematuria Plan: Check UA and urine culture. Low-dose of estradiol vaginal cream to apply to urethral os will be tried (4) Bipolar 1 disorder: Comment: f/u with psychiatry Code(s): F31.9 - Bipolar disorder, unspecified Plan: Follow-up with psychiatry Orders: Orders TSH reflex Free T4 Today E55.9 - Vitamin D deficiency, unspecified, Z00.00 - Encounter for general adult medical examination without abnormal findings Lipid Panel Today E55.9 - Vitamin D deficiency, unspecified, Z00.00 - Encounter for general adult medical examination without abnormal findings Urine Culture Today E55.9 - Vitamin D deficiency, unspecified, Z00.00 - Encounter for general adult medical examination without abnormal findings C Reactive Protein Today E55.9 - Vitamin D deficiency, unspecified, Z00.00 - Encounter for general adult medical examination without abnormal findings Comprehensive Barnhart. Panel Fast Today E55.9 - Vitamin D deficiency, unspecified, Z00.00 - Encounter for general adult medical examination without abnormal findings Complete Blood Count Auto Diff Today E55.9 - Vitamin D deficiency, unspecified, Z00.00 - Encounter for general adult medical examination without abnormal findings UA w Microscopic Today E55.9 - Vitamin D deficiency, unspecified, Z00.00 - Encounter for general adult medical examination without abnormal findings Medications: New estradiol 0.01%(0.1mg/gram) pea size to urethral os vaginally daily; for 14 days 42.5 grams 2RF Coding Level of Care Code Est Pt Level 3 (03281) Diagnoses Vitamin D deficiency E55.9 Vasovagal episode R55 UTI (urinary tract infection) N30.01 Hematuria presence: with hematuria Urinary tract infection type: acute cystitis Bipolar 1 disorder F31.9
== END 2024-01-10 14:37 | disposition home or self-care (01) ==
PROVIDERS: PCP Internal Medicine; Visit Provider Internal Medicine
DX: E55.9 Vitamin D deficiency, unspecified (principal); R55 Syncope and collapse; N30.01 Acute cystitis with hematuria; F31.9 Bipolar disorder, unspecified
CPT/HCPCS: 99213

== ENCOUNTER 2024-02-26 08:58 | Outpatient (AMB) | payer MEDICARE, MEDICAID, SELFPAY ==
[2024-02-26 09:10] VITALS: BP 138/92; PULSE 91; TEMP 36.5; O2SAT 99; BMI 22.5
--- NOTE | 2024-02-26 09:10 | MHC.OFFWIV ---
Intake Vital Signs 02/26/24 09:10 Height 5 ft 1 in Weight 119 lb BMI 22.5 BP 138/92 H Blood Pressure Location Rt brachial Position Sitting Pulse 91 Pulse Source Pulse Oximeter Temp 97.7 F Temp Source Oral Pulse Oximetry (%) 99 Oxygen Delivery Method Room Air Intake Visit Reasons: EP injury ? strum Intake Note: pt c/o sternum injury. ? Popped on Patient Tobacco Use Status: Current someday Tobacco user Allergies lamotrigine [LAMOTRIGINE] Allergy (Severe, Verified 02/26/24 09:10) Rash sulfamethoxazole [From Septra] Allergy (Mild, Verified 02/26/24 09:10) Itching trimethoprim [From Septra] Allergy (Mild, Verified 02/26/24 09:10) Itching Sulfa (Sulfonamide Antibiotics) Allergy (Unknown, Verified 02/26/24 09:10) itchy Do you need a note to return to daycare/school/sports/work: No HPI EP injury ? strum HPI Details This note is constructed using voice recognition software. While every effort has been made to ensure accuracy, district commercial superintendent errors may have been included. The patient is a 58 year old female who presents to the clinic today with sternal pain since . She notes that she was carrying a case of soda on when she felt a sensation in her sternum. She had pain since that time. She denies shortness of breath, fever, chills, cough, bruising to the area. She notes that she has tried heat and ice with some effects and then tried her back brace for a compressing of the area which seemed to help best. She denies any chest pain, palpitations. [facility] Medical History (Updated 01/10/24 @ 15:33 by Carlyn Azul MD) Candidiasis of mouth and esophagus Celiac disease Hyperlipidemia Bilateral thumb pain Lower back pain Diverticulosis Vitamin D deficiency Environmental allergies Mammogram declined Annual physical exam Bipolar 1 disorder GERD (gastroesophageal reflux disease) Surgical History Hx of hemorrhoidectomy History of tonsillectomy History of esophagogastroduodenoscopy (EGD) Hx of colonoscopy History of carpal tunnel release (~2019) Family History Mother Stomach problems Mental health disorder Father Heart problem Daughter Diabetes Other Bipolar 1 disorder Social History Household Members: Significant Other Housing: House Do you presently have visiting nurse or other home services: No Alcohol intake: current Alcohol intake frequency: 0-2 drinks per day Alcohol type: wine Patient Tobacco Use Status: Current someday Tobacco user Tobacco use type: Cigarette Cigarettes Per Day: 3 e-Cigarette/Vaping Use: Former Use Substance Use Type: Marijuana Advance Directives Date on File: 10/05/20 service: No Current occupational status: disabled Cognitive needs: No Hearing needs: No Vision needs: Yes Review of Systems Const All systems reviewed & are unremarkable except as noted in HPI and below Physical Exam Vital Signs: Last Vital Signs Temp 97.7 F 02/26/24 09:10 Pulse 91 02/26/24 09:10 BP 138/92 H 02/26/24 09:10 Pulse Ox 99 02/26/24 09:10 Oxygen Delivery Method Room Air 02/26/24 09:10 BMI result Body Mass Index 22.5 Const General: cooperative, healthy appearing, comfortable, no acute distress and alert Orientation/consciousness: patient oriented x3 Limitations: no limitations Neck Neck: Yes normal visual inspection, Yes full ROM and Yes no lymphadenopathy Chest Other: Chest wall symmetric Chest palpation & inspection: normal inspection of the chest and no crepitus Resp Effort & Inspection: normal respiratory effort and able to speak in complete sentences Auscultation: clear to auscultation bilaterally Cardio Jugular venous distension: no JVD Palpation: normal PMI Rate: regular rate Heart sounds: S1 normal heart sound present, S2 normal heart sound present, no click, no gallops, no murmurs and no rubs Skin General skin exam: no rashes or lesions noted, elasticity normal and turgor normal Neuro General: patient oriented x3 Psych Appearance: grossly normal Mental Status: mental status grossly normal Speech and movement: Normal speech and movement present Affect: normal affect Assessment & Plan Assessment & Plan (1) Mid sternal chest pain: Code(s): R07.89 - Other chest pain Plan: Patient with pain after direct injury to the area, reassuring physical examination today. X-ray today to evaluate for injury level. Advised NSAIDs for pain management. Advised follow up with worsening symptoms or failure to resolve. Advised patient that she may follow with primary care provider if imaging is positive for fracture. Anticipate to call patient with results when available. Plan See above for full details and plan. Orders: Orders XR chest 2V Today R07.89 - Other chest pain Coding Level of Care Code Est Pt Level 4 (46876) Diagnoses Mid sternal chest pain R07.89
== END 2024-02-26 09:41 | disposition home or self-care (01) ==
PROVIDERS: PCP Internal Medicine; Visit Provider Registered Nurse
DX: R07.89 Other chest pain (principal)

== ENCOUNTER → 2024-02-26 08:58 | Outpatient (BNVA) | payer MEDICARE, MEDICAID, SELFPAY | PROVIDERS: PCP Internal Medicine ==

== ENCOUNTER 2024-02-26 09:36 | Outpatient (REF) | payer MEDICARE, MEDICAID, SELFPAY ==
--- NOTE | ~2024-02-26 | XR_ITS ---
EXAMINATION: XR CHEST CLINICAL INFORMATION: Chest pain. COMPARISON: 03/09/2018. TECHNIQUE: 2 views of the chest were obtained. FINDINGS: The lungs are well-inflated. There is no gross pneumothorax. Heart size is normal. Mild rightward curvature of the thoracic spine with degenerative changes. Possible trace bilateral pleural effusions. No focal consolidation. XR/XR chest 2V IMPRESSION: Possible trace bilateral pleural effusions. No focal consolidation. This study was presented today February 26, 2024 for interpretation. Stat results provided at this time as requested by referring provider. Electronically signed by: Mohini Clements MD 02/26/2024 11:14 AM EDT
[2024-02-26 13:29] LABS: MANUAL DIFF FLAG NO
[2024-02-26 13:37] LABS: Appearance Urine Clear; Color Urine Yellow; Glucose Urine UA Negative (Negative); Leukocyte Esterase Urine Negative (Negative); Nitrite Urine Negative (Negative); PH 6.5 (5.0-9.0); Urine Blood Negative (Negative); Urine Ketones Negative (Negative); Urine Protein Negative (Neg-Trace)
[2024-02-26 13:38] LABS: Basophils Absolute Auto 0.1 X10*3/uL (0.0-0.2); Basophils Percent Auto 1.1 % (0-2); Eosinophils Absolute Auto 0.1 X10*3/uL (0.0-0.4); Hematocrit 41.3 % (37.0-47.0); Hemoglobin 14.1 g/dl (12.0-16.0); Imm Gran Abs Auto 0.03 X10*3/uL (0.00-0.03); Imm Gran Pct Auto 0.4 % (0.0-0.4); Lymphocytes Absolute Auto 1.7 X10*3/uL (1.2-4.9); Lymphocytes Percent Auto 23.3 % (20-40); Mean Corpuscular HGB Conc 34.1 g/dl (31.0-35.0); Mean Corpuscular Hemoglobin 33.1 pg (27.0-33.0); Mean Corpuscular Volume 96.9 fL (80.0-98.0); Mean Platelet Volume 8.4 fL (9.4-12.3); Monocytes Absolute Auto 0.9 X10*3/uL (0.1-1.2); Monocytes Percent Auto 13.2 % (2-11); Neutrophils Absolute Auto 4.3 x10*3/uL (2.0-8.3); Platelet Count 299 X10*3/uL (160-400); Red Blood Count 4.26 X10*6/uL (4.20-5.50); White Blood Count 7.1 X10*3/uL (4.8-10.8)
[2024-02-26 14:00] LABS: Bacteria Urine None Seen (None Seen); Hyaline Casts Urine 0-2 /LPF (0-2); RBC Urine 0-2 /HPF (0-2); Squamous Epithelial Cell Urine 0-2 /HPF (0-2); WBC Urine 0-5 /HPF (0-5)
[2024-02-26 14:10] LABS: Alanine Aminotransferase 30 U/L (0-31); Albumin Level 4.4 g/dL (3.5-5.0); Alkaline Phosphatase 111 U/L (39-117); Anion Gap 11 (12-20); Aspartate Amino Transferase 27 U/L (5-31); Bilirubin Total 0.4 mg/dL (0.0-1.0); Blood Urea Nitrogen 8 mg/dL (9-16); C Reactive Protein 0.31 mg/dL (< or = 0.50); Calcium 9.7 mg/dL (8.4-10.2); Carbon Dioxide 27 mmol/L (22-29); Chloride 98 mmol/L (96-108); Cholesterol 230 mg/dL (<200); Estimated Glomerular Filt Rate > 60; Glucose Fasting 91 mg/dL (60-99); HDL Cholesterol 106 mg/dL (>40); LDL Cholesterol Calculated 113 mg/dL (<100); Sodium 132 mmol/L (135-145); Total Protein 6.8 g/dL (6.5-8.0); Triglycerides 55 mg/dL (<150)
[2024-02-26 14:29] LABS: TSH reflex Free T4 3.43 uIU/mL (0.32-4.0)
== END 2024-02-26 09:37 | disposition home or self-care (01) ==
LOC: HO.HMGCX 09:36
PROVIDERS: PCP Internal Medicine; Referring Provider Registered Nurse; Visit Provider Internal Medicine
DX: R07.89 Other chest pain (principal); E55.9 Vitamin D deficiency, unspecified; R82.90 Unspecified abnormal findings in urine; R79.89 Other specified abnormal findings of blood chemistry; Z13.6 Encounter for screening for cardiovascular disorders; Z00.00 Encounter for general adult medical examination without abnormal findings
CPT/HCPCS: 36415; 71046; 80053; 80061; 81001; 84443; 85025; 86140; 87086; 87088; 87186; 99212

== ENCOUNTER 2024-03-07 11:26 | Outpatient (AMB) | payer MEDICARE, MEDICAID, SELFPAY ==
[2024-03-07 11:32] VITALS: BP 118/76; PULSE 70; O2SAT 98; BMI 22.1
--- NOTE | 2024-03-07 11:32 | A.OFFPC_ITS ---
Vital Signs 03/07/24 11:32 Height 5 ft 1 in Weight 117 lb BMI 22.1 BP 118/76 Blood Pressure Location Lt brachial Position Sitting Pulse 70 Pulse Source Pulse Oximeter Pulse Oximetry (%) 98 Oxygen Delivery Method Room Air Intake Visit Reasons: PE Intake Note: Pt is here today for PE. Allergies lamotrigine [LAMOTRIGINE] Allergy (Severe, Verified 03/07/24 11:41) Rash sulfamethoxazole [From Septra] Allergy (Mild, Verified 03/07/24 11:41) Itching trimethoprim [From Septra] Allergy (Mild, Verified 03/07/24 11:41) Itching Sulfa (Sulfonamide Antibiotics) Allergy (Unknown, Verified 03/07/24 11:41) itchy Medication List - Last Reconciled 03/07/24 by Carlyn Azul MD buspirone 30 mg PO BID carbamazepine 300 mg PO TID dicyclomine 10 mg PO BID docusate sodium 100 mg PO BEDTIME estradiol 0.01%(0.1mg/gram) pea size to urethral os vaginally daily; for 14 days famotidine (Pepcid) 40 mg PO BEDTIME 30 days lorazepam 1 mg PO DAILY PRN ijhyonns-wpljgzy-rxfp-lutein tabs PO sennosides (Senna Laxative) 17.2 mg (2 x 8.6 mg) PO BEDTIME PRN Tobacco use date assessed: 03/07/24 Dental Screening Dental Screen Date: 01/10/24 HPI PE HPI Details Patient presents for physical. She has been under lot of stress related to her . Patient follows up with a psychiatrist for chronic anxiety and depression and carbamazepine dose was recently increased to 3 times a day. Patient is established with a counselor. She follows up with GI for IBS and is due for repeat colonoscopy. She has an appointment in April for follow-up visit. [facility] Medical History Candidiasis of mouth and esophagus Celiac disease Hyperlipidemia Bilateral thumb pain Lower back pain Diverticulosis Vitamin D deficiency Environmental allergies Mammogram declined Annual physical exam Bipolar 1 disorder GERD (gastroesophageal reflux disease) Surgical History Hx of hemorrhoidectomy History of tonsillectomy History of esophagogastroduodenoscopy (EGD) Hx of colonoscopy History of carpal tunnel release (~2019) Family History Mother Stomach problems Mental health disorder Father Heart problem Daughter Diabetes Other Bipolar 1 disorder Social History Household Members: Significant Other Housing: House Do you presently have visiting nurse or other home services: No Alcohol intake: current Alcohol intake frequency: 0-2 drinks per day Alcohol type: wine Patient Tobacco Use Status: Current someday Tobacco user Tobacco use type: Cigarette Cigarettes Per Day: 3 e-Cigarette/Vaping Use: Former Use Substance Use Type: Marijuana Advance Directives Date on File: 10/05/20 service: No Current occupational status: disabled Cognitive needs: No Hearing needs: No Vision needs: Yes Questionnaire Thrive Questionnaire Date Thrive assessed: 01/07/24 I am a: Patient What is your living situation today?: I have a steady place to live Within the past 12 months, did the food you bought not last and you didn't have the money to get more?: Never true Within the past 12 months, did you worry whether your food would run out before you got money to buy more?: Never true Do you have trouble paying for medicines?: No Do you have trouble getting transportation to medical appointments?: No Do you have trouble paying your heating and electricity bill?: No Do you have trouble taking care of your child, family member or friend?: No Do you have trouble with day-to-day activities such as bathing, preparing meals, shopping, managing finances, etc.?: No Are you currently unemployed and looking for a job?: No Are you interested in more education?: No Please select the resources that you would like help with: None Currently or been in a relationship where the following occur: No concerns reported THRIVE Score: 0 PAVEL-7 AMB Questionnaire PAVEL-7 Date PAVEL - 7 assessed: 01/10/24 Source: Developed by Drs. Patel Lopez, Leslie Stevens, Alphonse Michael and colleagues, with an educational merlin from [employer] Review of Systems Const All systems reviewed & are unremarkable except as noted in HPI and below Eyes Reports no additional complaints ENT Reports no additional complaints Card Reports no additional complaints Resp Reports no additional complaints GI Reports no additional complaints Reports no additional complaints Musc Reports no additional complaints Physical exam (Primary Care) Vital Signs: Last Vital Signs Pulse 70 03/07/24 11:32 BP 118/76 03/07/24 11:32 Pulse Ox 98 03/07/24 11:32 Oxygen Delivery Method Room Air 03/07/24 11:32 BMI result Body Mass Index 22.1 Tobacco/Smoking Status: Tobacco use Status Tobacco use date assessed 03/07/24 03/07/24 11:44 Patient Tobacco Use Status Current someday Tobacco 03/07/24 11:33 Tobacco use type Cigarette 03/07/24 11:33 e-Cigarette/Vaping Use Former Use 03/07/24 11:33 Thrive Assessment: Date of Thrive Assessment Date Thrive assessed 01/07/24 03/07/24 11:33 Currently or been in a relationship where the following occur: No concerns reported Const General: no acute distress HENMT Head: Yes normal to inspection Ears: hearing grossly normal bilaterally Throat: Yes posterior oropharynx normal Eyes General: appearance normal, both eyes and all related structures Neck Neck: Yes supple Resp Effort & Inspection: normal respiratory effort Auscultation: clear to auscultation bilaterally Cardio Rhythm: regular rhythm Heart sounds: S1 normal heart sound present and S2 normal heart sound present GI Inspection: Yes normal to inspection Palpation (GI): Soft to palpation Percussion: Yes normal to percussion Auscultation: normal bowel sounds Coding Level of Care Code Est Pt Prev Care 40-64y(69171) Diagnoses Hyponatremia E87.1 Bipolar 1 disorder F31.9 Hyperlipidemia E78.5 Annual physical exam Z00.00 Family history of colon cancer in mother Z80.0 Assessment & Plan Assessment & Plan (1) Hyponatremia: Code(s): E87.1 - Hypo-osmolality and hyponatremia Category: Medical Plan: Fluid restriction discussed with the patient, recheck sodium level urine and plasma osmolality in 1 week (2) Bipolar 1 disorder: Comment: f/u with psychiatry Code(s): F31.9 - Bipolar disorder, unspecified Category: Medical Plan: Follow-up with psychiatry (3) Hyperlipidemia: Code(s): E78.5 - Hyperlipidemia, unspecified Category: Medical Plan: Continue low-cholesterol diet (4) Annual physical exam: Comment: Pt declined mammogram Code(s): Z00.00 - Encounter for general adult medical examination without abnormal findings Category: Medical Plan: Well-balanced diet regular physical activity discussed with the patient. (5) Family history of colon cancer in mother: Comment: Negative colonoscopy 11/2018, repeat 2023 Code(s): Z80.0 - Family history of malignant neoplasm of digestive organs Category: Medical Plan: Patient is due for repeat colonoscopy this year Orders: Orders Osmolality Urine 1 Week E87.1 - Hypo-osmolality and hyponatremia Osmolality, Serum 1 Week E87.1 - Hypo-osmolality and hyponatremia Basic Metabolic Panel 1 Week E87.1 - Hypo-osmolality and hyponatremia Medications: Discontinued estradiol 0.01%(0.1mg/gram) Discontinued Reason: Doctor's Order pea size to urethral os vaginally daily; for 14 days 42.5 grams 2RF
== END 2024-03-07 13:09 | disposition home or self-care (01) ==
PROVIDERS: PCP Internal Medicine; Visit Provider Internal Medicine
DX: E87.1 Hypo-osmolality and hyponatremia (principal); F31.9 Bipolar disorder, unspecified; E78.5 Hyperlipidemia, unspecified; Z00.00 Encounter for general adult medical examination without abnormal findings; Z80.0 Family history of malignant neoplasm of digestive organs

== ENCOUNTER → 2024-03-07 11:26 | Outpatient (BNVA) | payer MEDICARE, MEDICAID, SELFPAY | PROVIDERS: PCP Internal Medicine; Visit Provider Internal Medicine | DX: Z00.01 Encounter for general adult medical examination with abnormal findings (principal); E78.1 Pure hyperglyceridemia; F31.9 Bipolar disorder, unspecified; E78.5 Hyperlipidemia, unspecified; Z78.0 Asymptomatic menopausal state | CPT/HCPCS: 99396 ==

== ENCOUNTER 2024-03-30 09:03 | Emergency (ER) | payer MEDICARE, MEDICAID, SELFPAY ==
--- NOTE | ~2024-03-30 | XR_ITS ---
EXAMINATION: XR RIBS, RIGHT CLINICAL INFORMATION: Right rib pain. No injury. COMPARISON: Chest x-ray February 26, 2024 TECHNIQUE: 3 views of the right ribs were obtained. FINDINGS: Cardiac silhouette is normal in size. The lungs are well aerated. There is no lobar consolidation. No pleural effusion or pneumothorax. No right-sided rib fracture. XR/XR ribs RT min 3V w CXR1V IMPRESSION: No right-sided rib fracture. Electronically signed by: Matteo Epperson MD 03/30/2024 10:27 AM EDT
--- NOTE | ~2024-03-30 | CT_ITS ---
EXAMINATION: CT ABDOMEN AND PELVIS WITH CONTRAST CLINICAL INFORMATION: Diffuse tenderness COMPARISON: CT abdomen and pelvis October 04, 2020 (report only) and CT abdomen and pelvis October 31, 2018 TECHNIQUE: Multidetector volumetric images were obtained from the superior aspect of the liver through the pubic symphysis following administration 85 mL of Omnipaque 350 intravenous contrast. Sagittal and coronal reformatted images were obtained on the technologist's workstation. This CT examination was performed using dose optimization techniques as appropriate, variously including the following: *Automated exposure control *Adjustment of mA and/or kV according to patient size (this includes techniques or standardized protocols for targeted exams where dose is matched to indication/reason for exam; i.e. extremities or head) *Use of iterative reconstruction technique DLP: 301 mGy-cm FINDINGS: Visualized lung bases demonstrate minimal atelectasis. The liver is normal in size. Several hepatic hypodensities are noted, many of which demonstrate cystic characteristics with some of which are inadequately characterized. The gallbladder is normal in appearance. The pancreas, spleen and adrenal glands are unremarkable. Symmetrically enhancing kidneys. There is no hydronephrosis of either kidney. The stomach is relatively decompressed. Normal caliber loops of small and large bowel. There is a mild to moderate stool burden throughout the majority of the colon. There is moderate to severe colonic diverticulosis. There is circumferential mucosal thickening of the sigmoid colon with adjacent pericolonic stranding suggesting an area of active diverticulitis. Unremarkable anastomotic suture line at the anorectal region. Normal caliber abdominal aorta. Mild atherosclerotic disease. No retroperitoneal lymphadenopathy. 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 The bladder is normal in appearance. The uterus is normal in size. No well organized pelvic fluid collection. No inguinal lymphadenopathy. Diffuse osteopenia. Mild degenerative changes of the spine. CT/CT abdomen pelvis w IV con IMPRESSION: Moderate to severe colonic diverticulosis with circumferential mucosal thickening of the sigmoid colon with adjacent pericolonic stranding suggesting an area of active diverticulitis. No complicating abscess. Fleischner guidelines were followed. Electronically signed by: Matteo Epperson MD 03/30/2024 01:50 PM EDT
[2024-03-30 09:11] VITALS: BP 155/114; PULSE 118; RESP 20; TEMP 37; O2SAT 98; BMI 22.0
--- NOTE | 2024-03-30 09:24 | ED.GENADULT ---
HPI - General Adult General Chief complaint: General Medical Stated complaint: body aches Time Seen by Provider: 03/30/24 09:23 Source: patient Mode of arrival: ambulatory Limitations: no limitations History of Present Illness ED Provider: Priya CHAMBERLAIN narrative: Patient is a 58-year-old female with history of celiac disease, HLD, bipolar 1, GERD presenting to the emergency department with complaint of rectal pain as well as pain and a popping sensation to right anterior ribs. States she had a lumpy bowel movement this morning and felt this exacerbated her rectal pain. Increased pain with sitting. Denies diarrhea or constipation. Denies hematochezia or melena. States rib pain initially began while washing her dog in the bathtub. Saw PCP, had negative x-ray. Then had additional episode of popping sensation to right side of ribs. Denies shortness of breath or difficulty breathing. MD complaint: rib and rectal pain Treatments prior to arrival: none Related Data Home Medications ?Medication ?Instructions ?Recorded ?Confirmed lorazepam 1 mg tablet 1 mg PO DAILY PRN 02/08/22 03/07/24 carbamazepine 200 mg tablet 300 mg PO TID 08/31/23 03/07/24 [id number]-mpcsgqi-ielt-lutein tablet tab PO 03/07/24 03/07/24 Previous Rx's ?Medication ?Instructions ?Recorded dicyclomine 10 mg capsule 10 mg PO BID for abdominal pain 03/02/23 #180 caps docusate sodium 100 mg capsule 100 mg PO BEDTIME #60 caps 08/31/23 famotidine 40 mg tablet (Pepcid) 40 mg PO BEDTIME 30 days #60 tabs 08/31/23 sennosides 8.6 mg tablet (Senna 17.2 mg (2 x 8.6 mg) PO BEDTIME 08/31/23 Laxative) PRN constipation #60 tabs buspirone 30 mg tablet 30 mg PO BID #60 tabs 02/09/24 amoxicillin 875 mg-potassium 1 tab PO BID #20 tabs 03/30/24 clavulanate 125 mg tablet Allergies Allergy/AdvReac Type Severity Reaction Status Date / Time lamotrigine [LAMOTRIGINE] Allergy Severe Rash Verified 03/30/24 09:16 Sulfa (Sulfonamide Allergy Mild itchy Verified 03/30/24 09:16 Antibiotics) sulfamethoxazole Allergy Mild Itching Verified 03/30/24 09:16 [From Septra] trimethoprim [From Septra] Allergy Mild Itching Verified 03/30/24 09:16 Review of Systems Review of Systems: As per HPI. Yes all other systems are reviewed and are negative Constitutional: Constitutional: Reports as per HPI [facility] Past Medical History Medical History Candidiasis of mouth and esophagus Celiac disease Hyperlipidemia Bilateral thumb pain Lower back pain Diverticulosis Vitamin D deficiency Environmental allergies Mammogram declined Annual physical exam Bipolar 1 disorder GERD (gastroesophageal reflux disease) Surgical History Hx of hemorrhoidectomy History of tonsillectomy History of esophagogastroduodenoscopy (EGD) Hx of colonoscopy History of carpal tunnel release (~2019) Family History Family History Mother Stomach problems Mental health disorder Father Heart problem Daughter Diabetes Other Bipolar 1 disorder Social History Social History Household Members: Significant Other Housing: House Do you presently have visiting nurse or other home services: No Alcohol intake: current Alcohol intake frequency: 0-2 drinks per day Alcohol type: wine Patient Tobacco Use Status: Current someday Tobacco user Tobacco use type: Cigarette Cigarettes Per Day: 3 Smoked in Last 30 Days: Yes e-Cigarette/Vaping Use: Former Use Substance Use Type: Marijuana Advance Directives: No Advance Directives Information Provided: No Advance Directives Date on File: 10/05/20 Patient : No service: No Current occupational status: disabled Cognitive needs: No Hearing needs: No Vision needs: Yes Physical Exam ED Vital Signs: Vital Signs - 24 hr 03/30/24 09:11 03/30/24 09:37 03/30/24 09:58 Temperature 98.6 F 98.2 F Pulse Rate 118 H 78 Respiratory Rate 20 20 Blood Pressure 155/114 H 131/67 Pulse Oximetry 98 96 Oxygen Delivery Method Room Air Room Air 03/30/24 12:09 03/30/24 13:24 Temperature 98.2 F Pulse Rate 70 80 Respiratory Rate 18 11 L Blood Pressure 147/81 H 125/67 Pulse Oximetry 98 98 Oxygen Delivery Method Room Air Room Air BMI result Body Mass Index 22.0 Vital signs have been reviewed and appear to be correct. Blood pressure initially elevated, improved without intervention. Heart rate initially mildly tachycardic, improved without intervention. Respiratory rate normal. Temperature normal. Oxygen saturation normal. Const General: cooperative, healthy appearing and no acute distress Orientation/consciousness: oriented to person, oriented to place, oriented to time and patient oriented x3 Limitations: no limitations HENMT Head: Yes normocephalic and Yes atraumatic Ears: external ears normal General nose exam: Normal external nose present Face and sinus: Yes face symmetric Mouth: oropharynx normal and moist mucous membranes Throat: Yes uvula midline Eyes Pupils: Equal, round and reactive pupils present Neck Neck: Yes normal visual inspection and Yes supple Chest Chest palpation & inspection: tenderness rib right mid-clavicular line involving the 9th rib, involving the 10th rib and involving the 11th rib Resp Effort & Inspection: normal respiratory effort and able to speak in complete sentences Auscultation: clear to auscultation bilaterally Cardio Rate: regular rate Rhythm: regular rhythm Heart sounds: S1 normal heart sound present and S2 normal heart sound present GI Other: Rectal exam chaperoned by SHAWN Lozoya. Palpation (GI): Soft to palpation and nontender Auscultation: normoactive bowel sounds Rectal Exam - Female: normal sphincter tone, External hemorrhoid(s) present (not thrombosed), No Rectal prolapse, No fecal impaction, No Lesions present (GI), No Anal fissure(s) present and tenderness General: Yes no CVA tenderness Back/Spine/Pelvis Back: no CVA tenderness Skin General skin exam: elasticity normal and turgor normal Neuro General: oriented to person, oriented to place, oriented to time, patient oriented x3, moves all extremities, no focal motor deficits and CN's II-XI intact bilaterally Cranial nerves: Yes Equal, round and reactive pupils present Cognition (Neuro): normal cognition Extrem General: Yes full ROM, Yes no pedal edema and Yes no calf tenderness Psych Mental Status: mental status grossly normal Affect: normal affect Thought process: Normal thought process present Medications Administered Discontinued Medications Generic Name Dose Route Start Last Admin Trade Name Freq PRN Reason Stop Dose Admin Iohexol 100 ml 03/30/24 12:44 03/30/24 12:45 Iohexol 350 Mg/Ml 100 Ml Infus..Btl IV 10/26/24 12:45 85 ml ONCE ONE Administration Medical Decision Making Medical Decision Making [facility] Narrative: Patient is a 58-year-old female with history of celiac disease, HLD, bipolar 1, GERD presenting to the emergency department with complaint of rectal pain as well as pain and a popping sensation to right anterior ribs. On exam patient is awake, A+Ox3, VS WNL, afebrile, normal neurological exam without focal deficits, physical exam findings as above. Given reported symptoms and physical exam findings, initial differential includes hemorrhoid, thrombosed hemorrhoid, rib fracture, spontaneous sternoclavicular subluxation. X-ray ribs notable for no evidence of fracture. My interpretation is in agreement with the radiologist's interpretation. No concerning findings on rectal exam. Results discussed with patient and all questions answered. Patient now reporting generalized abdominal pain which she initially denied and is guarding abdomen with all attempts at palpation. Will add labs, CT A/P. CT notable for diverticulitis without abscess. Will disharge patient home on augmentin, follow up with PCP. Return precautions discussed. Patient verbalized understanding of and agreement with plan. Differential Diagnosis Differential Diagnoses: The differential diagnosis associated with the presentation includes As per [facility] Admission/Observation Consideration of admission/observation: Escalation of care including admission/observation considered Patient would have been admitted to the hospital had their work up had any findings where hospital admission was appropriate and their clinical presentation warranted hospital admission. Lab Data [facility] Lab Attestation statement: I reviewed the patient's lab results. as per [facility] 03/30/24 12:08 03/30/24 12:08 Labs: Lab Results 03/30/24 Range/Units 12:08 WBC 12.2 H (4.8-10.8) X10*3/uL RBC 3.85 L (4.20-5.50) X10*6/uL Hgb 12.9 (12.0-16.0) g/dl Hct 37.4 (37.0-47.0) % MCV 97.1 (80.0-98.0) fL MCH 33.5 H (27.0-33.0) pg MCHC 34.5 (31.0-35.0) g/dl RDW 11.7 (11.0-16.0) % Plt Count 226 (160-400) X10*3/uL MPV 8.1 L (9.4-12.3) fL Immature Gran % (Auto) 0.3 (0.0-0.4) % Neut % (Auto) 73.8 H (45-73) % Lymph % (Auto) 13.2 L (20-40) % [place] % (Auto) 11.7 H (2-11) % Eos % (Auto) 0.5 (0-4) % Baso % (Auto) 0.5 (0-2) % Lymph # (Auto) 1.6 (1.2-4.9) X10*3/uL [place] # (Auto) 1.4 H (0.1-1.2) X10*3/uL Eos # (Auto) 0.1 (0.0-0.4) X10*3/uL Baso # (Auto) 0.1 (0.0-0.2) X10*3/uL Abs Immat Gran (auto) 0.04 H (0.00-0.03) X10*3/uL Absolute Neuts (auto) 9.0 H (2.0-8.3) x10*3/uL Absolute Nucleated RBC 0.000 (0.0-0.012) X10*3/uL Nucleated RBC % (auto) 0.0 (0.0-0.2) /100WBC Sodium 136 (135-145) mmol/L Potassium 3.9 (3.3-5.1) mmol/L Chloride 101 (96-108) mmol/L Carbon Dioxide 25 (22-29) mmol/L Anion Gap 14 (12-20) BUN 6 L (9-16) mg/dL Creatinine 0.72 (0.5-1.4) mg/dL Estim Creat Clear Calc 62.6 Estimated GFR > 60 Random Glucose 90 (60-115) mg/dL Calcium 9.5 (8.4-10.2) mg/dL Total Bilirubin 0.6 (0.0-1.0) mg/dL AST 20 (5-31) U/L ALT 18 (0-31) U/L Alkaline Phosphatase 112 (39-117) U/L Total Protein 6.4 L (6.5-8.0) g/dL Albumin 3.9 (3.5-5.0) g/dL Independent Interpretation I performed an independent interpretation of an: Plain X-Ray Interpretation: No right sided rib fractures on x-ray. Radiology Impression Discussion of test interpretation with radiology: I have reviewed the radiologist's reading. Radiologist Impression: XR/XR ribs RT min 3V w CXR1V IMPRESSION: No right-sided rib fracture External Record Review External record reviewed: Inpatient record, Office record and Outpatient record Prescription Management I considered prescription management with: Antibiotic Discharge Plan Discharge Clinical Impression: Diverticulitis Patient Disposition: Home, Self-Care Instructions: Amoxicillin/Clavulanate Potassium (By mouth), Diverticulitis (ED) Additional Instructions: You were evaluated in the emergency department today for abdominal pain. Your CT scan showed evidence of diverticulitis. You are being treated with an antibiotic, complete the full course as prescribed even if symptoms improve. Follow-up with your primary care provider. Return to the emergency department if you develop increasing pain, persistent vomiting, fever or any other concerning symptoms. Prescriptions: New amoxicillin-pot clavulanate 875-125 mg tablet 1 tab PO BID Qty: 20 0RF No Action buspirone 30 mg tablet 30 mg PO BID Qty: 60 2RF carbamazepine 200 mg tablet 300 mg PO TID lorazepam 1 mg tablet 1 mg PO DAILY PRN dicyclomine 10 mg capsule 10 mg PO BID Qty: 180 2RF sennosides [Senna Laxative] 8.6 mg tablet 17.2 mg PO BEDTIME PRN (Reason: constipation) Qty: 60 6RF docusate sodium 100 mg capsule 100 mg PO BEDTIME Qty: 60 6RF famotidine [Pepcid] 40 mg tablet 40 mg PO BEDTIME 30 Days Qty: 60 6RF jtudrufo-pazfdfp-eppd-lutein Tablet PO Print Language: Icelandic
[2024-03-30 09:37] VITALS: BP 131/67; PULSE 78; RESP 20; O2SAT 96
[2024-03-30 09:58] VITALS: TEMP 36.8
--- NOTE | 2024-03-30 10:14 | PC.NURSE ---
Pt is well appearing. No SOB, able to ambulate and change w/o grimace. Anus is WNL with sml hemrroid. Describes a very sharp pain in rectum with all movement/coughing as well as pain in ribs iwth cough/laugh.
[2024-03-30 12:09] VITALS: BP 147/81; PULSE 70; RESP 18; TEMP 36.8; O2SAT 98
[2024-03-30 12:14] LABS: MANUAL DIFF FLAG NO
[2024-03-30 12:16] LABS: Basophils Absolute Auto 0.1 X10*3/uL (0.0-0.2); Basophils Percent Auto 0.5 % (0-2); Eosinophils Absolute Auto 0.1 X10*3/uL (0.0-0.4); Eosinophils Percent Auto 0.5 % (0-4); Hematocrit 37.4 % (37.0-47.0); Hemoglobin 12.9 g/dl (12.0-16.0); Imm Gran Abs Auto 0.04 X10*3/uL (0.00-0.03); Imm Gran Pct Auto 0.3 % (0.0-0.4); Lymphocytes Absolute Auto 1.6 X10*3/uL (1.2-4.9); Lymphocytes Percent Auto 13.2 % (20-40); Mean Corpuscular HGB Conc 34.5 g/dl (31.0-35.0); Mean Corpuscular Hemoglobin 33.5 pg (27.0-33.0); Mean Corpuscular Volume 97.1 fL (80.0-98.0); Mean Platelet Volume 8.1 fL (9.4-12.3); Monocytes Absolute Auto 1.4 X10*3/uL (0.1-1.2); Monocytes Percent Auto 11.7 % (2-11); Neutrophils Percent Auto 73.8 % (45-73); Platelet Count 226 X10*3/uL (160-400); Red Blood Count 3.85 X10*6/uL (4.20-5.50); Red Cell Distribution Width 11.7 % (11.0-16.0); White Blood Count 12.2 X10*3/uL (4.8-10.8)
[2024-03-30 12:38] LABS: Alanine Aminotransferase 18 U/L (0-31); Albumin Level 3.9 g/dL (3.5-5.0); Alkaline Phosphatase 112 U/L (39-117); Anion Gap 14 (12-20); Aspartate Amino Transferase 20 U/L (5-31); Bilirubin Total 0.6 mg/dL (0.0-1.0); Blood Urea Nitrogen 6 mg/dL (9-16); Calcium 9.5 mg/dL (8.4-10.2); Carbon Dioxide 25 mmol/L (22-29); Chloride 101 mmol/L (96-108); Creatinine Clr Calc Pharmacy 62.6; Estimated Glomerular Filt Rate > 60; Glucose Random 90 mg/dL (60-115); Potassium 3.9 mmol/L (3.3-5.1); Sodium 136 mmol/L (135-145); Total Protein 6.4 g/dL (6.5-8.0)
[2024-03-30] MEDS: iohexoL 350 MG/ML 100 ML INFUS..BTL IV (12:45)
[2024-03-30 13:24] VITALS: BP 125/67; PULSE 80; RESP 11; O2SAT 98
[2024-03-30 14:45] VITALS: BP 125/67; PULSE 80; RESP 11; TEMP 37; O2SAT 98
== END 2024-03-30 14:48 | disposition home or self-care (01) ==
PROVIDERS: Registered Nurse Emergency; Emergency Provider Emergency Medicine Emergency Medical Services; PCP Internal Medicine
DX: K57.32 Diverticulitis of large intestine without perforation or abscess without bleeding (principal); R07.81 Pleurodynia; K62.89 Other specified diseases of anus and rectum; F17.210 Nicotine dependence, cigarettes, uncomplicated
CPT/HCPCS: 36415; 71101; 74177; 80053; 85025; 99284; Q9967

== ENCOUNTER 2024-04-11 12:05 | Outpatient (AMB) | payer MEDICARE, MEDICAID, SELFPAY ==
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
[2024-04-11 12:35] VITALS: BP 157/74; PULSE 65; BMI 21.2
== END 2024-04-11 14:11 | disposition home or self-care (01) ==
LOC: HO.HGI 12:06
PROVIDERS: PCP Internal Medicine; Visit Provider Nurse Practitioner
DX: K57.92 Diverticulitis of intestine, part unspecified, without perforation or abscess without bleeding (principal); K58.2 Mixed irritable bowel syndrome; K21.9 Gastro-esophageal reflux disease without esophagitis; K90.0 Celiac disease; Z80.0 Family history of malignant neoplasm of digestive organs
CPT/HCPCS: 99214

== ENCOUNTER → 2024-04-11 12:05 | Outpatient (BNVA) | payer MEDICARE, MEDICAID, SELFPAY | PROVIDERS: PCP Internal Medicine; Visit Provider Nurse Practitioner | DX: Z01.818 Encounter for other preprocedural examination (principal); K58.2 Mixed irritable bowel syndrome; K90.0 Celiac disease; K21.9 Gastro-esophageal reflux disease without esophagitis; K57.92 Diverticulitis of intestine, part unspecified, without perforation or abscess without bleeding; E78.5 Hyperlipidemia, unspecified; Z80.0 Family history of malignant neoplasm of digestive organs | CPT/HCPCS: 99212 ==

== ENCOUNTER 2024-05-08 14:40 | Outpatient (AMB) | payer MEDICARE, MEDICAID, SELFPAY ==
[2024-05-08 10:56] VITALS: BMI 21.2
--- NOTE | 2024-05-08 14:54 | A.OFFVIS_ITS ---
VS Expanded 05/08/24 10:56 Height 5 ft 1 in Weight 112 lb BMI 21.2 Intake Visit Reasons: Diverticulitis/Confirmed Allergies lamotrigine [LAMOTRIGINE] Allergy (Severe, Verified 04/11/24 12:18) Rash Sulfa (Sulfonamide Antibiotics) Allergy (Mild, Verified 04/11/24 12:18) itchy sulfamethoxazole [From Febra] Allergy (Mild, Verified 04/11/24 12:18) Itching trimethoprim [From Febra] Allergy (Mild, Verified 04/11/24 12:18) Itching Nutrition Presentation Details: Pt presents for MNT for hx of diverticulitis/hyperlipidemia, celiac disease Pt reports eating a variety of foods, sometimes concerned about diverticulitis flares takes probiotics , mvi Keep physically active BS Monitoring Most Recent Diabetes Results: Cholesterol 230 mg/dL (<200) H 02/26/24 HDL Cholesterol 106 mg/dL (>40) 02/26/24 Triglycerides 55 mg/dL (<150) 02/26/24 Creatinine 0.72 mg/dL (0.5-1.4) 03/30/24 Blood Urea Nitrogen 6 mg/dL (9-16) L 03/30/24 Sodium 136 mmol/L (135-145) 03/30/24 Potassium 3.9 mmol/L (3.3-5.1) 03/30/24 Chloride 101 mmol/L (96-108) 03/30/24 Carbon Dioxide 25 mmol/L (22-29) 03/30/24 Calcium 9.5 mg/dL (8.4-10.2) 03/30/24 AST 20 U/L (5-31) 03/30/24 ALT 18 U/L (0-31) 03/30/24 Total Protein 6.4 g/dL (6.5-8.0) L 03/30/24 Albumin 3.9 g/dL (3.5-5.0) 03/30/24 FQV-Pylvhax-Pt.Jeor Equation Height: 5 ft 1 in Weight: 112 lb Resting Metabolic Rate: 1019.69 Calculated Activity Level: Moderate Activity Calories Needed to Maintain Weight: 1580.52 [facility] Medical History (Updated 04/11/24 @ 13:20 by SCOTTIE Urena) Vaginal parminder Diarrhea Diverticulosis Acute pancreatitis with uninfected necrosis Tooth infection UTI (urinary tract infection) Annual physical exam Candidiasis of mouth and esophagus Celiac disease Hyperlipidemia Bilateral thumb pain Lower back pain Vitamin D deficiency Environmental allergies Mammogram declined Bipolar 1 disorder GERD (gastroesophageal reflux disease) Surgical History Hx of hemorrhoidectomy History of tonsillectomy History of esophagogastroduodenoscopy (EGD) Hx of colonoscopy History of carpal tunnel release (~2019) Family History Mother Stomach problems Mental health disorder Father Heart problem Daughter Diabetes Other Bipolar 1 disorder Social History Household Members: Significant Other Housing: House Do you presently have visiting nurse or other home services: No Alcohol intake: current Alcohol intake frequency: 0-2 drinks per day Alcohol type: wine Patient Tobacco Use Status: Current someday Tobacco user Tobacco use type: Cigarette Cigarettes Per Day: 3 e-Cigarette/Vaping Use: Former Use Substance Use Type: Marijuana Advance Directives Date on File: 10/05/20 service: No Current occupational status: disabled Cognitive needs: No Hearing needs: No Vision needs: Yes Assessment & Plan Assessment & Plan (1) Celiac disease: Code(s): K90.0 - Celiac disease Category: Medical Plan: Wt: 51 Kg (05/28 ) Est kcal needs as per MSJ: 1600 (40% carb, 30% protein/fat) Est fluid needs as per 25-30 ml/d: 1600 Est prot per day as per 1 g/kg bw: 51 Recommend fiber intake : 8-10 g per day and gradually increase to 25-28 g per day for women and 35-38 g for men or as tolerated Recommend sodium intake per day : less than 2300 mg Educated patient on: ( R = reviewed V = verbalizes understanding N/R = needs review N/A = not applicable * Food sources of carbohydrate, adequate serving sizes and its role in various health conditions: R * Differences between complex carbohydrates a simple carbohydrates, role of fiber in diet: R V N/R * Lean protein sources of foods: R * Differences between types of fats and role in diet (mono on saturated fat fatty acids, saturated fatty acids, trans fats): R * Food sources of sodium in salt and healthy modifications for heart health in kidney health: R V R/V * Vitamins and minerals: R V N/R * Healthy plate method concept: R V N/R * Physical activity: Benefits a precaution: R V Patient Instructions: Choose lean protein foods: fish twice/wk, poultry and reduce on frequency of red meats/ultra processed meats. Include vegan protein at least twice a week Coding Level of Care Code Nutr Indiv Intake (77998) Diagnoses Celiac disease K90.0 Time Spent (min) 30
[2024-05-13 11:00] VITALS: BMI 21.2
== END 2024-05-08 15:16 | disposition home or self-care (01) ==
LOC: HO.ENCR 14:41
PROVIDERS: PCP Internal Medicine; Visit Provider Dietitian, Registered
DX: K90.0 Celiac disease (principal)

== ENCOUNTER → 2024-05-08 14:40 | Outpatient (BNVA) | payer MEDICARE, MEDICAID, SELFPAY | PROVIDERS: PCP Internal Medicine; Visit Provider Dietitian, Registered | DX: K90.0 Celiac disease (principal) | CPT/HCPCS: 97802 ==

== ENCOUNTER 2024-09-04 11:32 | Outpatient (REF) | payer MEDICARE, MEDICAID, SELFPAY ==
--- NOTE | ~2024-09-04 | XR_ITS ---
CLINICAL HISTORY: M19.049 - Primary osteoarthritis, unspecified hand 3 views cervical spine Comparison: None Findings: Normal vertebral body alignment. No acute fractures or dislocation. Multiple level degenerative disc change. Prevertebral soft tissues within normal limits. IMPRESSION: No acute findings. This document has been electronically signed by: Adam Carrion MD on 09/06/2024 08:50:46
--- NOTE | ~2024-09-04 | XR_ITS ---
CLINICAL HISTORY: M19.049 - Primary osteoarthritis, unspecified hand 4 view left hand Comparison: None Findings: No fractures or dislocations. There are changes of osteoarthritis in the right 1st carpometacarpal joint. No erosions. No radiopaque foreign body. IMPRESSION: 1. No acute findings This document has been electronically signed by: Adam Carrion MD on 09/06/2024 08:49:58
[2024-09-04 16:09] LABS: MANUAL DIFF FLAG NO
[2024-09-04 16:18] LABS: Basophils Absolute Auto 0.1 X10*3/uL (0.0-0.2); Eosinophils Absolute Auto 0.1 X10*3/uL (0.0-0.4); Hematocrit 41.9 % (37.0-47.0); Hemoglobin 14.5 g/dl (12.0-16.0); Imm Gran Abs Auto 0.04 X10*3/uL (0.00-0.03); Imm Gran Pct Auto 0.5 % (0.0-0.4); Lymphocytes Percent Auto 25.3 % (20-40); Mean Corpuscular HGB Conc 34.6 g/dl (31.0-35.0); Mean Corpuscular Hemoglobin 32.7 pg (27.0-33.0); Mean Corpuscular Volume 94.6 fL (80.0-98.0); Mean Platelet Volume 8.3 fL (9.4-12.3); Monocytes Percent Auto 12.3 % (2-11); Neutrophils Absolute Auto 4.8 x10*3/uL (2.0-8.3); Neutrophils Percent Auto 59.9 % (45-73); Platelet Count 333 X10*3/uL (160-400); Red Blood Count 4.43 X10*6/uL (4.20-5.50); White Blood Count 7.9 X10*3/uL (4.8-10.8)
[2024-09-04 16:22] LABS: Rheumatoid Factor < 13.0 IU/mL (<15.0)
[2024-09-04 17:17] LABS: Alanine Aminotransferase 21 U/L (0-31); Albumin Level 4.6 g/dL (3.5-5.0); Alkaline Phosphatase 114 U/L (39-117); Anion Gap 12 (12-20); Aspartate Amino Transferase 31 U/L (5-31); Bilirubin Total 0.5 mg/dL (0.0-1.0); Blood Urea Nitrogen 8 mg/dL (9-16); Calcium 9.6 mg/dL (8.4-10.2); Carbon Dioxide 23 mmol/L (22-29); Chloride 102 mmol/L (96-108); Estimated Glomerular Filt Rate > 60; Glucose Random 93 mg/dL (60-115); Potassium 4.3 mmol/L (3.3-5.1); Sodium 133 mmol/L (135-145); Total Protein 7.1 g/dL (6.5-8.0)
[2024-09-04 17:36] LABS: Erythrocyte Sedimentation Rate 2 MM/HR (0-20)
[2024-09-06 19:27] LABS: Cyclic Citrullinated Peptide <16 UNITS
[2024-09-10 14:39] LABS: Anti Nuclear Antibody Screen NEGATIVE (NEGATIVE)
== END 2024-09-04 11:33 | disposition home or self-care (01) ==
LOC: HO.HMGCX 11:32
PROVIDERS: PCP Internal Medicine; Visit Provider Internal Medicine
DX: M19.049 Primary osteoarthritis, unspecified hand (principal)
CPT/HCPCS: 36415; 72040; 73130; 80053; 85025; 85652; 86038; 86200; 86431; 96127; 99212

== ENCOUNTER 2024-09-04 11:32 | Outpatient (AMB) | payer MEDICARE, MEDICAID, SELFPAY ==
--- NOTE | 2024-09-04 11:53 | A.OFFPC_ITS ---
Vital Signs 09/04/24 12:31 Height 5 ft 1 in Weight 115 lb BMI 21.7 BP 122/78 Blood Pressure Location Lt brachial Position Sitting Respiration 18 Pulse 79 Pulse Source Pulse Oximeter Temp 98.2 F Temp Source Oral Pulse Oximetry (%) 98 Oxygen Delivery Method Room Air Intake Visit Reasons: Pain in her hand/OA prior to intake Intake Note: Pt is here today for a sick visit. Pt c/o bilateral wrist and hand pain. Allergies lamotrigine [LAMOTRIGINE] Allergy (Severe, Verified 09/04/24 12:35) Rash Sulfa (Sulfonamide Antibiotics) Allergy (Mild, Verified 09/04/24 12:35) itchy sulfamethoxazole [From Septra] Allergy (Mild, Verified 09/04/24 12:35) Itching trimethoprim [From Septra] Allergy (Mild, Verified 09/04/24 12:35) Itching Medication List - Last Reconciled 09/04/24 by Carlyn Azul MD buspirone 30 mg PO BID carbamazepine 300 mg PO TID dicyclomine 10 mg PO BID docusate sodium 100 mg PO BEDTIME famotidine (Pepcid) 40 mg PO BEDTIME 30 days lorazepam 1 mg PO DAILY PRN meloxicam 7.5 mg PO DAILY iavbjjwb-xkvttbx-wfxh-lutein tabs PO sennosides (Senna Laxative) 17.2 mg (2 x 8.6 mg) PO BEDTIME PRN sodium,potassium,mag sulfates 17.5-3.13-1.6 gram (Suprep Bowel Prep Kit) 480 mL orally; FOR COLONOSCOPY PREP Tobacco use date assessed: 09/04/24 Dental Screening Dental Screen Date: 09/04/24 Did you have a dental visit in the last 12 months?: Yes Did you have a dental problem in the last 6 months where you did not have access to dental care?: No Was dental information given to patient?: Patient has dentist HPI Pain in her hand/OA prior to intake HPI Details Patient presents complaining of bilateral hand joints pain swelling and stiffness lasting over an hour in the mornings affecting mainly bases of the thumbs. Patient also reports bilateral elbow pain and stiffness, neck and bilateral shoulders worse when moving. She has been exercising stretching without significant improvement. Patient denies any weakness or numbness in in upper extremities she tried ibuprofen with only temporary relief. FORMERLY [facility] Medical History Vaginal parminder Diarrhea Diverticulosis Acute pancreatitis with uninfected necrosis Tooth infection UTI (urinary tract infection) Annual physical exam Candidiasis of mouth and esophagus Celiac disease Hyperlipidemia Bilateral thumb pain Lower back pain Vitamin D deficiency Environmental allergies Mammogram declined Bipolar 1 disorder GERD (gastroesophageal reflux disease) Surgical History Hx of hemorrhoidectomy History of tonsillectomy History of esophagogastroduodenoscopy (EGD) Hx of colonoscopy History of carpal tunnel release (~2019) Family History Mother Stomach problems Mental health disorder Father Heart problem Daughter Diabetes Other Bipolar 1 disorder Social History Household Members: Significant Other Housing: House Do you presently have visiting nurse or other home services: No Alcohol intake: current Alcohol intake frequency: 0-2 drinks per day Alcohol type: wine Patient Tobacco Use Status: Current someday Tobacco user Tobacco use type: Cigarette Cigarettes Per Day: 3 e-Cigarette/Vaping Use: Former Use Substance Use Type: Marijuana Advance Directives Date on File: 10/05/20 service: No Current occupational status: disabled Cognitive needs: No Hearing needs: No Vision needs: Yes Questionnaire PHQ-9 Over the last 2 weeks, how often have you been bothered by any of the following problems? 1. Little interest or pleasure in doing things: more than half the days 2. Feeling down, depressed, or hopeless: not at all 3. Trouble falling or staying asleep, or sleeping too much: not at all 4. Feeling tired or having little energy: several days 5. Poor appetite or overeating: not at all 6. Feeling bad about yourself - or that you are a failure or have let yourself or your family down: not at all 7. Trouble concentrating on things, such as reading the newspaper or watching television: not at all 8. Moving or speaking so slowly that other people could have noticed. Or the opposite - being so fidgety or restless that you have been moving around a lot more than usual: several days 9. Thoughts that you would be better off or of hurting yourself in some way: not at all Total score: 4 Depression Screening Interpretation: Negative Depression Screening Done: Yes 00322 - PHQ-9 Billing: Yes Source: Developed by Drs. Patel Lopez, Leslie Stevens, Alphonse Michael and colleagues, with an educational merlin from [employer]. Thrive Questionnaire Date Thrive assessed: 09/04/24 I am a: Patient What is your living situation today?: I have a steady place to live Within the past 12 months, did the food you bought not last and you didn't have the money to get more?: I choose not to answer this question Within the past 12 months, did you worry whether your food would run out before you got money to buy more?: I choose not to answer this question Do you have trouble paying for medicines?: I choose not to answer this question Do you have trouble getting transportation to medical appointments?: No Do you have trouble paying your heating and electricity bill?: I choose not to answer this question Do you have trouble taking care of your child, family member or friend?: No Do you have trouble with day-to-day activities such as bathing, preparing meals, shopping, managing finances, etc.?: No Are you currently unemployed and looking for a job?: No Are you interested in more education?: No Please select the resources that you would like help with: None Currently or been in a relationship where the following occur: No concerns reported THRIVE Score: 0 AUDIT C Alcohol Use Questionnaire (AUDIT-C) 1. How often do you have a drink containing alcohol?: 2-3 times a week 2. How many drinks containing alcohol do you have on a typical day when you are drinking?: 1 or 2 3. How often do you have six or more drinks on one occasion?: Never Total Score: 3 PAVEL-7 AMB Questionnaire PAVEL-7 Date PAVEL - 7 assessed: 09/04/24 Feeling nervous, anxious, or on edge: 1 = Several days Not being able to stop or control worryin = Not at all Worrying too much about different things: 0 = Not at all Trouble relaxin = Several days Being so restless that it is hard to sit still: 1 = Several days Becoming easily annoyed or irritable: 1 = Several days Feeling afraid as if something awful might happen: 0 = Not at all Total PAVEL-7 score (0-4 normal; 5-9 mild; 10-14 moderate; 15-21 severe): 4 Source: Developed by Drs. Patel Lopez, Leslie Stevens, Alphonse Michael and colleagues, with an educational merlin from [employer]. PAVEL-7 Assessment Billing PAVEL-7 Assessment Tool: PAVEL-7 Assessment 29771 Review of Systems Const All systems reviewed & are unremarkable except as noted in HPI and below Eyes Reports no additional complaints ENT Reports no additional complaints Card Reports no additional complaints GI Reports no additional complaints Reports no additional complaints Physical exam (Primary Care) Vital Signs: Last Vital Signs Temp 98.2 F 09/04/24 12:31 Pulse 79 09/04/24 12:31 Resp 18 09/04/24 12:31 BP 122/78 09/04/24 12:31 Pulse Ox 98 09/04/24 12:31 Oxygen Delivery Method Room Air 09/04/24 12:31 BMI result Body Mass Index 21.7 Tobacco/Smoking Status: Tobacco use Status Tobacco use date assessed 09/04/24 09/04/24 11:54 Patient Tobacco Use Status Current someday Tobacco 09/04/24 11:54 Tobacco use type Cigarette 09/04/24 11:54 e-Cigarette/Vaping Use Former Use 09/04/24 11:54 PHQ-9: PHQ-9 Score PHQ-9: Total score 4 09/04/24 12:38 Depression Screening Interpretation: Negative Thrive Assessment: Date of Thrive Assessment Date Thrive assessed 09/04/24 09/04/24 11:54 Currently or been in a relationship where the following occur: No concerns reported Const General: no acute distress HENMT Head: Yes normal to inspection Eyes General: appearance normal, both eyes and all related structures Resp Effort & Inspection: normal respiratory effort Auscultation: clear to auscultation bilaterally Cardio Rhythm: regular rhythm Heart sounds: S1 normal heart sound present and S2 normal heart sound present Back/Spine/Pelvis Other: There is decreased range of motion in C-spine, paraspinal tenderness in the lower cervical region, both shoulders with full range of motion, both elbows with full range of motion, no joint tenderness or swelling. Extrem Other: There is tenderness slight arthritic deformities at the bases of both thumbs no erythema or warmth, the slight tenderness over PIP and D IP joints of both hands no erythema or warmth General: Yes no clubbing, cyanosis or edema Coding Level of Care Code Est Pt Level 3 (59489) Diagnoses Hand arthritis M19.049 Additional Codes PAVEL-7 Assessment Billing - PAVEL-7 Assessment Tool: PAVEL-7 Assessment 94355 ([id number]) PHQ-9 - 27923 - PHQ-9 Billing: Yes ([id number]) Assessment & Plan Assessment & Plan (1) Hand arthritis: Code(s): M19.049 - Primary osteoarthritis, unspecified hand Category: Medical Plan: Obtain x-rays of both hands and C-spine and a arthritis blood work to rule out inflammatory arthritis. Meloxicam 7.5 mg is prescribed and pending on the results patient will be referred to Rheumatology Orders: Orders Erythrocyte Sedimentation Rate Today M19.049 - Primary osteoarthritis, unspecified hand Rheumatoid Factor Today M19.049 - Primary osteoarthritis, unspecified hand Cyclic Citrullinated Peptide Today M19.049 - Primary osteoarthritis, unspecified hand THU Reflex Titer and Pattern Today M19.049 - Primary osteoarthritis, unspecified hand Complete Blood Count Auto Diff Today M19.049 - Primary osteoarthritis, unspecified hand XR Hand Bilat min 3v Today M19.049 - Primary osteoarthritis, unspecified hand XR cervical spine 2V Today M19.049 - Primary osteoarthritis, unspecified hand Comprehensive Met. Panel Today M19.049 - Primary osteoarthritis, unspecified hand Medications: New meloxicam 7.5 mg PO DAILY 20 tabs 0RF Discontinued amoxicillin-pot clavulanate 875-125 mg Discontinued Reason: Change Referral Type 1 tab PO BID 20 tabs 0RF
[2024-09-04 12:31] VITALS: BP 122/78; PULSE 79; RESP 18; TEMP 36.8; O2SAT 98; BMI 21.7
== END 2024-09-04 15:19 | disposition home or self-care (01) ==
LOC: HO.HMCC 11:33
PROVIDERS: PCP Internal Medicine; Visit Provider Internal Medicine
DX: M19.049 Primary osteoarthritis, unspecified hand (principal)

== ENCOUNTER → 2024-09-04 13:22 | Outpatient (BNV) | payer MEDICARE, MEDICAID, SELFPAY | PROVIDERS: PCP Internal Medicine; Visit Provider Specialist | DX: M19.041 Primary osteoarthritis, right hand (principal); M19.042 Primary osteoarthritis, left hand | CPT/HCPCS: 72040; 73130 ==

== ENCOUNTER 2024-10-08 07:04 | Day surgery (SDC) | payer MEDICARE, MEDICAID, SELFPAY ==
[2024-10-04 12:33] VITALS: BMI 21.7
--- NOTE | 2024-10-07 12:44 | HO.ANESPROP2 ---
Documented by User: Ritu Ryder NP 10/07/24 12:47 HPI - Anesthesia Eval Consult details Narrative: 58yo F for Colonoscopy PMFSH Active Problems Active Problems: All Active Problems Hand arthritis (Acute) Pre-op examination (Acute) Vasovagal episode (Acute) Hyponatremia (Acute) Family history of colon cancer in mother (Acute) Irritable bowel syndrome with both constipation and diarrhea (Acute) Shoulder pain, right (Acute) Bilateral thumb pain (Acute) Elevated MCV (Acute) Dyspepsia (Acute) Diverticulitis (Acute) Mammogram declined (Acute) Celiac disease (Acute) Bipolar 1 disorder (Acute) Celiac disease (Acute) Hyperlipidemia (Acute) Lower back pain (Acute) GERD (gastroesophageal reflux disease) (Acute) Vitamin D deficiency (Acute) Environmental allergies (Acute) Past Medical History Medical History (Updated 10/08/24 @ 07:22 by Julianne Gonzalez RN) delivery delivered Hyperlipidemia Lower back pain Diverticulosis UTI (urinary tract infection) Celiac disease Vitamin D deficiency Environmental allergies Bipolar 1 disorder GERD (gastroesophageal reflux disease) Acute pancreatitis with uninfected necrosis Family History Family History Mother Stomach problems Mental health disorder Father Heart problem Daughter Diabetes Other Bipolar 1 disorder Surgical History Surgical History Hx of hemorrhoidectomy History of tonsillectomy History of esophagogastroduodenoscopy (EGD) Hx of colonoscopy History of carpal tunnel release (~2019) Social History Social History Household Members: Significant Other Housing: House Do you presently have visiting nurse or other home services: No Alcohol intake: current Alcohol intake frequency: 0-2 drinks per day Alcohol type: wine Patient Tobacco Use Status: Current everyday Tobacco user Tobacco use type: Cigarette Cigarettes Per Day: 3 e-Cigarette/Vaping Use: Former Use Substance Use Type: Marijuana Have you been hit, kicked, punched, or otherwise hurt by someone within the past year? If so, by whom?: No Are you DNR?: No Advance Directives: No Advance Directives Information Provided: Yes Advance Directives Date on File: 10/05/20 service: No Current occupational status: disabled Cognitive needs: No Hearing needs: No Vision needs: Yes Meds Allergies Allergy/AdvReac Type Severity Reaction Status Date / Time lamotrigine [LAMOTRIGINE] Allergy Severe Rash Verified 09/04/24 12:35 Sulfa (Sulfonamide Allergy Mild itchy Verified 09/04/24 12:35 Antibiotics) sulfamethoxazole Allergy Mild Itching Verified 09/04/24 12:35 [From ] trimethoprim [From ] Allergy Mild Itching Verified 09/04/24 12:35 Home Medications ?Medication ?Instructions ?Recorded ?Confirmed ?Last Taken ?Type lorazepam 1 mg tablet 1 mg PO DAILY PRN Anxiety 02/08/22 10/04/24 Unknown History carbamazepine 200 mg tablet 300 mg PO TID 08/31/23 10/04/24 10/08/24 History btjcnywx-aatanpa-vhft-lutein tablet 1 tab PO DAILY 03/07/24 10/04/24 Unknown History Exam Height,Weight and Vital Signs: Height 5 ft 1 in Weight 52.163 kg Assessment and Plan Assessment Anesthesia Assessment: Chart Reviewed Documented by User: Gustavo Luna MD 10/08/24 08:20 PMF Past Medical History Medical History (Updated 10/08/24 @ 07:22 by Julianne Gonzalez RN) delivery delivered Hyperlipidemia Lower back pain Diverticulosis UTI (urinary tract infection) Celiac disease Vitamin D deficiency Environmental allergies Bipolar 1 disorder GERD (gastroesophageal reflux disease) Acute pancreatitis with uninfected necrosis Family History Family History Mother Stomach problems Mental health disorder Father Heart problem Daughter Diabetes Other Bipolar 1 disorder Family history of problems with anesthesia: No Surgical History Surgical History Hx of hemorrhoidectomy History of tonsillectomy History of esophagogastroduodenoscopy (EGD) Hx of colonoscopy History of carpal tunnel release (~2019) History of Problems with Anesthesia: No Social History Social History Household Members: Significant Other Housing: House Do you presently have visiting nurse or other home services: No Alcohol intake: current Alcohol intake frequency: 0-2 drinks per day Alcohol type: wine Patient Tobacco Use Status: Current everyday Tobacco user Tobacco use type: Cigarette Cigarettes Per Day: 3 e-Cigarette/Vaping Use: Former Use Substance Use Type: Marijuana Have you been hit, kicked, punched, or otherwise hurt by someone within the past year? If so, by whom?: No Are you DNR?: No Advance Directives: No Advance Directives Information Provided: Yes Advance Directives Date on File: 10/05/20 service: No Current occupational status: disabled Cognitive needs: No Hearing needs: No Vision needs: Yes Meds Allergies Allergy/AdvReac Type Severity Reaction Status Date / Time lamotrigine [LAMOTRIGINE] Allergy Severe Rash Verified 09/04/24 12:35 Sulfa (Sulfonamide Allergy Mild itchy Verified 09/04/24 12:35 Antibiotics) sulfamethoxazole Allergy Mild Itching Verified 09/04/24 12:35 [From Septra] trimethoprim [From Febra] Allergy Mild Itching Verified 09/04/24 12:35 Home Medications ?Medication ?Instructions ?Recorded ?Confirmed ?Last Taken ?Type lorazepam 1 mg tablet 1 mg PO DAILY PRN Anxiety 02/08/22 10/04/24 Unknown History carbamazepine 200 mg tablet 300 mg PO TID 08/31/23 10/04/24 10/08/24 History plsmwfdk-ezfwhoe-gvpq-lutein tablet 1 tab PO DAILY 03/07/24 10/04/24 Unknown History Exam Airway Mallampati Class: II TM Dist: >3cm Neck ROM: Full Loose/Missing/Broken Teeth: No Heart: ok Lungs: ok Assessment and Plan Assessment Anesthesia Assessment: Anesthesia Plan Discussed Final Anesthetic Review Family History of Problems with Anesthesia: No History of Problems with Anesthesia: No NPO: Yes ASA Class: II Final Preanesthetic Review: No Changes in Pt Med Stat, Meds/Allgs Chart Reviewed, Consent Obtained/Reviewed and Anes Risks/Benef Reviewed Patient Risk: Low Procedure Risk: Low Anesthetic Plan Anesthetic Plan: MAC: and Agree w/ Assess. and Plan Disposition: Standard PACU
[2024-10-08 07:09] VITALS: BP 128/78; PULSE 63; RESP 19; TEMP 36.1; O2SAT 97; BMI 21.8
[2024-10-08] MEDS: Lactated Ringers 1,000 ML 100 ML IVCONT (07:28)
--- NOTE | 2024-10-08 07:40 | MHC.SHP ---
Pre-Procedural Eval Section A - 24 Hr Update-Section A only Date of Service: 10/08/24 Section B - Complete if H&P > 30 days Chief Complaint: Diverticulitis of intestine,celiac disease, Relevant Family History (Specify if Yes): No Relevant Social History: Tobacco Use Present Medications: see Short Stay Collaborative assessment Medical History: Significant History (Vaginal parminder Diarrhea Diverticulosis Acute pancreatitis with uninfected necrosis Tooth infection UTI (urinary tract infection) Annual physical exam Candidiasis of mouth and esophagus Celiac disease Hyperlipidemia Bilateral thumb pain Lower back pain Vitamin D deficiency Environmental allergies Ma) History of Previous Operations: Relevant previous surgery/procedure and date(s) (Hx of hemorrhoidectomy History of tonsillectomy History of esophagogastroduodenoscopy (EGD) Hx of colonoscopy History of carpal tunnel release (~2019)) Allergies: Allergies Allergy/AdvReac Type Severity Reaction Status Date / Time lamotrigine [LAMOTRIGINE] Allergy Severe Rash Verified 09/04/24 12:35 Sulfa (Sulfonamide Allergy Mild itchy Verified 09/04/24 12:35 Antibiotics) sulfamethoxazole Allergy Mild Itching Verified 09/04/24 12:35 [From Septra] trimethoprim [From Septra] Allergy Mild Itching Verified 09/04/24 12:35 Review of Systems Sugical H&P ROS: Negative: Constitution, Cardiovascular, Respiratory, Neurological, Psychiatric, Hem-Onc, Allergic/Immunologic, Gastrointestinal, Genitourinary, Musculoskeletal, Integumentary, Endocrine and Eyes/Ears/Nose/Throat Exam Surgical H&P Exam: Normal: HEENT, Normal: Heart, Normal: Lungs, Normal: Extremities, Normal: Abdomen, Normal: Skin and Normal: Neurological Plan Diagnosis/Plan: Unchanged I have reviewed the history and physical and performed a pertinent physical examination on my patient. No changes have occurred unless specified. Time Spent With Patient Time: Total time managing care of this patient today ____ minutes.
--- NOTE | 2024-10-08 08:41 | P.OPN-COLO_ITS ---
Colonoscopy Operative Note Operative Note Date of Service: 10/08/24 Narrative: Operative Information Procedure Description: Colonoscopy Indication: screening Anesthesia: MAC COLONOSCOPY Instrument: Olympus variable stiffness pediatric scope 190L Colonoscopy Monitoring: Vital signs and clinical assessment, continuous EKG monitoring, Pulse oximetry, Carbon Dioxide monitoring and blood pressure monitoring were done throughout the procedure. Colon withdrawal time was 18 minutes. Procedure: The patient was placed in the left lateral decubitis position and pre-procedure medications were administered. After a digital rectal examination of the ano-rectum, the video colonoscope was inserted into the rectum and advanced through the colon to the cecum/TI. The colonoscope was slowly withdrawn in a retrograde panoramic fashion and the colon mucosa was carefully examined including a retroflexed view of the rectum. Findings and interventions are described below. Procedure Difficulty: moderate Findings: Terminal Ileum-normal Cecum:normal Right sided retrofelxion- normal Ascending Colon: normal Transverse Colon -normal Descending Colon:normal Sigmoid Colon: moderate severe diverticulosis, Rectum: Retroflexion with small internal hemorrhoids seen, grade I with skin tags, one tag looked more prominent, small biopsy taken, 10 mm sessile polyp noted, removed with hot snare and x 1 clip applied for hemostasis Anorectum - normal Intervention: cold forceps, hot snare polypectomy, clip Colon preparation: [place] Bowel Preparation Scale Right colon; 2 Transverse colon: 2 Left colon; 2 (0 = Unprepared colon segment with mucosa not seen due to solid stool that cannot be cleared. 1 = Portion of mucosa of the colon segment seen, but other areas of the colon segment not well seen due to staining, residual stool and/or opaque liquid. 2 = Minor amount of residual staining, small fragments of stool and/or opaque liquid, but mucosa of colon segment seen well. 3 = Entire mucosa of colon segment seen well with no residual staining, small fragments of stool or opaque liquid) Impression and Post Procedure Diagnosis: diverticulosis colon polyp x 1 internal hemorrhoids Plan: High fiber diet leaflet Avoid straining at stool, epsom salts and sitz bath, anusol supps or cream Repeat Colonoscopy in 5 years due to polyp or earlier if clinically indicated Above findings were reviewed with the patient and relevant handouts were provided if indicated.
[2024-10-08 08:45] VITALS: BP 129/71; PULSE 61; RESP 18; TEMP 36.1; O2SAT 99
[2024-10-08 09:06] VITALS: BP 143/74; PULSE 66; RESP 18; TEMP 36.3; O2SAT 99
== END 2024-10-08 09:32 | disposition home or self-care (01) ==
PROVIDERS: PCP Internal Medicine; Visit Provider Internal Medicine Gastroenterology
PROC: 0DJD8ZZ Inspection of Lower Intestinal Tract, Via Natural or Artificial Opening Endoscopic (ICD-10-PCS; CPT 45378; principal; 2024-10-08 08:10)
DX: Z12.11 Encounter for screening for malignant neoplasm of colon (principal); Z80.0 Family history of malignant neoplasm of digestive organs; K62.1 Rectal polyp; K64.4 Residual hemorrhoidal skin tags; K57.30 Diverticulosis of large intestine without perforation or abscess without bleeding; Z87.19 Personal history of other diseases of the digestive system; K64.0 First degree hemorrhoids; K90.0 Celiac disease; K86.81 Exocrine pancreatic insufficiency; K58.2 Mixed irritable bowel syndrome; K85.81 Other acute pancreatitis with uninfected necrosis; K21.9 Gastro-esophageal reflux disease without esophagitis; E78.5 Hyperlipidemia, unspecified; E55.9 Vitamin D deficiency, unspecified; J30.9 Allergic rhinitis, unspecified; Z79.899 Other long term (current) drug therapy; Z88.2 Allergy status to sulfonamides; Z88.8 Allergy status to other drugs, medicaments and biological substances; F17.210 Nicotine dependence, cigarettes, uncomplicated
CPT/HCPCS: 45385; 45380; 88305; J2003; J2704

== ENCOUNTER → 2024-10-08 07:04 | Outpatient (BNV) | payer MEDICARE, MEDICAID, SELFPAY | PROVIDERS: PCP Internal Medicine; Visit Provider Internal Medicine Gastroenterology | DX: Z12.11 Encounter for screening for malignant neoplasm of colon (principal); K62.1 Rectal polyp; K57.30 Diverticulosis of large intestine without perforation or abscess without bleeding; K64.0 First degree hemorrhoids; K64.4 Residual hemorrhoidal skin tags | CPT/HCPCS: 45380; 45385 ==

== ENCOUNTER 2025-03-19 11:58 | Outpatient (AMB) | payer MEDICARE, MEDICAID, SELFPAY ==
--- NOTE | 2025-03-19 12:08 | A.OFFPC_ITS ---
Vital Signs 03/19/25 12:11 Height 5 ft 1 in Weight 118 lb BMI 22.3 BP 126/74 Blood Pressure Location Rt brachial Position Sitting Respiration 17 Pulse 89 Pulse Source Pulse Oximeter Temp 98.3 F Temp Source Oral Pulse Oximetry (%) 97 Oxygen Delivery Method Room Air Intake Visit Reasons: Annual PE Intake Note: Pt is here today for PE. Allergies lamotrigine (LAMOTRIGINE) Allergy (Severe, Verified 03/19/25 12:12) Rash Sulfa (Sulfonamide Antibiotics) Allergy (Mild, Verified 03/19/25 12:12) itchy sulfamethoxazole (From Septra) Allergy (Mild, Verified 03/19/25 12:12) Itching trimethoprim (From Septra) Allergy (Mild, Verified 03/19/25 12:12) Itching Medication List - Last Reconciled 03/19/25 by Carlyn Azul MD buspirone 30 mg PO BID carbamazepine 300 mg PO TID dicyclomine 10 mg PO BID docusate sodium 100 mg PO BEDTIME famotidine (Pepcid) 40 mg PO BEDTIME 30 days lorazepam 1 mg PO DAILY PRN cvpruphs-wlacxau-lfxf-lutein 1 tab PO DAILY sennosides (Senna Laxative) 17.2 mg (2 x 8.6 mg) PO BEDTIME PRN sodium,potassium,mag sulfates 17.5-3.13-1.6 gram (Suprep Bowel Prep Kit) 480 mL orally; FOR COLONOSCOPY PREP Tobacco use date assessed: 03/19/25 Dental Screening Dental Screen Date: 09/04/24 HPI Annual PE HPI0 Details Pt presents for PE. Patient complains of chronic neck pain radiating to right upper extremity and tingling and numbness sensation when turning her he ad to the right side. She denies any weakness in extremities or balance change. Bipolar disorder is stable on current medications she is established with a counselor and prescriber [facility] Medical History (Updated 03/19/25 @ 13:41 by Carlyn Azul MD) Annual physical exam Hyperlipidemia Lower back pain Diverticulosis UTI (urinary tract infection) Celiac disease Vitamin D deficiency Environmental allergies Bipolar 1 disorder GERD (gastroesophageal reflux disease) Acute pancreatitis with uninfected necrosis Surgical History (Updated 03/19/25 @ 13:08 by Carlyn Azul MD) Hx of colonoscopy Hx of hemorrhoidectomy History of tonsillectomy History of esophagogastroduodenoscopy (EGD) History of carpal tunnel release (~2019) Family History Mother Stomach problems Mental health disorder Father Heart problem Daughter Diabetes Other Bipolar 1 disorder Social History Household Members: Significant Other Housing: House Do you presently have visiting nurse or other home services: No Alcohol intake: current Alcohol intake frequency: 0-2 drinks per day Alcohol type: wine Patient Tobacco Use Status: Current everyday Tobacco user Tobacco use type: Cigarette Cigarettes Per Day: 3 e-Cigarette/Vaping Use: Former Use Substance Use Type: Marijuana Advance Directives Date on File: 10/05/20 service: No Current occupational status: disabled Cognitive needs: No Hearing needs: No Vision needs: Yes Questionnaire PHQ-9 Over the last 2 weeks, how often have you been bothered by any of the following problems? 1. Little interest or pleasure in doing things: more than half the days 2. Feeling down, depressed, or hopeless: not at all 3. Trouble falling or staying asleep, or sleeping too much: not at all 4. Feeling tired or having little energy: several days 5. Poor appetite or overeating: not at all 6. Feeling bad about yourself - or that you are a failure or have let yourself or your family down: not at all 7. Trouble concentrating on things, such as reading the newspaper or watching television: not at all 8. Moving or speaking so slowly that other people could have noticed. Or the opposite - being so fidgety or restless that you have been moving around a lot more than usual: several days 9. Thoughts that you would be better off or of hurting yourself in some way: not at all Total score: 4 Depression Screening Interpretation: Negative Depression Screening Done: Yes Source: Developed by Drs. Patel Lopez, Leslie Stevens, Alphonse Michael and colleagues, with an educational merlin from [employer] Thrive Questionnaire Date Thrive assessed: 08/28/24 I am a: Patient What is your living situation today?: I have a steady place to live Within the past 12 months, did the food you bought not last and you didn't have the money to get more?: I choose not to answer this question Within the past 12 months, did you worry whether your food would run out before you got money to buy more?: I choose not to answer this question Do you have trouble paying for medicines?: I choose not to answer this question Do you have trouble getting transportation to medical appointments?: No Do you have trouble paying your heating and electricity bill?: I choose not to answer this question Do you have trouble taking care of your child, family member or friend?: No Do you have trouble with day-to-day activities such as bathing, preparing meals, shopping, managing finances, etc.?: No Are you currently unemployed and looking for a job?: No Are you interested in more education?: No Please select the resources that you would like help with: None Currently or been in a relationship where the following occur: No concerns reported THRIVE Score: 0 AUDIT C Alcohol Use Questionnaire (AUDIT-C) 1. How often do you have a drink containing alcohol?: Monthly or less 2. How many drinks containing alcohol do you have on a typical day when you are drinking?: 1 or 2 3. How often do you have six or more drinks on one occasion?: Never Total Score: 1 PAVEL-7 AMB Questionnaire PAVEL-7 Date PAVEL - 7 assessed: 09/04/24 Feeling nervous, anxious, or on edge: 1 = Several days Not being able to stop or control worryin = Not at all Worrying too much about different things: 0 = Not at all Trouble relaxin = Several days Being so restless that it is hard to sit still: 1 = Several days Becoming easily annoyed or irritable: 1 = Several days Feeling afraid as if something awful might happen: 0 = Not at all Total PAVEL-7 score (0-4 normal; 5-9 mild; 10-14 moderate; 15-21 severe): 4 Source: Developed by Drs. Patel Lopez, Leslie Stevens, Alphonse Michael and colleagues, with an educational merlin from [employer] Review of Systems Const All systems reviewed & are unremarkable except as noted in HPI and below Eyes Reports no additional complaints ENT Reports no additional complaints Card Reports no additional complaints Resp Reports no additional complaints GI Reports no additional complaints Reports no additional complaints Physical exam (Primary Care) Vital Signs: Last Vital Signs Temp 98.3 F 03/19/25 12:11 Pulse 89 03/19/25 12:11 Resp 17 03/19/25 12:11 BP 126/74 03/19/25 12:11 Pulse Ox 97 03/19/25 12:11 Oxygen Delivery Method Room Air 03/19/25 12:11 BMI result Body Mass Index 22.3 Tobacco/Smoking Status: Tobacco use Status Tobacco use date assessed 03/19/25 03/19/25 12:12 Patient Tobacco Use Status Current everyday Tobacco 03/19/25 12:08 Tobacco use type Cigarette 03/19/25 12:08 e-Cigarette/Vaping Use Former Use 03/19/25 12:08 PHQ-9: PHQ-9 Score PHQ-9: Total score 4 03/19/25 12:34 Depression Screening Interpretation: Negative Thrive Assessment: Date of Thrive Assessment Date Thrive assessed 08/28/24 03/19/25 12:08 Currently or been in a relationship where the following occur: No concerns reported Const General: no acute distress HENMT Head: Yes normal to inspection General nose exam: Normal external nose present Face and sinus: Yes normal facial exam Mouth: Normal oral and palatal mucosa present Eyes General: appearance normal, both eyes and all related structures Neck Neck: Yes no lymphadenopathy and Yes supple Resp Effort & Inspection: normal respiratory effort Auscultation: clear to auscultation bilaterally Cardio Rhythm: regular rhythm Heart sounds: S1 normal heart sound present and S2 normal heart sound present GI Inspection: Yes normal to inspection Palpation (GI): Soft to palpation Percussion: Yes normal to percussion Auscultation: normal bowel sounds Back/Spine/Pelvis Other: Paraspinal tenderness in the right lower cervical region, right shoulder with full range of motion, deep tendon reflexes 2+ bilaterally Neuro Cranial nerves: Yes CN's II-XII intact bilaterally Gait exam (Neuro): Normal gait present Coordination: [id number] test normal Romberg Test: Negative Extrem General: Yes no clubbing, cyanosis or edema Coding Level of Care Code Est Pt Prev Care 40-64y(08872) Diagnoses Annual physical exam Z00.00 Vitamin D deficiency E55.9 Hyperlipidemia E78.5 Cervical radiculopathy M54.12 Bipolar 1 disorder F31.9 Assessment & Plan Assessment & Plan (1) Annual physical exam: Comment: Pt declined mammogram Code(s): Z00.00 - Encounter for general adult medical examination without abnormal findings Category: Medical Plan: Well-balanced diet regular physical activity discussed with the patient she is up-to-date with Pap smear negative in 2020, colonoscopy, and mammogram will be scheduled (2) Vitamin D deficiency: Code(s): E55.9 - Vitamin D deficiency, unspecified Category: Medical Plan: Continue vitamin-D (3) Hyperlipidemia: Code(s): E78.5 - Hyperlipidemia, unspecified Category: Medical Plan: Continue low-cholesterol diet return for fasting blood work (4) Cervical radiculopathy: Code(s): M54.12 - Radiculopathy, cervical region Category: Medical Plan: For chronic cervical radiculopathy patient will be referred to physical therapy and if her symptoms persist MRI of C-spine will be obtained (5) Bipolar 1 disorder: Comment: f/u with psychiatry Code(s): F31.9 - Bipolar disorder, unspecified Category: Medical Plan: Continue current medications Orders: Orders Vitamin D 25-OH Total Today E55.9 - Vitamin D deficiency, unspecified, E78.5 - Hyperlipidemia, unspecified, Z00.00 - Encounter for general adult medical examination without abnormal findings TSH reflex Free T4 Today E55.9 - Vitamin D deficiency, unspecified, E78.5 - Hyperlipidemia, unspecified, Z00.00 - Encounter for general adult medical examination without abnormal findings UA w Microscopic Today E55.9 - Vitamin D deficiency, unspecified, E78.5 - Hyperlipidemia, unspecified, Z00.00 - Encounter for general adult medical examination without abnormal findings Comprehensive [place]. Panel Fast Today E55.9 - Vitamin D deficiency, unspecified, E78.5 - Hyperlipidemia, unspecified, Z00.00 - Encounter for general adult medical examination without abnormal findings Complete Blood Count Auto Diff Today E55.9 - Vitamin D deficiency, unspecified, E78.5 - Hyperlipidemia, unspecified, Z00.00 - Encounter for general adult medical examination without abnormal findings Lipid Panel Today E55.9 - Vitamin D deficiency, unspecified, E78.5 - Hyperlipidemia, unspecified, Z00.00 - Encounter for general adult medical examination without abnormal findings PT Evaluation and Treatment Today M54.12 - Radiculopathy, cervical region
[2025-03-19 12:11] VITALS: BP 126/74; PULSE 89; RESP 17; TEMP 36.8; O2SAT 97; BMI 22.3
== END 2025-03-19 13:43 | disposition home or self-care (01) ==
LOC: HO.HMCC 11:59
PROVIDERS: PCP Internal Medicine; Visit Provider Internal Medicine
DX: Z00.00 Encounter for general adult medical examination without abnormal findings (principal); E55.9 Vitamin D deficiency, unspecified; E78.5 Hyperlipidemia, unspecified; M54.12 Radiculopathy, cervical region; F31.9 Bipolar disorder, unspecified

== ENCOUNTER → 2025-03-19 11:58 | Outpatient (BNVA) | payer MEDICARE, MEDICAID, SELFPAY | PROVIDERS: PCP Internal Medicine; Visit Provider Internal Medicine | DX: Z00.00 Encounter for general adult medical examination without abnormal findings (principal); E55.9 Vitamin D deficiency, unspecified; F31.9 Bipolar disorder, unspecified; E78.5 Hyperlipidemia, unspecified; M54.12 Radiculopathy, cervical region | CPT/HCPCS: 96127; 99396 ==